=== PATIENT | male | born 1980 | race Caucasian/White ===

== ENCOUNTER 2023-07-12 13:34 | Outpatient (AMB) | payer OTHER, SELFPAY ==
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
== END 2023-07-12 13:59 | disposition home or self-care (01) ==
LOC: HO.HOP 13:34
PROVIDERS: Visit Provider Clinical Nurse Specialist Psychiatric/Mental Health
DX: F32.1 Major depressive disorder, single episode, moderate (principal); F43.12 Post-traumatic stress disorder, chronic; F41.0 Panic disorder [episodic paroxysmal anxiety]
CPT/HCPCS: 99214

== ENCOUNTER → 2023-07-12 13:34 | Outpatient (BNVA) | payer OTHER, SELFPAY | PROVIDERS: Visit Provider Clinical Nurse Specialist Psychiatric/Mental Health | DX: F43.10 Post-traumatic stress disorder, unspecified (principal); F41.0 Panic disorder [episodic paroxysmal anxiety]; F32.9 Major depressive disorder, single episode, unspecified | CPT/HCPCS: 99212 ==

== ENCOUNTER 2023-09-06 11:31 | Outpatient (AMB) | payer OTHER, SELFPAY ==
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
== END 2023-09-06 14:35 | disposition home or self-care (01) ==
LOC: HO.HOP 11:31
PROVIDERS: Visit Provider Clinical Nurse Specialist Psychiatric/Mental Health
DX: F41.0 Panic disorder [episodic paroxysmal anxiety] (principal); F32.9 Major depressive disorder, single episode, unspecified; F43.12 Post-traumatic stress disorder, chronic
CPT/HCPCS: 99214

== ENCOUNTER → 2023-09-06 11:31 | Outpatient (BNVA) | payer OTHER, SELFPAY | PROVIDERS: Visit Provider Clinical Nurse Specialist Psychiatric/Mental Health | DX: F41.0 Panic disorder [episodic paroxysmal anxiety] (principal); F32.9 Major depressive disorder, single episode, unspecified; F43.12 Post-traumatic stress disorder, chronic | CPT/HCPCS: 99212 ==

== ENCOUNTER 2023-12-07 13:40 | Outpatient (AMB) | payer OTHER, SELFPAY ==
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
== END 2023-12-07 14:01 | disposition home or self-care (01) ==
LOC: HO.HOP 13:40
PROVIDERS: PCP Family Medicine; Visit Provider Clinical Nurse Specialist Psychiatric/Mental Health
DX: F43.12 Post-traumatic stress disorder, chronic (principal); F33.1 Major depressive disorder, recurrent, moderate
CPT/HCPCS: 99214

== ENCOUNTER → 2023-12-07 13:40 | Outpatient (BNVA) | payer OTHER, SELFPAY | PROVIDERS: PCP Family Medicine; Visit Provider Clinical Nurse Specialist Psychiatric/Mental Health | DX: F33.1 Major depressive disorder, recurrent, moderate (principal); F43.12 Post-traumatic stress disorder, chronic; Z71.89 Other specified counseling | CPT/HCPCS: 99212 ==

== ENCOUNTER 2024-02-19 13:06 | Outpatient (AMB) | payer OTHER, SELFPAY ==
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
== END 2024-02-19 13:10 | disposition home or self-care (01) ==
LOC: HO.HOP 13:06
PROVIDERS: PCP Family Medicine; Visit Provider Clinical Nurse Specialist Psychiatric/Mental Health
DX: F43.12 Post-traumatic stress disorder, chronic (principal); F33.1 Major depressive disorder, recurrent, moderate
CPT/HCPCS: 99214

== ENCOUNTER → 2024-02-19 13:06 | Outpatient (BNVA) | payer OTHER, SELFPAY | PROVIDERS: PCP Family Medicine; Visit Provider Clinical Nurse Specialist Psychiatric/Mental Health ==

== ENCOUNTER 2024-04-15 11:32 | Outpatient (AMB) | payer OTHER, SELFPAY ==
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
== END 2024-04-15 12:03 | disposition home or self-care (01) ==
LOC: HO.HOP 11:32
PROVIDERS: PCP Family Medicine; Visit Provider Clinical Nurse Specialist Psychiatric/Mental Health
DX: F43.12 Post-traumatic stress disorder, chronic (principal); F33.1 Major depressive disorder, recurrent, moderate; F10.10 Alcohol abuse, uncomplicated
CPT/HCPCS: 99215

== ENCOUNTER → 2024-04-15 11:32 | Outpatient (BNVA) | payer OTHER, SELFPAY | PROVIDERS: PCP Family Medicine; Visit Provider Clinical Nurse Specialist Psychiatric/Mental Health | DX: F43.12 Post-traumatic stress disorder, chronic (principal); F33.1 Major depressive disorder, recurrent, moderate; F10.10 Alcohol abuse, uncomplicated | CPT/HCPCS: 99212 ==

== ENCOUNTER 2024-06-17 11:47 | Outpatient (AMB) | payer OTHER, SELFPAY ==
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
--- OUTSIDE RECORDS SUMMARY | 2024-06-17 12:58 | XMS_ITS | Continuity of Care Document ---
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 lobes, but also present in the lower lobe. Bibasilar atelectasis within the dependent portions of the lungs. Trace right pleural effusion. Mediastinum and carson: No mass or hematoma. No mediastinal or hilar lymphadenopathy. No esophageal abnormality. Normal thyroid. Heart: Heart is normal in size. No pericardial effusion. Mild coronary artery calcification. Aorta: No aortic aneurysm. Pulmonary arteries: Normal caliber. No evidence of pulmonary embolism on this study performed without angiographic technique. Chest wall soft tissues: No acute abnormality. Diaphragm: Intact. Liver: Normal in attenuation and morphology. No suspicious lesion. Gallbladder: No CT evidence of gallbladder pathology. Bile ducts: No biliary ductal dilation. Spleen: Normal in size. Pancreas: No suspicious lesion or ductal dilatation. Adrenal glands: No nodule. Kidneys and ureters: No hydronephrosis, stone, or suspicious lesion. Bladder: Normal. Reproductive organs: Normal prostate and seminal vesicles. Stomach, small bowel, and large bowel: Normal stomach with enteric tube tip in proper position. Normal caliber small bowel without evidence of obstruction. Liquid stool within the descending and sigmoid colon. Appendix: Normal appendix. Peritoneum and retroperitoneum: Trace free fluid in the pelvis. No pneumoperitoneum. No omental or mesenteric lesions. Lymph nodes: No enlarged lymph nodes. Blood vessels: Mild vascular calcifications but no aneurysm. No evidence of venous thrombosis. Abdominal and pelvic wall soft tissues: No acute abnormality. Bones: No acute abnormality. No acute fractures. IMPRESSION: 1. Diffuse groundglass opacities throughout the RIGHT lung. With the presence of minimal mucous/debris in the bronchus intermedius, could represent aspiration pneumonitis. 2. Liquid stool within the descending and sigmoid colon suggestive of diarrheal illness. 3. ET and enteric tubes in good position. 4. Trace free fluid in the pelvis. No free air. I have personally reviewed the images and I agree with this report. WSN: [id number] Ordering Physician: Cici Perea Dictated By: Aubrey Yun DO Dictated Date/Time: 05/24/24 8:26 pm Reviewed By: Azeb Griffin MD Signed By: Azeb Griffin MD Signed Date/Time: 05/24/24 8:31 pm Transcribed By: TOM Transcribed Date/Time: 05/24/24 8:07 pm * Exam Date Time Procedure Performing Provider Status 05/24/24 6:[address] Cervical Spine W/O Contrast Karo Cardona; Snow (Verified) Notes: (CT Cervical Spine W/O Contrast) Reason For Exam: Neck trauma, dangerous injury mechanism;Other: RESULT: CT Cervical Spine W/O Contrast CT Head/Brain W/O Contrast, CT Cervical Spine W/O Contrast INDICATION: Reason: Head trauma, mod-severe; Clinical Question(s): Hematoma TECHNIQUE: Noncontrast head CT using axial technique was reconstructed in axial and coronal planes.Noncontrast spiral CT through the cervical spine was formatted in 3 planes. Automatic tube modulation was used for the cervical spine and iterative dose reconstruction was used for both the head and cervical spine to optimize scan parameters and image quality. CTDIvol Body: 19.80 mGy, DLP Body: 569 mGy*cm. CTDIvol Head: 45.80 mGy, DLP Head: 773 mGy*cm. COMPARISON: This examination was performed emergently using a temporary medical record and no priorimaging or medical history was available for review at the time of this interpretation. FINDINGS: Car Ferrier View Findings, Lines and Tubes: Intubated with c-collar in place. BRAIN AND EXTRA-AXIAL SPACES: No parenchymal hemorrhage, midline shift, or mass effect. Mccann-white matter differentiation is wellpreserved. No acute infarct. Negative insular ribbon and hyperdense vessel signs. Ventricles, sulci, and basilar cisterns are normal. No white matter lesions. No subarachnoid hemorrhage. No subdural or epidural collection. CALVARIUM, SKULL BASE, AND SOFT TISSUES: No fractures or suspicious bony lesions. Mucous retention cyst within the left maxillary sinus. Otherwise the paranasal sinuses and mastoid air cells are clear. Visualized orbits and globes are intact. The extracranial soft tissues are unremarkable. CERVICAL SPINE: No acute fracture. No acute osseous abnormalities. Normal alignment. No locked or perched facet. Intervertebral disc spaces and vertebral body heightsare preserved. OTHER BONES: No acute abnormality. CERVICAL SOFT TISSUES AND LUNG APICES: Normal soft tissues. Scattered small groundglass opacities and tree-in-bud opacities within the included RIGHT lung apex. Normal thyroid. IMPRESSION: No acute abnormality of the head or cervical spine. Groundglass and tree-in-bud opacities in the included RIGHT lung apex. I have personally reviewed the images and I agree with this report. WSN: [id number] Ordering Physician: Cici Perea Dictated By: Aubrey Yun DO Dictated Date/Time: 05/24/24 7:45 pm Reviewed By: Azeb Griffin MD Signed By: Azeb Griffin MD Signed Date/Time: 05/24/24 7:50 pm Transcribed By: TOM Transcribed Date/Time: 05/24/24 7:40 pm Vital Signs Most recent to oldest [Reference Range]: 1 2 3 Weight 117.1 kg (05/27/24 5:31 AM) 116.0 kg (05/24/24 8:52 PM) 116.0 kg (05/24/24 8:49 PM) Oxygen Saturation [94-100 %] 95 % (05/29/24 11:00 AM) 97 % (05/29/24 8:00 AM) 96 % (05/29/24 4:29 AM) Pulse Rate [55-90 bpm] 102 bpm *H* (05/29/24 11:00 AM) 99 bpm *H* (05/29/24 8:00 AM) 87 bpm (05/29/24 4:29 AM) Blood Pressure [90-138/55-84 mm Hg] 128/83mm Hg (05/29/24 11:00 AM) 136/65mm Hg (05/29/24 8:36 AM) 138/84mm Hg (05/29/24 8:00 AM) Respiratory Rate [16-30 br/min] 18 br/min (05/29/24 11:00 AM) 18 br/min (05/29/24 9:36 AM) 18 br/min (05/29/24 4:29 AM) Temperature [96.8-100.4 DegF] 98.3 DegF (05/29/24 11:00 AM) 97.2 DegF (05/29/24 8:00 AM) 98.2 DegF (05/29/24 4:29 AM) Liters per Minute 0 L/min (05/27/24 12:00 PM) 3 L/min (05/27/24 11:00 AM) 3 L/min (05/27/24 10:00 AM) Mode of Delivery (Oxygen) Room air (05/29/24 11:00 AM) Room air (05/29/24 8:00 AM) Room air (05/29/24 4:29 AM) Blood pressure sites Arm, right (05/29/24 11:00 AM) Arm, right (05/29/24 8:00 AM) Arm, right (05/29/24 4:29 AM) Temperature Route Oral (05/29/24 11:00 AM) Oral (05/29/24 8:00 AM) Oral (05/29/24 4:29 AM) Dry Weight 119 kg (05/24/24 8:49 PM) 119 kg (05/24/24 7:50 PM) Weight Obtained Via Bed scale (05/27/24 5:31 AM) Bed scale (05/24/24 8:52 PM) Bed scale (05/24/24 8:49 PM) Social History Social History Type Response Tobacco Use: 4 or less cigar ettes(less than 1/4 pack)/day in last 30 days. Other: Patient 2 cig on patch currently 06/24/2020. Sex Male Sex Representation Male (finding) History and physical note * Cici Perea MD: MODIFY, MODIFY, SIGN, VERIFY, MODIFY, MODIFY, PERFORM, MODIFY Event Display: History and Physical Hospital Authored Date: [id number] Patient: TRAUMA, [id number] Age: 89 years Sex: Male : Associated Diagnoses: None Author: Cici Perea MD Trauma History 43yoM cat1 trauma found down. +LOC, ?EtOH, GCS 9. Per EMS, family heard a thud, found the patient down, tonic movements, small amount of blood in airway. 180/120, bgl 220, HR115, attempted intubationbut he pulled it out, mary mays respirations Upon arrival, primary survey was completed and is as follows: airway patent, breath sounds present equal bilaterally, BP 147/88, pupils 3mm and reactive, GCS 8 (E3 V2 M3). Secondary survey was completed and is documented below. [place] collar was placed in the field for c-spine precaution. IV fluids were administered. 4mg Ativan were given. EFAST was performed and was positive for fluid in the RUQ otherwise negative. He was intubated in the trauma bay due to GCS8 with 20mg etomidate and 100mg rocuronium. OGT was placed with immediate return of dark brown/ sanguineous fluid. Following CXR, the patient was taken to CT for further workup. Past Medical History seizure depression hypertension Past Surgical History unknown Medications unknown Allergies latex, penicillin Family History noncontributory Social History unknown Review of Systems A 14-point review of systems was negative except as documented above Past Medical History Allergies No active allergies have been recorded. Social History Social History No qualifying data available. . Physical Examination Vital Signs: BP 147/88, HR 120, RR52 shallow, SpO2 100% on 15L O2 mask General: no acute distress, alert, awake Head: normocephalic, atraumatic, no hematomas, no abrasions, no wounds, no deformities Face: no ecchymosis, no abrasions, no wounds Eyes: pupils are 3mm, equal, round, and reactive; downward fixed gaze Ears: no hemotympanum, no blood in external auditory canal, no abrasions, no smith's sign Nose: no epistaxis, no deformity Mandible: no deformity, no malocclusion Neck: cervical-collar in place, no hematoma, no ecchymosis, no wounds, trachea midline Chest: symmetric, no deformity, sternum, chest wall, and clavicles are nontender to palpation, no crepitus appreciated Heart: regular rate and rhythm Lungs: clear to auscultation bilaterally Abdomen: soft, nondistended, nontender, no wounds, no ecchymosis, no hematoma Pelvis: stable, nontender Back: no ecchymosis, no abrasions, no hematoma, no wounds Cervical spine: no midline deformities or stepoffs, no tenderness, cervical- collar in place Thoracic spine: no midline deformities or stepoffs, no tenderness Lumbar spine: no midline deformities or stepoffs, no tenderness Extremities: no long bone deformities, no wounds, no abrasions, no ecchymosis, no hematomas, full active range of motion Neurologic: GCS8; 5/5 strength and sensation to light touch intact in the bilateral upper and lowerextremities Vascular: palpable dorsalis pedis and radial pulses bilaterally Results Review Group Detail Date Value w/Units Flags Normal Range Normal Reference Text Comment Ind CHEM GENERAL Glucose, POC 05/25/2024 05:29:00 EST 136 mg/dL H 70-99 CHEM GENERAL Sodium 05/25/2024 03:36:00 EST 139 mmol/L 133-145 CHEM GENERAL Potassium 05/25/2024 03:36:00 EST 4.9 mmol/L 3.6-5.2 CHEM GENERAL Chloride 05/25/2024 03:36:00 EST 99 mmol/L 98-107 CHEM GENERAL Bicarbonate Level 05/25/2024 03:36:00 EST 23 mmol/L 22-29 CHEM GENERAL Anion Gap 05/25/2024 03:36:00 EST 17 mmol/L 4-17 CHEM GENERAL Glucose Level 05/25/2024 03:36:00 EST 171 mg/dL H 70-99 CHEM GENERAL BUN 05/25/2024 03:36:00 EST 16 mg/dL 8-23 CHEM GENERAL Creatinine-Blood 05/25/2024 03:36:00 EST 1.11 mg/dL 0.7-1.2 CHEM GENERAL Estimated GFR Creatinine 05/25/2024 03:36:00 EST 51 ML/MIN/1.73 M2 Y CHEM GENERAL Calcium 05/25/2024 03:36:00 EST 10.3 mg/dL 8.6-10.5 CHEM GENERAL Phosphorus 05/25/2024 03:36:00 EST 2.0 mg/dL L 2.5-4.5 CHEM GENERAL Magnesium 05/25/2024 03:36:00 EST 2.4 mg/dL H 1.6-2.3 CHEM GENERAL Protein, Total 05/25/2024 03:36:00 EST 8.7 Gm/dL H 6.2-8.2 CHEM GENERAL Albumin 05/25/2024 03:36:00 EST 4.6 Gm/dL 3.4-4.8 CHEM GENERAL AG Ratio 05/25/2024 03:36:00 EST 1.1 CHEM GENERAL Alkaline Phosphatase 05/25/2024 03:36:00 EST 100 units/L 40-129 CHEM GENERAL AST (SGOT) 05/25/2024 03:36:00 EST 36 units/L 0-40 CHEM GENERAL ALT (SGPT) 05/25/2024 03:36:00 EST 33 units/L 0-41 CHEM GENERAL Bilirubin, Total 05/25/2024 03:36:00 EST 0.3 mg/dL 0-1.2 BLOOD COUNT & DIFF WBC 05/25/2024 02:28:00 EST 16.0 k/mm3 H 4.0-11.0 BLOOD COUNT & DIFF RBC 05/25/2024 02:28:00 EST 5.44 m/mm3 4.70-6.10 BLOOD COUNT & DIFF Hgb 05/25/2024 02:28:00 EST 16.8 Gm/dL 13.7-17.1 BLOOD COUNT & DIFF Hct 05/25/2024 02:28:00 EST 48.4 % 40.5-50.0 BLOOD COUNT & DIFF MCV 05/25/2024 02:28:00 EST 89.0 femtoliters 80.0-94.0 BLOOD COUNT & DIFF MCH 05/25/2024 02:28:00 EST 30.9 pg 27.0-34.0 BLOOD COUNT & DIFF MCHC 05/25/2024 02:28:00 EST 34.7 Gm/dL 33.0-37.0 BLOOD COUNT & DIFF Platelet Count 05/25/2024 02:28:00 EST 243 k/mm3 150-460 BLOOD COUNT & DIFF RDW-SD 05/25/2024 02:28:00 EST 46.1 femtoliters BLOOD COUNT & DIFF MPV 05/25/2024 02:28:00 EST 11.3 femtoliters 9.4-12.4 BLOOD COUNT & DIFF Nucleated RBC (Automated) 05/25/2024 02:28:00 EST 0.0 #/100 WBC'S BLOOD COUNT & DIFF Abs. NRBC 05/25/2024 02:28:00 EST 0.0 k/mm3 CHEM GENERAL Sodium 05/25/2024 02:28:00 EST HEMOLYZED mmol/L 133-145 Y CHEM GENERAL Potassium 05/25/2024 02:28:00 EST HEMOLYZED mmol/L 3.6-5.2 Y CHEM GENERAL Chloride 05/25/2024 02:28:00 EST HEMOLYZED mmol/L 98-107 Y CHEM GENERAL Bicarbonate Level 05/25/2024 02:28:00 EST HEMOLYZED mmol/L 22-29 Y CHEM GENERAL Anion Gap 05/25/2024 02:28:00 EST Unable to calculate mmol/L 4-17 CHEM GENERAL Glucose Level 05/25/2024 02:28:00 EST HEMOLYZED mg/dL 70-99 Y CHEM GENERAL BUN 05/25/2024 02:28:00 EST HEMOLYZED mg/dL 8-23 Y CHEM GENERAL Creatinine-Blood 05/25/2024 02:28:00 EST HEMOLYZED mg/dL 0.7-1.2 Y CHEM GENERAL Estimated GFR Creatinine 05/25/2024 02:28:00 EST Unable to calculate ML/MIN/1.73 M2 Y CHEM GENERAL Calcium 05/25/2024 02:28:00 EST HEMOLYZED mg/dL 8.6-10.5 Y CHEM GENERAL Phosphorus 05/25/2024 02:28:00 EST HEMOLYZED mg/dL 2.5-4.5 Y CHEM GENERAL Magnesium 05/25/2024 02:28:00 EST HEMOLYZED mg/dL 1.6-2.3 Y CHEM GENERAL Protein, Total 05/25/2024 02:28:00 EST HEMOLYZED Gm/dL 6.2-8.2 Y CHEM GENERAL Albumin 05/25/2024 02:28:00 EST HEMOLYZED Gm/dL 3.4-4.8 Y CHEM GENERAL AG Ratio 05/25/2024 02:28:00 EST Unable to calculate CHEM GENERAL Alkaline Phosphatase 05/25/2024 02:28:00 EST HEMOLYZED units/L 40-129 Y CHEM GENERAL AST (SGOT) 05/25/2024 02:28:00 EST HEMOLYZED units/L 0-40 Y CHEM GENERAL ALT (SGPT) 05/25/2024 02:28:00 EST HEMOLYZED units/L 0-41 Y CHEM GENERAL Bilirubin, Total 05/25/2024 02:28:00 EST HEMOLYZED mg/dL 0-1.2 Y BLOOD GAS pH 05/25/2024 02:16:00 EST 7.40 7.36-7.44 BLOOD GAS pCO2 05/25/2024 02:16:00 EST 39 mm Hg 36-46 BLOOD GAS pO2 05/25/2024 02:16:00 EST 110 mm Hg H 70-96 BLOOD GAS Bicarbonate, Estimated 05/25/2024 02:16:00 EST 24 mmol/L 22-29 BLOOD GAS Specimen Type - Blood Gas 05/25/2024 02:16:00 EST ARTERIAL BLOOD GAS Percent O2 (FIO2) 05/25/2024 02:16:00 EST 40 CHEM GENERAL Glucose, POC 05/24/2024 23:37:00 EST 161 mg/dL H 70-99 CHEM GENERAL Lactate 05/24/2024 22:23:00 EST 3.3 mmol/L H 0.5-2.2 CARDIAC CK, Total 05/24/2024 22:23:00 EST 630 units/L H 0-310 CARDIAC High Sensitivity Troponin (HSTnT) 05/24/2024 22:23:00 EST 56 ng/L C Y MISC. CHEMISTRY Hold Red Top 05/24/2024 22:23:00 EST SPECIMEN DISCARDED AFTER 1 WEEK BLOOD GAS pH (POC) POC Cartridge 05/24/2024 22:10:00 EST 7.36 7.36-7.44 BLOOD GAS pCO2 (POC) POC Cartridge 05/24/2024 22:10:00 EST 41.7 mm Hg 36-46 BLOOD GAS pO2 (POC) POC Cartridge 05/24/2024 22:10:00 EST 212 mm Hg H 70-96 BLOOD GAS Estimated Bicarbonate (POC) POC Cart 05/24/2024 22:10:00 EST 23.3 mmol/L 22-29 BLOOD GAS % O2 Sat Arterial (POC) POC Cartridge 05/24/2024 22:10:00 EST 100 % 96-100 BLOOD GAS FIO2 (POC) POC Cartridge 05/24/2024 22:10:00 EST 70 % BLOOD GAS Base Excess (POC) POC Cartridge 05/24/2024 22:10:00 EST NEGATIVE 2 BLOOD GAS Specimen Type - Blood Gas 05/24/2024 22:10:00 EST ARTERIAL BLOOD COUNT & DIFF Hemoglobin (POC) POC Cartridge 05/24/2024 22:10:00 EST 16.0 Gm/dL 13.7-17.1 BLOOD COUNT & DIFF Hematocrit (POC) POC Cartridge 05/24/2024 22:10:00 EST 47 % 40.5-50.0 CHEM GENERAL Sodium (POC) POC Cartridge 05/24/2024 22:10:00 EST 133 mmol/L 133-145 CHEM GENERAL Potassium (POC) POC Cartridge 05/24/2024 22:10:00 EST 4.3 mmol/L 3.6-5.2 CHEM GENERAL Glucose (POC) POC Cartridge 05/24/2024 22:10:00 EST 180 H 70-99 CHEM GENERAL Ionized Calcium (POC) POC Cartridge 05/24/2024 22:10:00 EST 1.31 mmol/L 1.13-1.32 TOXICOLOGY/TDM Barbiturate Screen, Urine 05/24/2024 20:00:00 EST NONE DETECTED Y TOXICOLOGY/TDM Cannabinoid Screen, Urine 05/24/2024 20:00:00 EST POSITIVE ABN Y TOXICOLOGY/TDM Cocaine Metabolite Screen, Urine 05/24/2024 20:00:00 EST NONE DETECTED Y TOXICOLOGY/TDM Benzodiazepine Screen, Urine 05/24/2024 20:00:00 EST POSITIVE ABN Y TOXICOLOGY/TDM Amphetamine Screen, Urine 05/24/2024 20:00:00 EST NONE DETECTED Y TOXICOLOGY/TDM Opiate Screen, Urine 05/24/2024 20:00:00 EST NONE DETECTED Y BLOOD GAS pH 05/24/2024 19:39:00 EST 7.28 L 7.36-7.44 BLOOD GAS pCO2 05/24/2024 19:39:00 EST 51 mm Hg H 36-46 BLOOD GAS pO2 05/24/2024 19:39:00 EST 110 mm Hg H 70-96 BLOOD GAS Bicarbonate, Estimated 05/24/2024 19:39:00 EST 23 mmol/L 22-29 BLOOD GAS Specimen Type - Blood Gas 05/24/2024 19:39:00 EST ARTERIAL BLOOD GAS Percent O2 (FIO2) 05/24/2024 19:39:00 EST 70 BLOOD COUNT & DIFF WBC 05/24/2024 18:05:00 EST 16.4 k/mm3 H 4.0-11.0 BLOOD COUNT & DIFF RBC 05/24/2024 18:05:00 EST 5.43 m/mm3 4.70-6.10 BLOOD COUNT & DIFF Hgb 05/24/2024 18:05:00 EST 16.4 Gm/dL 13.7-17.1 BLOOD COUNT & DIFF Hct 05/24/2024 18:05:00 EST 49.5 % 40.5-50.0 BLOOD COUNT & DIFF MCV 05/24/2024 18:05:00 EST 91.2 femtoliters 80.0-94.0 BLOOD COUNT & DIFF MCH 05/24/2024 18:05:00 EST 30.2 pg 27.0-34.0 BLOOD COUNT & DIFF MCHC 05/24/2024 18:05:00 EST 33.1 Gm/dL 33.0-37.0 BLOOD COUNT & DIFF Platelet Count 05/24/2024 18:05:00 EST 252 k/mm3 150-460 BLOOD COUNT & DIFF RDW-SD 05/24/2024 18:05:00 EST 46.2 femtoliters BLOOD COUNT & DIFF MPV 05/24/2024 18:05:00 EST 10.0 femtoliters 9.4-12.4 BLOOD COUNT & DIFF Nucleated RBC (Automated) 05/24/2024 18:05:00 EST 0.0 #/100 WBC'S BLOOD COUNT & DIFF Abs. NRBC 05/24/2024 18:05:00 EST 0.0 k/mm3 BLOOD COUNT & DIFF Abs. Neut 05/24/2024 18:05:00 EST 13.2 k/mm3 H 1.3-7.0 BLOOD COUNT & DIFF Abs. Lymph 05/24/2024 18:05:00 EST 2.4 k/mm3 0.8-3.1 BLOOD COUNT & DIFF Abs. [place] 05/24/2024 18:05:00 EST 0.5 k/mm3 0.4-1.3 BLOOD COUNT & DIFF Abs. Eo 05/24/2024 18:05:00 EST 0.1 k/mm3 0.0-0.4 BLOOD COUNT & DIFF Abs. Baso 05/24/2024 18:05:00 EST 0.1 k/mm3 0.0-0.1 BLOOD COUNT & DIFF Neut % 05/24/2024 18:05:00 EST 80.1 % H 44-76 BLOOD COUNT & DIFF Lymph % 05/24/2024 18:05:00 EST 14.8 % L 15-43 BLOOD COUNT & DIFF [place] % 05/24/2024 18:05:00 EST 3.3 % L 4.5-10.5 BLOOD COUNT & DIFF Eos % 05/24/2024 18:05:00 EST 0.5 % 0-6 BLOOD COUNT & DIFF Baso % 05/24/2024 18:05:00 EST 0.4 % 0-2 BLOOD COUNT & DIFF Imm Gran 05/24/2024 18:05:00 EST 0.9 % BLOOD COUNT & DIFF Abs. Imm Gran 05/24/2024 18:05:00 EST 0.2 k/mm3 COAG INR 05/24/2024 18:05:00 EST 1.0 0.9-1.1 COAG Protime (PT) 05/24/2024 18:05:00 EST 10.2 seconds 9.2-11.4 COAG APTT 05/24/2024 18:05:00 EST 25.3 seconds 23.4-33.1 Y CHEM GENERAL Sodium 05/24/2024 18:02:00 EST 140 mmol/L 133-145 CHEM GENERAL Potassium 05/24/2024 18:02:00 EST 3.2 mmol/L L 3.6-5.2 CHEM GENERAL Chloride 05/24/2024 18:02:00 EST 99 mmol/L 98-107 CHEM GENERAL Bicarbonate Level 05/24/2024 18:02:00 EST 24 mmol/L 22-29 CHEM GENERAL Anion Gap 05/24/2024 18:02:00 EST 17 mmol/L 4-17 CHEM GENERAL Glucose Level 05/24/2024 18:02:00 EST 225 mg/dL H 70-99 CHEM GENERAL BUN 05/24/2024 18:02:00 EST 11 mg/dL 8-23 CHEM GENERAL Creatinine-Blood 05/24/2024 18:02:00 EST 0.96 mg/dL 0.7-1.2 CHEM GENERAL Estimated GFR Creatinine 05/24/2024 18:02:00 EST 61 ML/MIN/1.73 M2 Y CHEM GENERAL Calcium 05/24/2024 18:02:00 EST 10.8 mg/dL H 8.6-10.5 CHEM GENERAL Amylase 05/24/2024 18:02:00 EST 230 units/L H 28-100 CHEM GENERAL Lactate 05/24/2024 18:02:00 EST 4.1 mmol/L H 0.5-2.2 TOXICOLOGY/TDM Ethanol, Serum or Plasma 05/24/2024 18:02:00 EST NONE DETECTED mg/dL Y TOXICOLOGY/TDM Salicylate Level 05/24/2024 18:02:00 EST <0.3 mg/dL L 3-10 Y TOXICOLOGY/TDM Acetaminophen Level 05/24/2024 18:02:00 EST <5 mg/L L 15-30 Y MISC. CHEMISTRY Hold Green Top 05/24/2024 18:02:00 EST SPECIMEN DISCARDED AFTER 1 WEEK MISC. CHEMISTRY Hold Gel Top 05/24/2024 18:02:00 EST SPECIMEN DISCARDED AFTER 1 WEEK BLOOD GAS pH Venous (POC) POC Cartridge 05/24/2024 18:00:00 EST 7.35 7.33-7.43 BLOOD GAS pCO2 Venous (POC) POC Cartridge 05/24/2024 18:00:00 EST 45.3 mm Hg 41-51 BLOOD GAS pO2 Venous (POC) POC Cartridge 05/24/2024 18:00:00 EST 23 mm Hg L 35-40 BLOOD GAS Est Bicarbonate (POC) POC Cartridge 05/24/2024 18:00:00 EST 25.2 mmol/L 22-29 BLOOD GAS % O2 Sat Venous (POC) POC Cartridge 05/24/2024 18:00:00 EST 36 BLOOD GAS Base Excess (POC) POC Cartridge 05/24/2024 18:00:00 EST 0 BLOOD GAS Specimen Type - Blood Gas 05/24/2024 18:00:00 EST VENOUS BLOOD COUNT & DIFF Hemoglobin (POC) POC Cartridge 05/24/2024 18:00:00 EST 17.0 Gm/dL 13.7-17.1 BLOOD COUNT & DIFF Hematocrit (POC) POC Cartridge 05/24/2024 18:00:00 EST 50 % 40.5-50.0 CHEM GENERAL Sodium (POC) POC Cartridge 05/24/2024 18:00:00 EST 138 mmol/L 133-145 CHEM GENERAL Potassium (POC) POC Cartridge 05/24/2024 18:00:00 EST 3.2 mmol/L L 3.6-5.2 CHEM GENERAL Glucose (POC) POC Cartridge 05/24/2024 18:00:00 EST 229 H 70-99 CHEM GENERAL Ionized Calcium (POC) POC Cartridge 05/24/2024 18:00:00 EST 1.21 mmol/L 1.13-1.32 VIROLOGY COVID-19 by RT-PCR 05/24/2024 18:00:00 EST NEGATIVE Y BLOOD BANK Blood Type 05/24/2024 17:58:48 EST A Positive BLOOD BANK Antibody Screen 05/24/2024 17:58:48 EST Negative Chest Portable Event Date: 05/24/2024 20:08:49 EST Updated: 05/24/2024 20:24 EST XR Chest Portable This document has an image Reason For Exam Line/Tube Placement;Other: RESULT: Chest Portable Chest Portable Reason: Other:; Line Tube Placement; Clinical Question(s): Other:; Confirm Position, Assess for Complication COMPARISON: X-ray earlier today at 05/24/2024 at 6:12 PM FINDINGS: LINES AND TUBES: Endotracheal tube and enteric tube remain satisfactory. LUNGS AND PLEURA: Low lung volumes. Bibasilar atelectasis. No pleural effusion. No pneumothorax. HEART, MEDIASTINUM AND CARSON: Heart is normal in size. Normal mediastinal and hilar contour. BONES AND SOFT TISSUES: No acute abnormality. IMPRESSION: Endotracheal tube and enteric tube remain satisfactory. Low lung volumes with basilar atelectasis. WSN: [id number] Ordering Physician: Albert Castillo Signature Line Dictated By: Fernando Mcdermott MD Dictated Date/Time: 05/24/24 8:21 pm Reviewed By: Fernando Mcdermott MD Signed By: Fernando Mcdermott MD Signed Date/Time: 05/24/24 8:21 pm Transcribed By: TOM Transcribed Date/Time: 05/24/24 8:[address] Angio Head Event Date: 05/24/2024 18:51:18 EST Updated: 05/24/2024 18:[address] Angio Head This document has an image Reason For Exam Trauma CT Angio Head CT Head/Brain W/O Contrast Event Date: 05/24/2024 18:45:57 EST Updated: 05/24/2024 19:[address] Head/Brain W/O Contrast This document has an image Reason For Exam Head trauma, mod-severe;Other: RESULT: CT Head/Brain W/O Contrast CT Head/Brain W/O Contrast, CT Cervical Spine W/O Contrast INDICATION: Reason: Head trauma, mod-severe; Clinical Question(s): Hematoma TECHNIQUE: Noncontrast head CT using axial technique was reconstructed in axial and coronal planes.Noncontrast spiral CT through the cervical spine was formatted in 3 planes. Automatic tube modulation was used for the cervical spine and iterative dose reconstruction was used for both the head and cervical spine to optimize scan parameters and image quality. CTDIvol Body: 19.80 mGy, DLP Body: 569 mGy*cm. CTDIvol Head: 45.80 mGy, DLP Head: 773 mGy*cm. COMPARISON: This examination was performed emergently using a temporary medical record and no priorimaging or medical history was available for review at the time of this interpretation. FINDINGS: Car Ferrier View Findings, Lines and Tubes: Intubated with c-collar in place. BRAIN AND EXTRA-AXIAL SPACES: No parenchymal hemorrhage, midline shift, or mass effect. Mccann-white matter differentiation is wellpreserved. No acute infarct. Negative insular ribbon and hyperdense vessel signs. Ventricles, sulci, and basilar cisterns are normal. No white matter lesions. No subarachnoid hemorrhage. No subdural or epidural collection. CALVARIUM, SKULL BASE, AND SOFT TISSUES: No fractures or suspicious bony lesions. Mucous retention cyst within the left maxillary sinus. Otherwise the paranasal sinuses and mastoid air cells are clear. Visualized orbits and globes are intact. The extracranial soft tissues are unremarkable. CERVICAL SPINE: No acute fracture. No acute osseous abnormalities. Normal alignment. No locked or perched facet. Intervertebral disc spaces and vertebral body heightsare preserved. OTHER BONES: No acute abnormality. CERVICAL SOFT TISSUES AND LUNG APICES: Normal soft tissues. Scattered small groundglass opacities and tree-in-bud opacities within the included RIGHT lung apex. Normal thyroid. IMPRESSION: No acute abnormality of the head or cervical spine. Groundglass and tree-in-bud opacities in the included RIGHT lung apex. I have personally reviewed the images and I agree with this report. WSN: [id number] Ordering Physician: Cici Perea Signature Line Dictated By: Aubrey Yun DO Date/Time: 05/24/24 7:45 pm Reviewed By: Azeb Griffin MD Signed By: Azeb Griffin MD Signed Date/Time: 05/24/24 7:50 pm Transcribed By: TOM Transcribed Date/Time: 05/24/24 7:[address] Head/Brain W/O Contrast CT Chest W/ Contrast Event Date: 05/24/2024 18:45:57 EST Updated: 05/24/2024 20:[address] Chest W/ Contrast This document has an image Reason For Exam Chest trauma, blunt;Other: RESULT: CT Chest W/ Contrast CT Chest W/ Contrast, CT Abd/Pelvis W/ IV Contrast Only INDICATION: Reason: Chest trauma, blunt; Clinical Question(s): Aortic hilar injury Reason: Other:; Abd trauma, blunt; Clinical Question(s): Other:; solid organ injury, perforation free fluid TECHNIQUE: Helical CT scan of the chest, abdomen, and pelvis with IV contrast, formatted in 3 planes. 100 cc of Isovue 300 was administered intravenously. This study was performed without oral contrast. Weight-based protocol was performed using automatic exposure control. CTDIvol Body: 18.60 mGy, DLP Body: 2204 mGy*cm. COMPARISON: This examination was performed emergently using a temporary medical record and no priorimaging or medical history was available for review at the time of this interpretation. FINDINGS: Car Ferrier view findings, lines and tubes: ET tube approximately 3.5 cm above the allan. Enteric tube with tip in stomach. Minimal debris in the RIGHT bronchus intermedius. Trachea and airways: Patent without evidence of tracheal or endobronchial lesion. Lungs and pleura: Diffuse groundglass opacities throughout the RIGHT lung, most extensive in the RIGHT upper and middle lobes, but also present in the lower lobe. Bibasilar atelectasis within the dependent portions of the lungs. Trace right pleural effusion. Mediastinum and carson: No mass or hematoma. No mediastinal or hilar lymphadenopathy. No esophageal abnormality. Normal thyroid. Heart: Heart is normal in size. No pericardial effusion. Mild coronary artery calcification. Aorta: No aortic aneurysm. Pulmonary arteries: Normal caliber. No evidence of pulmonary embolism on this study performed without angiographic technique. Chest wall soft tissues: No acute abnormality. Diaphragm: Intact. Liver: Normal in attenuation and morphology. No suspicious lesion. Gallbladder: No CT evidence of gallbladder pathology. Bile ducts: No biliary ductal dilation. Spleen: Normal in size. Pancreas: No suspicious lesion or ductal dilatation. Adrenal glands: No nodule. Kidneys and ureters: No hydronephrosis, stone, or suspicious lesion. Bladder: Normal. Reproductive organs: Normal prostate and seminal vesicles. Stomach, small bowel, and large bowel: Normal stomach with enteric tube tip in proper position. Normal caliber small bowel without evidence of obstruction. Liquid stool within the descending and sigmoid colon. Appendix: Normal appendix. Peritoneum and retroperitoneum: Trace free fluid in the pelvis. No pneumoperitoneum. No omental or mesenteric lesions. Lymph nodes: No enlarged lymph nodes. Blood vessels: Mild vascular calcifications but no aneurysm. No evidence of venous thrombosis. Abdominal and pelvic wall soft tissues: No acute abnormality. Bones: No acute abnormality. No acute fractures. IMPRESSION: 1. Diffuse groundglass opacities throughout the RIGHT lung. With the presence of minimal mucous/debris in the bronchus intermedius, could represent aspiration pneumonitis. 2. Liquid stool within the descending and sigmoid colon suggestive of diarrheal illness. 3. ET and enteric tubes in good position. 4. Trace free fluid in the pelvis. No free air. I have personally reviewed the images and I agree with this report. WSN: [id number] Ordering Physician: Cici Perea Signature Line Dictated By: Aubrey Yun DO Dictated Date/Time: 05/24/24 8:26 pm Reviewed By: Azeb Griffin MD Signed By: Azeb Griffin MD Signed Date/Time: 05/24/24 8:31 pm Transcribed By: TOM Transcribed Date/Time: 05/24/24 8:[address] Chest W/ Contrast CT Cervical Spine W/O Contrast Event Date: 05/24/2024 18:45:57 EST Updated: 05/24/2024 19:[address] Cervical Spine W/O Contrast This document has an image Reason For Exam Neck trauma, dangerous injury mechanism;Other: RESULT: CT Cervical Spine W/O Contrast CT Head/Brain W/O Contrast, CT Cervical Spine W/O Contrast INDICATION: Reason: Head trauma, mod-severe; Clinical Question(s): Hematoma TECHNIQUE: Noncontrast head CT using axial technique was reconstructed in axial and coronal planes.Noncontrast spiral CT through the cervical spine was formatted in 3 planes. Automatic tube modulation was used for the cervical spine and iterative dose reconstruction was used for both the head and cervical spine to optimize scan parameters and image quality. CTDIvol Body: 19.80 mGy, DLP Body: 569 mGy*cm. CTDIvol Head: 45.80 mGy, DLP Head: 773 mGy*cm. COMPARISON: This examination was performed emergently using a temporary medical record and no priorimaging or medical history was available for review at the time of this interpretation. FINDINGS: Car Ferrier View Findings, Lines and Tubes: Intubated with c-collar in place. BRAIN AND EXTRA-AXIAL SPACES: No parenchymal hemorrhage, midline shift, or mass effect. Mccann-white matter differentiation is wellpreserved. No acute infarct. Negative insular ribbon and hyperdense vessel signs. Ventricles, sulci, and basilar cisterns are normal. No white matter lesions. No subarachnoid hemorrhage. No subdural or epidural collection. CALVARIUM, SKULL BASE, AND SOFT TISSUES: No fractures or suspicious bony lesions. Mucous retention cyst within the left maxillary sinus. Otherwise the paranasal sinuses and mastoid air cells are clear. Visualized orbits and globes are intact. The extracranial soft tissues are unremarkable. CERVICAL SPINE: No acute fracture. No acute osseous abnormalities. Normal alignment. No locked or perched facet. Intervertebral disc spaces and vertebral body heightsare preserved. OTHER BONES: No acute abnormality. CERVICAL SOFT TISSUES AND LUNG APICES: Normal soft tissues. Scattered small groundglass opacities and tree-in-bud opacities within the included RIGHT lung apex. Normal thyroid. IMPRESSION: No acute abnormality of the head or cervical spine. Groundglass and tree-in-bud opacities in the included RIGHT lung apex. I have personally reviewed the images and I agree with this report. WSN: [id number] Ordering Physician: Cici Perea Signature Line Dictated By: Aubrey Yun DO Dictated Date/Time: 05/24/24 7:45 pm Reviewed By: Azeb Griffin MD Signed By: Azeb Griffin MD Signed Date/Time: 05/24/24 7:50 pm Transcribed By: TOM Transcribed Date/Time: 05/24/24 7:[address] Abd/Pelvis W/ IV Contrast Only Event Date: 05/24/2024 18:45:57 EST Updated: 05/24/2024 20:[address] Abd/Pelvis W/ IV Contrast Only This document has an image Reason For Exam Abd trauma, blunt;Other: RESULT: CT Abd/Pelvis W/ IV Contrast Only CT Chest W/ Contrast, CT Abd/Pelvis W/ IV Contrast Only INDICATION: Reason: Chest trauma, blunt; Clinical Question(s): Aortic hilar injury Reason: Other:; Abd trauma, blunt; Clinical Question(s): Other:; solid organ injury, perforation free fluid TECHNIQUE: Helical CT scan of the chest, abdomen, and pelvis with IV contrast, formatted in 3 planes. 100 cc of Isovue 300 was administered intravenously. This study was performed without oral contrast. Weight-based protocol was performed using automatic exposure control. CTDIvol Body: 18.60 mGy, DLP Body: 2204 mGy*cm. COMPARISON: This examination was performed emergently using a temporary medical record and no priorimaging or medical history was available for review at the time of this interpretation. FINDINGS: Car Ferrier view findings, lines and tubes: ET tube approximately 3.5 cm above the allan. Enteric tube with tip in stomach. Minimal debris in the RIGHT bronchus intermedius. Trachea and airways: Patent without evidence of tracheal or endobronchial lesion. Lungs and pleura: Diffuse groundglass opacities throughout the RIGHT lung, most extensive in the RIGHT upper and middle lobes, but also present in the lower lobe. Bibasilar atelectasis within the dependent portions of the lungs. Trace right pleural effusion. Mediastinum and carson: No mass or hematoma. No mediastinal or hilar lymphadenopathy. No esophageal abnormality. Normal thyroid. Heart: Heart is normal in size. No pericardial effusion. Mild coronary artery calcification. Aorta: No aortic aneurysm. Pulmonary arteries: Normal caliber. No evidence of pulmonary embolism on this study performed without angiographic technique. Chest wall soft tissues: No acute abnormality. Diaphragm: Intact. Liver: Normal in attenuation and morphology. No suspicious lesion. Gallbladder: No CT evidence of gallbladder pathology. Bile ducts: No biliary ductal dilation. Spleen: Normal in size. Pancreas: No suspicious lesion or ductal dilatation. Adrenal glands: No nodule. Kidneys and ureters: No hydronephrosis, stone, or suspicious lesion. Bladder: Normal. Reproductive organs: Normal prostate and seminal vesicles. Stomach, small bowel, and large bowel: Normal stomach with enteric tube tip in proper position. Normal caliber small bowel without evidence of obstruction. Liquid stool within the descending and sigmoid colon. Appendix: Normal appendix. Peritoneum and retroperitoneum: Trace free fluid in the pelvis. No pneumoperitoneum. No omental or mesenteric lesions. Lymph nodes: No enlarged lymph nodes. Blood vessels: Mild vascular calcifications but no aneurysm. No evidence of venous thrombosis. Abdominal and pelvic wall soft tissues: No acute abnormality. Bones: No acute abnormality. No acute fractures. IMPRESSION: 1. Diffuse groundglass opacities throughout the RIGHT lung. With the presence of minimal mucous/debris in the bronchus intermedius, could represent aspiration pneumonitis. 2. Liquid stool within the descending and sigmoid colon suggestive of diarrheal illness. 3. ET and enteric tubes in good position. 4. Trace free fluid in the pelvis. No free air. I have personally reviewed the images and I agree with this report. WSN: [id number] Ordering Physician: Cici Perea Signature Line Dictated By: Aubrey Yun DO Dictated Date/Time: 05/24/24 8:26 pm Reviewed By: Azeb Griffin MD Signed By: Azeb Griffin MD Signed Date/Time: 05/24/24 8:31 pm Transcribed By: TOM Transcribed Date/Time: 05/24/24 8:07 pm Chest Portable Event Date: 05/24/2024 18:16:58 EST Updated: 05/24/2024 18:30 EST XR Chest Portable This document has an image Reason For Exam Other: RESULT: Chest Portable Chest Portable Reason: Other:; Clinical Question(s): Trauma COMPARISON: None. FINDINGS: LINES AND TUBES: Endotracheal tube tip 3.4 cm above the allan. Enteric tube tip and side-port are beneath the left hemidiaphragm within the stomach. LUNGS AND PLEURA: Low lung volumes with mild basilar atelectasis. Lungs are otherwise clear with no consolidation. No pleural effusion. No pneumothorax. HEART, MEDIASTINUM AND CARSON: Heart is normal in size. Normal mediastinal and hilar contour. BONES AND SOFT TISSUES: No acute abnormality. IMPRESSION: Adequately placed lines and tubes. WSN: [id number] Ordering Physician: Cici Perea Signature Line Dictated By: Fernando Mcdermott MD Dictated Date/Time: 05/24/24 6:27 pm Reviewed By: Fernando Mcdermott MD Signed By: Fernando Mcdermott MD Signed Date/Time: 05/24/24 6:27 pm Transcribed By: TOM Transcribed Date/Time: 05/24/24 6:26 pm Chest Portable Impression and Plan 43yoM cat1 trauma found down. +LOC, ?EtOH, GCS 9. Per EMS, family heard a thud, found the patient down, tonic movements, small amount of blood in airway. 180/120, bgl 220, HR115, attempted intubationbut he pulled it out, mary mays respirations Upon arrival, primary survey was completed and is as follows: airway patent, breath sounds present equal bilaterally, BP 147/88, pupils 3mm and reactive, GCS 8 (E3 V2 M3). Secondary survey was completed and is documented below. [place] collar was placed in the field for c-spine precaution. IV fluids were administered. 4mg Ativan were given. EFAST was performed and was positive for fluid in the RUQ otherwise negative. He was intubated in the trauma bay due to GCS8 with 20mg etomidate and 100mg rocuronium. OGT was placed with immediate return of dark brown/ sanguineous fluid. Following CXR, the patient was taken to CT for further workup. No external signs of trauma. No injuries identified on haji scan. Lateral transfer to medicine for seizures. Injuries none Interventions intubation OGT placement Consultants none Plan tertiary in am rest of care per primary team Discussed with Dr. Gloria Please page Trauma Surgery with any questions or concerns [id number]. Admission evaluation note * Codie Mcclelland DO: PERFORM Event Display: Admission Note Authored Date: Patient: ??TRAUMA, [id number] ? Age:??89 Years?Sex:??Male?:???? Chief Complaint/Reason for Consultation fall History of Present Illness 43-year-old male past medical history of ?Seizures, BIBA on 05/24 as a category 1 trauma after a fall, due to low GCS unresponsiveness patient was intubated in the ED, and admitted to the MICU for status epilepticus. ?? Per ,??patient has not been feeling good for couple days. ??States that he has been having systolic BPs in the 220s.?? States that today she heard patient fall from the bed??and she came to bedside to see patient was, found??appear to be on tail end of a seizure .?? She states that patient hasa history of seizures, and notes that patient inconsistently taking medications and did not take any of his antiepileptic medications??the day of admission.?? Also the patient has a history of??alcohol abuse, though has not been drinking significantly in the recent days.?? Denies any recent sick contacts.? In the ED, patient was hemodynamically stable, started on AC/VC with FiO2 70%.?? Labs significant for leukocytosis 16.4 with neutrophilia, hypokalemia 3.2, hyperglycemia 220s, hypercalcemia 10.8 and lactic acidosis, lactate 4 with negative ethanol.?? Chest x-ray with mild bibasilar atelectasis, no obvious signs of consolidation, effusions or pneumothorax.??CT head/cervical spine with no acute abnormalities. ??Patient was loaded with Keppra in the ED. ??Patient was started on propofol drip due to concerns for status epilepticus. Review of Systems pt intubated and sedated?? Objective Measurements?? Weight: 116 kg (05/24/24) Dry Weight: 119 kg (05/24/24) ? Vital Signs?? Temperature: 97.7 DegF (05/24/24 22:00:00) Temperature Route: Core Bladder (05/24/24 22:00:00) Pulse Rate:??118 bpm??High (05/24/24 20:49:00) Heart Rate Monitored:??119 bpm??High (05/24/24 22:19:00) Respiratory Rate:??31 br/min??High (05/24/24 22:00:44) Vented: Yes (05/24/24 22:00:00) Systolic Blood Pressure: 106 mm Hg (05/24/24 22:00:00) Diastolic Blood Pressure: 75 mm Hg (05/24/24 22:00:00) Blood pressure sites: Leg, left (05/24/24 22:00:00) Mean Arterial Pressure: 83 mm Hg (05/24/24 20:49:00) Pulse Pressure: 31 mm Hg (05/24/24 22:00:00) Oxygen Saturation: 94 % (05/24/24 22:19:00) Mode of Delivery (Oxygen): Ventilator (05/24/24 22:00:00) FiO2: 40 % (05/24/24 22:19:00) End Tidal CO2: 27 mm Hg (05/24/24 22:19:00) ? Intake/Output? 05/24 20:11 05/24 07:00 05/23 07:00 05/22 07:00 05/21 07:00 ?? 05/24 23:03 05/24 23:03 05/24 06:59 05/23 06:59 05/22 06:59 Intake ?450.5 ?450.5 ?0 ?0 ?0 Output ?965 ?965 ?0 ?0 ?0 Net Total ? -514.5 ? -514.5 ?0 ?0 ?0 ? Physical Exam Constitutional: intubated and sedated Respiratory: mechanically ventilated, diminished on the right Cardiovascular: S1 S2 regular. No murmurs, rubs or gallops. Gastrointestinal: Abdomen soft, non-tender, non-distended.?? Neurologic: sedated Assessment/Plan 43-year-old male past medical history of seizures, HTN, AUD??who was??BIBA on 05/24 as a category 1 trauma after a fall and concern for a seziure, and was ultimately intubated due to low GCS unresponsiveness, and admitted to the MICU for status epilepticus, currently on propofol and versed ggt ?? Neuro Status epilepticus AUD Presented??after??fall and??per patient was seizing It appears patient was Keppra loaded in the ED??(reported on the paper chart) Likely??seizure secondary to??medication noncompliance??(per patient??is inconsistent with doses and did not take his doses??on day of admission) Will treat status epilepticus with??sedation from propofol??and Versed,??will consult neurology??and keep patient on??EEG Currently low concern for??alcohol withdrawal ( reports hx of alcohol abuse however has not drank significantly in the last couple of days) ?? Plan: - Sedation with??propofol drip at 60??(not to be titrated),??and??Versed??drip at 1 (not to be titrated) - continuous EEG - Neurology consult - Continue home??lamotrigine 100 mg daily?? - Continue??home topiramate 100 mg twice daily (taking to confirm patient is taking topiramate as the patient's other chart does not??show this medication being prescribed) - Hold home??gabapentin,??Latuda,??alprazolam,??prazosin - fent ggt and fentanyl prn??, goal CPOT<2 ?? Cardiovascular ?Hypertensive crisis reports pt with SBP 220s at home last week, and patient stated he had a brief episode of chestpain? Plan: - EKG and troponin - Holding home lisinopril? Pulmonary Intubated for??airway protection Aspiration Pneumonitis Patient was intubated on 05/24 after??presenting with a fall,??due to low GCS and unresponsiveness patient was intubated in the ED Currently on AC/VC??with??70% FiO2 ?? Plan: -Repeat??ABG -Will leave patient on AC/VC given he is currently in status epilepticus? GI No active issues ?? Plan: - Pantoprazole for??GI prophylaxis - If intubated for greater than 48 hours??can??consider starting tube feeds ?? Renal Lactic acidosis 2/2 seizure Hypocalcemia Hypokalemia Likely lactic acidosis 2/2 seizures, will recheck lactate level, if not clearing will give IVF Will check CK level to assess if pt is at risk for developing rhabdomyolysis? Plan: - Check lactate and CK - Replete lytes prn - Consider IVF if concern for rhabdomyolysis or not clearing lactate ?? Endocrine Hyperglycemia ?? Plan: - Insulin sign scale and POC's q6h while NPO?? - Hypoglycemia measures - Maintain euglycemia (BGL 140-180) ?? Infectious Disease SIRS Tachycardia and leukocytosis on admission, however suspect that leukocytosis is reactive in settingof seizure Low suspicion for infection. Per no recent illness. Pt does have right sided aspiration seen on CT, however currently low suscipion for aspiration PNA, will hold off on abx, however if pt beginsto be febrile will begin abx ?? Plan: - Monitor WBC and Temp?? - ET aspirate culture - If febrile, will consider ceftriaxone for coverage of aspiration PNA? Heme/Onc Leukocytosis Likely reactive 2/2 seizure, low suspicion for infectious eitology? Plan: - Monitor WBC daily? Quality Measures: Code Status:??Full (confirmed with on 05/24) Diet:??NPO DVT prophylaxis:??Lovenox Stress prophylaxis:??Pantoprazole?? Family Update:?? Adenike ([phone]) updated on 05/24/24.??Pt name is Christel Arreaga [facility] 1980 ( will come in [facility] to verify) ?? Patient??discussed with attending physician ?? Codie Mcclelland, DO Internal Medicine, PGY-2 Pager [phone] Histories Allergies Allergies ?(Active and Proposed Allergies Only) Latex? (Severity: Unknown severity, Onset: Unknown) penicillin? (Severity: Unknown severity, Onset: Unknown) ? Past Medical History/Problem List No problems documented. ? Past Surgical History No surgery history documented. ? Social History No social history documented. ? Family History No Family History documented. ? Medications Home Medications Alprazolam (ALPRAZolam 1 mg oral tablet)?1?tab(s)?1?Milligram?By Mouth?3 times a day?as needed?for anxiety Gabapentin (gabapentin 100 mg oral capsule)?200?Milligram?2?capsule?By Mouth?2 times a day Lamotrigine (lamotrigine 100 mg oral tablet, disintegrating)?1?tab(s)?100?Milligram?By Mouth?Daily Lisinopril (lisinopril 20 mg oral tablet)?20?Milligram?1?tablet?By Mouth?Daily lurasidone (Latuda 60 mg oral tablet)?1?tab(s)?60?Milligram?By Mouth?Daily Nicotine (Nicotine 2 mg gum)?1?Each?2?Milligram?Chew?Every 2 hours?as needed?as needed for smoking cessation Nicotine (nicotine 14 mg/24 hr transdermal film, extended release)?1?patch(es)?Topically?Daily Prazosin (prazosin 1 mg oral capsule)?1?Milligram?1?capsule?By Mouth?2 times a day Topiramate (topiramate 100 mg oral tablet)?1?tab(s)?100?Milligram?By Mouth?2 times a day ? Inpatient Medications Medications (20) Active SCHEDULED: (6) Enoxaparin 40 mg Inj (Enoxaparin Inj) ??40 mg 0.4 mL, Subcutaneous Injection, Daily Insulin Lispro 100 units/mL Inj (Insulin LISPRO Sliding Scale) ??2-10 units, Subcutaneous Injection, Every 6 hours LamoTRIGINE 100 mg Tablet (lamotrigine 100 mg oral tablet) ??100 mg, By Mouth, Daily Pantoprazole 40 mg EC Tablet (pantoprazole 40 mg oral delayed release tablet) ??40 mg, By Mouth, Daily Potassium Chloride 10 mEq / 100 mL (Potassium Chloride 10 mEq/100 mL IVPB) ??10 mEq 100 mL, IVPB, Every hour Topiramate 100 mg Tablet (Topiramate Tablet) ??100 mg, By Mouth, 2 times a day CONTINUOUS: (3) Fentanyl 1000mcg/100mL NaCL 1,000 mcg (FENTanyl 1000mcg / 100mL NaCl 1,000 mcg) ??1,000 mcg 100 mL,IV Infusion Midazolam 100mg / 100mL NaCL 100 mg (Versed 100mg / 100mL NaCL (Titrate) 100 mg) ??100 mg 100 mL, IV Infusion Propofol 10mg/mL Cont IV (100mL) 1,000 mg (Propofol 1% /100 mL 1,000 mg) ??1,000 mg 100 mL, IV Infusion PRN: (11) Acetaminophen 325 mg Tablet (Tylenol 325 mg oral tablet) ??975 mg, Orogastric Tube, Every 6 hours Bisacodyl 10 mg Suppository (Bisacodyl Supp) ??10 mg 1 supp, Rectally, 2 times a day Dextrose Inj Syringe (Dextrose 50% Inj Syringe (25Gm)) ??12.5 Gm, IV Push Slowly, Every 20 minutes Dextrose Inj Syringe (Dextrose 50% Inj Syringe (25Gm)) ??25 Gm, IV Push Slowly, Every 15 minutes Docusate Sodium 10 mg/mL Liquid UD (Colace Liquid) ??100 mg 10 mL, By Mouth, 2 times a day FENTanyl 50 mcg/mL Inj (2 mL) (FENTanyl Inj) ??25 mcg 0.5 mL, IV Push Slowly, Every 4 hours Glucagon 1 mg Inj (Glucagon Inj) ??1 mg, Intramuscular, Once Glucose 40% Gel (15 Gm) (Glucose Gel) ??15 Gm, By Mouth, Every 20 minutes Glucose 40% Gel (15 Gm) (Glucose Gel) ??30 Gm, By Mouth, Every 20 minutes Magnesium Hydroxide 8% Susp UD (Milk of Magnesia Liquid) ??30 mL, By Mouth, 2 times a day Senna Tablet (Senna 8.6 mg oral tablet) ??8.6 mg 1 tablet, Orogastric Tube, Daily ? Results Recent Labs BLOOD BANK Blood Type A Positive ()?? 05/24/2024 17:58 Antibody Screen Negative ()?? 05/24/2024 17:58 ?? BLOOD COUNT & DIFF WBC 16.4 k/mm3 (High)?? 05/24/2024 18:05 RBC 5.43 m/mm3 ()?? 05/24/2024 18:05 Hgb 16.4 Gm/dL ()?? 05/24/2024 18:05 Hct 49.5 % ()?? 05/24/2024 18:05 MCV 91.2 femtoliters ()?? 05/24/2024 18:05 MCH 30.2 pg ()?? 05/24/2024 18:05 MCHC 33.1 Gm/dL ()?? 05/24/2024 18:05 Platelet Count 252 k/mm3 ()?? 05/24/2024 18:05 RDW-SD 46.2 femtoliters ()?? 05/24/2024 18:05 MPV 10.0 femtoliters ()?? 05/24/2024 18:05 Nucleated RBC (Automated) 0.0 #/100 WBC'S ()?? 05/24/2024 18:05 Abs. NRBC 0.0 k/mm3 ()?? 05/24/2024 18:05 Abs. Neut 13.2 k/mm3 (High)?? 05/24/2024 18:05 Abs. Lymph 2.4 k/mm3 ()?? 05/24/2024 18:05 Abs. [place] 0.5 k/mm3 ()?? 05/24/2024 18:05 Abs. Eo 0.1 k/mm3 ()?? 05/24/2024 18:05 Abs. Baso 0.1 k/mm3 ()?? 05/24/2024 18:05 Neut % 80.1 % (High)?? 05/24/2024 18:05 Lymph % 14.8 % (Low)?? 05/24/2024 18:05 [place] % 3.3 % (Low)?? 05/24/2024 18:05 Eos % 0.5 % ()?? 05/24/2024 18:05 Baso % 0.4 % ()?? 05/24/2024 18:05 Hemoglobin (POC) POC Cartridge 16.0 Gm/dL ()?? 05/24/2024 22:10 Hematocrit (POC) POC Cartridge 47 % ()?? 05/24/2024 22:10 Imm Gran 0.9 % ()?? 05/24/2024 18:05 Abs. Imm Gran 0.2 k/mm3 ()?? 05/24/2024 18:05 ?? BLOOD GAS pH (POC) POC Cartridge 7.36 ()?? 05/24/2024 22:10 pCO2 (POC) POC Cartridge 41.7 mm Hg ()?? 05/24/2024 22:10 pO2 (POC) POC Cartridge 212 mm Hg (High)?? 05/24/2024 22:10 Estimated Bicarbonate (POC) POC Cart 23.3 mmol/L ()?? 05/24/2024 22:10 % O2 Sat Arterial (POC) POC Cartridge 100 % ()?? 05/24/2024 22:10 FIO2 (POC) POC Cartridge 70 % ()?? 05/24/2024 22:10 pH Venous (POC) POC Cartridge 7.35 ()?? 05/24/2024 18:00 pCO2 Venous (POC) POC Cartridge 45.3 mm Hg ()?? 05/24/2024 18:00 pO2 Venous (POC) POC Cartridge 23 mm Hg (Low)?? 05/24/2024 18:00 Est Bicarbonate (POC) POC Cartridge 25.2 mmol/L ()?? 05/24/2024 18:00 % O2 Sat Venous (POC) POC Cartridge 36 ()?? 05/24/2024 18:00 Base Excess (POC) POC Cartridge NEGATIVE 2 ()?? 05/24/2024 22:10 pH 7.28 (Low)?? 05/24/2024 19:39 pCO2 51 mm Hg (High)?? 05/24/2024 19:39 pO2 110 mm Hg (High)?? 05/24/2024 19:39 Bicarbonate, Estimated 23 mmol/L ()?? 05/24/2024 19:39 Specimen Type - Blood Gas ARTERIAL ()?? 05/24/2024 22:10 Percent O2 (FIO2) 70 ()?? 05/24/2024 19:39 ?? CHEM GENERAL Sodium 140 mmol/L ()?? 05/24/2024 18:02 Potassium 3.2 mmol/L (Low)?? 05/24/2024 18:02 Chloride 99 mmol/L ()?? 05/24/2024 18:02 Bicarbonate Level 24 mmol/L ()?? 05/24/2024 18:02 Anion Gap 17 mmol/L ()?? 05/24/2024 18:02 Sodium (POC) POC Cartridge 133 mmol/L ()?? 05/24/2024 22:10 Potassium (POC) POC Cartridge 4.3 mmol/L ()?? 05/24/2024 22:10 Glucose Level 225 mg/dL (High)?? 05/24/2024 18:02 Glucose (POC) POC Cartridge 180 (High)?? 05/24/2024 22:10 BUN 11 mg/dL ()?? 05/24/2024 18:02 Creatinine-Blood 0.96 mg/dL ()?? 05/24/2024 18:02 Estimated GFR Creatinine 61 ML/MIN/1.73 M2 ()?? 05/24/2024 18:02 Calcium 10.8 mg/dL (High)?? 05/24/2024 18:02 Ionized Calcium (POC) POC Cartridge 1.31 mmol/L ()?? 05/24/2024 22:10 Amylase 230 units/L (High)?? 05/24/2024 18:02 Lactate 4.1 mmol/L (High)?? 05/24/2024 18:02 ?? COAG INR 1.0 ()?? 05/24/2024 18:05 Protime (PT) 10.2 seconds ()?? 05/24/2024 18:05 APTT 25.3 seconds ()?? 05/24/2024 18:05 ?? MISC. CHEMISTRY Hold Gel Top SPECIMEN DISCARDED AFTER 1 WEEK ()?? 05/24/2024 18:02 ?? TOXICOLOGY/TDM Ethanol, Serum or Plasma NONE DETECTED mg/dL ()?? 05/24/2024 18:02 Salicylate Level <0.3 mg/dL (Low)?? 05/24/2024 18:02 Barbiturate Screen, Urine NONE DETECTED ()?? 05/24/2024 20:00 Cannabinoid Screen, Urine POSITIVE (Abnormal)?? 05/24/2024 20:00 Cocaine Metabolite Screen, Urine NONE DETECTED ()?? 05/24/2024 20:00 Benzodiazepine Screen, Urine POSITIVE (Abnormal)?? 05/24/2024 20:00 Amphetamine Screen, Urine NONE DETECTED ()?? 05/24/2024 20:00 Opiate Screen, Urine NONE DETECTED ()?? 05/24/2024 20:00 Acetaminophen Level <5 mg/L (Low)?? 05/24/2024 18:02 ?? VIROLOGY COVID-19 by RT-PCR NEGATIVE ()?? 05/24/2024 18:00 ? * Masoud Foster DO: PERFORM Event Display: Admission Note Authored Date: [id number] I have seen and evaluated this patient and they required critical care services due to critical andmedical diagnoses and problems listed below. This critical care service was provided in supervisionof house staff (residents and/or fellows taking care of the patient), and/or [id number] with an advanced practice provider yet independently provided critical care services with additional critical care time as documented below. ?? Impression: 43M with PMH of seizure disorder, alcohol use disorder, and hypertension, who was admitted 05/24/24 for a fall, found to have status epilepticus. His significant other does note this seizure lasted much longer than those she has seen in the past and that he has been severely hypertensive with SBP well into the 200s recently. She feels he has not been taking his medications as prescribed, which maybe the reason his BP is an issue and she is unsure about his AEDs. Course complicated by acute hypoxemic and hypercapnic respiratory failure with probable aspiration as well. Since starting Versed gtt with propofol at 60, he has ceased seizing. ?? Problems: Status epilepticus Acute hypoxemic and hypercapnic respiratory failure Probable aspiration - tree-in-bud caught on CT C-spine at R apex Possible hypertensive crisis Lactic acidosis Hypokalemia Hyperglycemia Fall Alcohol use disorder - Not currently heavy use according to significant other ?? Plan: Neuro: Continue propofol at 60 and Versed at 1. Resume home AEDs. VEEG and Neuro consult. Fentanyl for pain. CV: Currently normotensive -> continue to monitor Pulm: Continue AC settings for now and repeat ABG ID: Observe off abx for now. Obtain ET aspirate. Renal: Repeat lactate GI: PPI for GI ppx. NPO for now -> consider TF in am if no longer significant OGT output. Endo: POCs q6h with ISS Heme: Lovenox for DVT ppx ?? This patient is critically ill due to the problems and diagnoses listed above, with a high probability of life-threatening deterioration or . I personally spent 60 minutes of non-overlapping critical care time evaluating and managing the patient, excluding time spent teaching or performing separately billable procedures. * Codie Mcclelland DO: PERFORM Event Display: Admission Note Authored Date: Patient's ??presented overnight??and confirmed patient's identity. Overnight patient became??febrile and increasing tachycardia, thus started on??ceftriaxone for??aspiration pneumonia. EKG study * Event Display: ECG 12-Lead Authored Date: Please click on pdf link to open report * Event Display: ECG 12-Lead Authored Date: Ventricular Rate: 106 BPM Atrial Rate: 106 BPM P-R Interval: 120 ms QRS Duration: 100 ms Q-T Interval: 346 ms QTC Calculation(Bazett): 459 ms P [place]: 41 degrees R [place]: 82 degrees T [place]: -11 degrees Sinus tachycardia Nonspecific ST and T wave abnormality Abnormal ECG No previous ECGs available Confirmed by FABRICIO NELSON ([id number]) on 05/26/2024 1:53:17 PM Corea: FABRICIO NELSON [facility] Progress note * Yenni Carbajal: PERFORM, SIGN, VERIFY Event Display: Progress Note Hospital Authored Date: Patient: CHRISTEL ARREAGA Age: 43 years Sex: Male : 1980 Associated Diagnoses: None Author: Yenni Carbajal Findings Problem Related to Alteration in Neurological : Alteration in Neurological Function/new 05/29/2024 11:00 EST Alteration in Neuro status Related to Seizure Goals & Outcomes, Neurological Lab studies/diagnostic tests within pt specific limits, Pt is safe with transfers & activities, Pt will be discharged without infection, Pt will be hemodynamically stable, Pt will be Neurologically stable, Pt will become pain free with appropriate intervention, Pt will maintain intact skin integrity, Pt will remain free from injury, Pt will resume/maintain ad equate cardiac output, Pt will state importance of adhering to medication regime, Pt/caregiver willreceive psychosocial support as needed, Pt/caregiver will state understanding of rehab plan, Pt/caregiver will state strategies to reduce risk factors, Pt/caregiver will state understanding aspiration precautions, Pt/caregiver will state understanding dietary modifications, Pt/caregiver will state understanding of disease process, Pt/caregiver will state understanding of plan/goals of care, Pt will be free from complications r/t seizure activity, Pt will be seizure controlled, Pt will remain free from injury post seizure activity, Pt will return to baseline after post ictal phase, Pt/caregiver will state understanding of home management Interventions, Neurological Assess/monitor neurologic status, Assess/monitor VS per unit standards & prn, Call/Report variances in assessments to provider, Collaborate with provider re: medication regime, Document & Monitor O2 Sats; Administer O2 as ordered, Emergency airway equipment at bedside, Identify psychosocial issues related to diagnosis/illness, Keep patient's head & body in good alignment, Maintain patient safety if unsteady gait, Monitor for headaches, nausea, vomiting, Monitor speech fluency, aphasia, word finding difficulty, Physical assessment per unit standards, Provide emotional support to Pt/caregiver, Teach & encourage deep breath & cough exercises, Teach and encourage use of Incentive spirometer, Teach pt/caregiver discharge plan & follow up care, Teach pt/caregiver on plan of care, treatment, s/s & meds, Teach pt/caregiver on use of pain scale, Assess & monitor for seizure activity, Assess for aspiration and status epileptics, Assessseizure Hx, frequency/type/presence of aura, Document length of postictal phase & postictal activity, Document length of seizure and activity during seizure, During seizure activity maintain pt safety & privacy, Initiate & maintain Seizure Precautions, Minimize seizure triggering stimuli (i.e. light, noise, pain, Monitor oxygenation/ventilation during seizure activity, Monitor/maintain airway patency, Teach Pt/caregiver how to respond to seizures, Teach Pt/caregiver maintaining daily seizure log, Teach Pt/caregiver medications & schedule, Teach Pt/caregiver s/s of too much medi cation, Teach Pt/caregiver safe storage of medication at home BH Goals/Interventions, Neurological Yes Neurological, Problem Start 05/24/2023 21:00 Reviewed plan with, Neurological Patient Patient Progression, Neurological Pt progressing according to plan . Nursing Data Neurological Data. : Neurological Data. 05/29/2024 8:00 EST Tongue Disposition Midline Neurological Symptoms Alteration in speech quality, Difficulty swallowing, Headache: persistent, changing or sudden, History of seizures, Unsteady gait/Ataxia, Weakness or loss of muscle strength Level of Consciousness Full Consciousness Orientated to person, place, time Person, Place, Time, Event Hallucinations None Facial Symmetry Intact Pupil description, left Regular Pupil description, right Regular Pupil reaction, left Brisk Pupil reaction, right Brisk Pupil Size, Left 3 mm Pupil Size, Right 3 mm Strength LUE 5-Active movement against gravity & full resistance Strength RUE 5-Active movement against gravity & full resistance Strength LLE 5-Active movement against gravity & full resistance Strength RLE 5-Active movement against gravity & full resistance Tone LUE Normal Tone RUE Normal Tone LLE Normal Tone RLE Normal Sensation LUE Intact Sensation RUE Intact Sensation LLE Intact Sensation RLE Intact Movement LUE Spontaneous Movement RUE Spontaneous Movement LLE Spontaneous Movement RLE Spontaneous Gait Unsteady Response Eye Opening Spontaneously Motor Response-Adult Obeys commands Verbal Response-Adult Oriented and converses [place] Coma Score 15 1 - 10 Pain Scale Score 10 Neuro WNL except Eyes and Movements Conjugate gaze: Move in same direction at same speed Headache Mild Headaches, Characteristic Bilateral Headaches, Duration Constant Memory Intact Swallow - Neuro Gag diminished, Other: Painful to swallow r/t extubation . Narrative/Incidental Please see interactive flowsheets for full assessment details. Pt. is A&O x4 this AM, speech clear, face symmetrical, tongue midline, PERRLA. Denies numbness,tingling, dizziness, and vision changes. C/O mild WILDER and 10/10 tooth and tongue pain. Pt on RA, denies chest pain and SOB. Continent of B&B, ambulating to bathroom with standby assist. Order for discharge placed. Discharge paperwork completed, went over with patient, understood and signed by patient. IV removed catheter intact, pt. wheeled down to lobby with significant other and stationary engineer refrigeration. No questions or concerns about discharge information. Safety maintained throughout the shift, bed in lowest position, wheels are locked, bed alarm on, call morales within reach. Will continue to follow the plan of care and MD orders.. Discharge Information Case Management Discharge Plan : Case Management Discharge Plan Data 05/29/2024 16:30 EST Discharge Level of Care at Discharge Homehealth/VNA Discharge VNA/Hospice/Home Care Center Well 05/29/2024 14:14 EST Discharge Level of Care at Discharge Homehealth/VNA Discharge VNA/Hospice/Home Care Center Well Discharge Transportation Arranged Life Partner Name of Agency #1 [facility] Service Categories #1 Jail, Other: Med Management Name of Person Notified of Transfer Patient Pulmonary Rehab Discharge : Pulmonary Rehab Discharge Status 05/27/2024 8:36 EST PEEP 5 05/27/2024 7:00 EST PEEP 5 05/27/2024 5:00 EST PEEP 5 05/27/2024 4:00 EST PEEP 5 05/27/2024 3:00 EST PEEP 5 05/27/2024 2:25 EST PEEP 5 05/27/2024 1:00 EST PEEP 5 05/27/2024 0:00 EST PEEP 5 05/26/2024 23:00 EST PEEP 5 05/26/2024 22:00 EST PEEP 5 05/26/2024 21:00 EST PEEP 5 05/26/2024 20:31 EST PEEP 5 05/26/2024 19:00 EST PEEP 5 05/26/2024 18:00 EST PEEP 5 05/26/2024 17:00 EST PEEP 5 05/26/2024 16:17 EST PEEP 5 05/26/2024 16:00 EST PEEP 5 05/26/2024 15:00 EST PEEP 5 05/26/2024 14:00 EST PEEP 5 05/26/2024 13:00 EST PEEP 5 05/26/2024 12:55 EST PEEP 5 05/26/2024 12:00 EST PEEP 5 05/26/2024 11:00 EST PEEP 5 05/26/2024 10:45 EST PEEP 5 05/26/2024 10:00 EST PEEP 5 05/26/2024 9:00 EST PEEP 5 05/26/2024 8:00 EST PEEP 5 05/26/2024 7:00 EST PEEP 5 05/26/2024 6:00 EST PEEP 5 05/26/2024 5:00 EST PEEP 5 05/26/2024 4:00 EST PEEP 5 05/26/2024 3:22 EST PEEP 5 05/26/2024 2:00 EST PEEP 5 05/26/2024 1:04 EST PEEP 5 05/26/2024 0:00 EST PEEP 5 05/25/2024 23:00 EST PEEP 5 05/25/2024 22:00 EST PEEP 5 05/25/2024 21:23 EST PEEP 5 05/25/2024 21:00 EST PEEP 5 05/25/2024 20:00 EST PEEP 5 05/25/2024 19:00 EST PEEP 5 05/25/2024 18:00 EST PEEP 5 05/25/2024 17:27 EST PEEP 5 05/25/2024 17:00 EST PEEP 5 05/25/2024 16:00 EST PEEP 5 05/25/2024 15:00 EST PEEP 5 05/25/2024 14:00 EST PEEP 5 05/25/2024 13:00 EST PEEP 5 05/25/2024 12:17 EST PEEP 5 05/25/2024 12:00 EST PEEP 5 05/25/2024 11:00 EST PEEP 5 05/25/2024 10:00 EST PEEP 5 05/25/2024 9:26 EST PEEP 5 05/25/2024 8:00 EST PEEP 5 05/25/2024 7:00 EST PEEP 8 05/25/2024 6:00 EST PEEP 8 05/25/2024 5:00 EST PEEP 8 05/25/2024 4:43 EST PEEP 8 05/25/2024 4:00 EST PEEP 8 05/25/2024 3:00 EST PEEP 8 05/25/2024 2:00 EST PEEP 8 05/25/2024 1:00 EST PEEP 8 05/25/2024 0:00 EST PEEP 8 05/24/2024 23:40 EST PEEP 8 05/24/2024 23:00 EST PEEP 8 05/24/2024 22:19 EST PEEP 8 05/24/2024 22:00 EST PEEP 8 05/24/2024 21:00 EST PEEP 8 05/24/2024 20:36 EST PEEP 8 05/24/2024 20:30 EST PEEP 8 05/24/2024 19:00 EST PEEP 8 05/24/2024 18:54 EST PEEP 8 Rehabilitation Discharge : Rehab Discharge Index 05/28/2024 10:57 EST Comments on treatment indicated MBS needed s/p intubation Full chart review completed Yes Hospital course Hospital course * Rebeca Ogden RN: PERFORM, SIGN, VERIFY Event Display: Progress Note Hospital Authored Date: [id number] Patient: CHRISTEL ARREAGA Age: 43 years Sex: Male : 1980 Associated Diagnoses: None Author: Rebeca Ogden RN Findings Problem Related to Alteration in Neurological : Alteration in Neurological Function/new 05/27/2024 22:00 EST Alteration in Neuro status Related to Seizure Goals & Outcomes, Neurological Lab studies/diagnostic tests within pt specific limits, Pt is safe with transfers & activities, Pt will be discharged without infection, Pt will be hemodynamically stable, Pt will be Neurologically stable, Pt will become pain free with appropriate intervention, Pt will maintain intact skin integrity, Pt will remain free from injury, Pt will resume/maintain ad equate cardiac output, Pt will state importance of adhering to medication regime, Pt/caregiver willreceive psychosocial support as needed, Pt/caregiver will state understanding of rehab plan, Pt/caregiver will state strategies to reduce risk factors, Pt/caregiver will state understanding aspiration precautions, Pt/caregiver will state understanding dietary modifications, Pt/caregiver will state understanding of disease process, Pt/caregiver will state understanding of plan/goals of care, Pt will be free from complications r/t seizure activity, Pt will be seizure controlled, Pt will remain free from injury post seizure activity, Pt will return to baseline after post ictal phase, Pt/caregiver will state understanding of home management Interventions, Neurological Assess/monitor for abnormal posturing, Assess/monitor for gaze pattern/extraocular movements, Assess/monitor for increased Intracranial Pressure, Assess/monitor neurologicstatus, Assess/monitor VS per unit standards & prn, Keep patient's head & body in good alignment, Call/Report variances in assessments to provider, If no bowel movement in 3 days activate bowel regime, [place] alternate means of communication, Maintain HOB at least 30 deg, Maintain normothermia, report temp >101.5 F, Maintain patient safety if unsteady gait, Maintain strict intake & output, Monitor Fluid & Electrolytes, Serum Osmolarity, Monitor for headaches, nausea, vomiting BH Goals/Interventions, Neurological Yes Neurological, Problem Start 05/24/2023 21:00 Reviewed plan with, Neurological Patient Patient Progression, Neurological Pt progressing according to plan . Nursing Data Neurological Data. : Neurological Data. 05/28/2024 20:10 EST Neurological Symptoms History of seizures Level of Consciousness Full Consciousness Orientated to person, place, time Person, Place, Time, Event Facial Symmetry Intact Characteristics of Speech Clear and normal Pupil description, left Regular Pupil description, right Regular Strength LUE 5-Active movement against gravity & full resistance Strength RUE 5-Active movement against gravity & full resistance Strength LLE 5-Active movement against gravity & full resistance Strength RLE 5-Active movement against gravity & full resistance Tone LUE Normal Tone RUE Normal Tone LLE Normal Tone RLE Normal Sensation LUE Intact Sensation RUE Intact Sensation LLE Intact Sensation RLE Intact Movement LUE To command, Spontaneous Movement RUE To command, Spontaneous Movement LLE To command, Spontaneous Movement RLE To command, Spontaneous Gait Steady Neuro WNL except Swallow - Neuro Normal . Evaluation Patient alert and oriented x4. Speech is clear. Calm and cooperative with all nursing cares. Takes pills whole with water with no issues. Face symmetrical. No facial droops or tongue deviation noted.Denies headache/dizziness/double or blurred vision/chest pain or difficulty breathing/numbness or tingling. PERLL. Visual campbell intact. LS clear throughout. No cough/SOB noted. +BS in all 4 quads. Continent for both bowel and bladder. COREA. Hand plywood and veneer repairer equal in both hands. Muscle strength BUE+BLE 5/5. +PP. Ambulate with 1 assist/SB. SZ precautions maintained. No sz activity noted. Bed in lowest position+wheels locked. Bed alarm in place and functioning. Call morales within reach. Will continue to monitor and document any changes. See CIS for full assessment.. * Alberto CAMPOS, Pierre: VERIFY, PERFORM, SIGN Event Display: Progress Note Hospital Authored Date: [id number] Patient: CHRISTEL ARREAGA Age: 43 years Sex: Male : 1980 Associated Diagnoses: None Author: Pierre Dominguez RN Findings Narrative/Incidental Pt feeling well today. Eating, voiding, no BM, using IS, ambulating. Reports tooth pain, but otherwise no pain. . Discharge Information Pulmonary Rehab Discharge : Pulmonary Rehab Discharge Status 05/27/2024 8:36 EST PEEP 5 05/27/2024 7:00 EST PEEP 5 05/27/2024 5:00 EST PEEP 5 05/27/2024 4:00 EST PEEP 5 05/27/2024 3:00 EST PEEP 5 05/27/2024 2:25 EST PEEP 5 05/27/2024 1:00 EST PEEP 5 05/27/2024 0:00 EST PEEP 5 05/26/2024 23:00 EST PEEP 5 05/26/2024 22:00 EST PEEP 5 05/26/2024 21:00 EST PEEP 5 05/26/2024 20:31 EST PEEP 5 05/26/2024 19:00 EST PEEP 5 05/26/2024 18:00 EST PEEP 5 05/26/2024 17:00 EST PEEP 5 05/26/2024 16:17 EST PEEP 5 05/26/2024 16:00 EST PEEP 5 05/26/2024 15:00 EST PEEP 5 05/26/2024 14:00 EST PEEP 5 05/26/2024 13:00 EST PEEP 5 05/26/2024 12:55 EST PEEP 5 05/26/2024 12:00 EST PEEP 5 05/26/2024 11:00 EST PEEP 5 05/26/2024 10:45 EST PEEP 5 05/26/2024 10:00 EST PEEP 5 05/26/2024 9:00 EST PEEP 5 05/26/2024 8:00 EST PEEP 5 05/26/2024 7:00 EST PEEP 5 05/26/2024 6:00 EST PEEP 5 05/26/2024 5:00 EST PEEP 5 05/26/2024 4:00 EST PEEP 5 05/26/2024 3:22 EST PEEP 5 05/26/2024 2:00 EST PEEP 5 05/26/2024 1:04 EST PEEP 5 05/26/2024 0:00 EST PEEP 5 05/25/2024 23:00 EST PEEP 5 05/25/2024 22:00 EST PEEP 5 05/25/2024 21:23 EST PEEP 5 05/25/2024 21:00 EST PEEP 5 05/25/2024 20:00 EST PEEP 5 05/25/2024 19:00 EST PEEP 5 05/25/2024 18:00 EST PEEP 5 05/25/2024 17:27 EST PEEP 5 05/25/2024 17:00 EST PEEP 5 05/25/2024 16:00 EST PEEP 5 05/25/2024 15:00 EST PEEP 5 05/25/2024 14:00 EST PEEP 5 05/25/2024 13:00 EST PEEP 5 05/25/2024 12:17 EST PEEP 5 05/25/2024 12:00 EST PEEP 5 05/25/2024 11:00 EST PEEP 5 05/25/2024 10:00 EST PEEP 5 05/25/2024 9:26 EST PEEP 5 05/25/2024 8:00 EST PEEP 5 05/25/2024 7:00 EST PEEP 8 05/25/2024 6:00 EST PEEP 8 05/25/2024 5:00 EST PEEP 8 05/25/2024 4:43 EST PEEP 8 05/25/2024 4:00 EST PEEP 8 05/25/2024 3:00 EST PEEP 8 05/25/2024 2:00 EST PEEP 8 05/25/2024 1:00 EST PEEP 8 05/25/2024 0:00 EST PEEP 8 05/24/2024 23:40 EST PEEP 8 05/24/2024 23:00 EST PEEP 8 05/24/2024 22:19 EST PEEP 8 05/24/2024 22:00 EST PEEP 8 05/24/2024 21:00 EST PEEP 8 05/24/2024 20:36 EST PEEP 8 05/24/2024 20:30 EST PEEP 8 05/24/2024 19:00 EST PEEP 8 05/24/2024 18:54 EST PEEP 8 Rehabilitation Discharge : Rehab Discharge Index 05/28/2024 10:57 EST Comments on treatment indicated MBS needed s/p intubation Full chart review completed Yes Hospital course Hospital course Consult note * Ernestina TOVAR, Corby L: PERFORM Event Display: Consultation Note Authored Date: [id number] Patient: ??TRAUMA, [id number] ? Age:??89 Years?Sex:??Male?:???? History of Present Illness Patient is a??43-year-old male with history of seizure disorder??followed at the [facility] by ??[facility]la, depression, anxiety, bipolar disorder??(on??lamotrigine), prior??suicide attempts??by overdosing,??alcohol use disorder, tobacco and marijuana use disorder, hypertension??who was admitted??on May 24, 2024??following a fall??and was??noted to be in status epilepticus.? There is concern with regard to medication??compliance??as per the ??as patient had elevated??systolic??blood pressures over 200??recently as well as??more prolonged seizures.?? Patient's does note he did not take any of his??antiepileptic medications on the day of admission.?? When he waslast seen here in??August 2023??he was on lamotrigine 100 mg twice daily for??bipolar and possibly seizures as well.?? While he had??previously been on topiramate??it appears that??he had??stopped this on his own??secondary to side effects.?? Reviewing additional notes it appears he left AMA from thatadmission??and will plan was to restart??lamotrigine??no notation was made of restarting topiramate. ?? Thus far patient underwent CT head??that showed no acute abnormality.?? Toxicology screen came backnegative.?? Labs with leukocytosis, mild??hypermagnesemia,??hypophosphatemia??and mild??hypercalcemia.?? Patient has had low-grade temperatures to 100.5. ?? CT head 05/24/2024??No acute abnormality of the head or cervical spine.?Ground-glass and tree-in-bud opacities in the included RIGHT lung apex. ?? Review of Systems Unable to obtain due to patient factors Physical Exam Vitals & Measurements T:??100.4?F?? HR:??127??(Monitored)?? RR:??35?? BP:??138/104?? SpO2:??92%?? WT:??116.0??kg?? Constitutional: Intubated and sedated ?? Neurologic Examination ?? Mental Status: Intubated and sedated ?? Cranial Nerves: Pupils equal and round. No RAPD.? Motor: No withdrawal to pain ?? Reflexes: trace??at bilateral biceps, triceps, brachioradialis, patella and ankle. Plantar responseflexor bilaterally ?? Sensory:??Intubated and sedated ?? Coordination: Intubated sedated ?? Gait: Deferred ?? Assessment/Plan Assessment:??43-year-old male with history of??seizure disorder??on lamotrigine for??that??as well as bipolar??disorder??who presented after being found by his at home??seizing. ??He was subsequently??brought to the emergency room??where he was loaded with levetiracetam, intubated and started on propofol??secondary to concerns of status epilepticus.? Status epilepticus-while this would appear to be secondary to noncompliance with medications,??alternative explanations??include??medication overdose (this has been an issue in the past)??or??intracranial pathology??related to??uncontrolled??blood pressures??such as posterior reversible??encephalopathy syndrome.??Infection is lower in differential.??Would recommend obtaining a complete list of current medications the patient is on and??performing??levels??when possible on such medications.??I note that a lamotrigine level has been drawn and is pending.??Leukocytosis likely secondary to??seizure??but would continue to trend. ?? Video EEG has been started??and at the time of this note??no epileptiform or seizure activity has been noted on this study.??Diffuse slowing and superimposed fast activity is present consistent with a medication effect.??Following cessation of video-EEG monitoring??I would recommend MRI of the brain with and without contrast??to further evaluate for intracranial pathology. ?? For now would continue on lamotrigine 100 mg twice daily.?? There appears to be no??evidence that he is currently on??topiramate??but not unreasonable to continue??until this can be clarified. ?? Problem List/Past Medical History Ongoing No qualifying data Procedure/Surgical History No qualifying data available. Home Medications Alprazolam: 1 mg = 1 tablet, By Mouth, 3 times a day, PRN (for anxiety) Gabapentin: 200 mg = 2 capsule, By Mouth, 2 times a day Lamotrigine: 100 mg = 1 tablet, By Mouth, Daily Lisinopril: 20 mg = 1 tablet, By Mouth, Daily lurasidone: 60 mg = 1 tablet, By Mouth, Daily Nicotine: 2 mg = 1 each, Chew, Every 2 hours, PRN (as needed for smoking cessation) Nicotine: 1 patch, Topically, Daily Prazosin: 1 mg = 1 capsule, By Mouth, 2 times a day Topiramate: 100 mg = 1 tablet, By Mouth, 2 times a day Allergies Latex penicillin Family History No family history recorded. Lab Results Test Name Test Result Date/Time WBC 16.0 k/mm3 05/25/2024 02:28 EST RBC 5.44 m/mm3 05/25/2024 02:28 EST Hgb 16.8 Gm/dL 05/25/2024 02:28 EST Hct 48.4 % 05/25/2024 02:28 EST MCV 89.0 femtoliters 05/25/2024 02:28 EST MCH 30.9 pg 05/25/2024 02:28 EST MCHC 34.7 Gm/dL 05/25/2024 02:28 EST Platelet Count 243 k/mm3 05/25/2024 02:28 EST RDW-SD 46.1 femtoliters 05/25/2024 02:28 EST MPV 11.3 femtoliters 05/25/2024 02:28 EST Nucleated RBC (Automated) 0.0 #/100 WBC'S 05/25/2024 02:28 EST Abs. NRBC 0.0 k/mm3 05/25/2024 02:28 EST Sodium 139 mmol/L 05/25/2024 03:36 EST Potassium 4.9 mmol/L 05/25/2024 03:36 EST Chloride 99 mmol/L 05/25/2024 03:36 EST Bicarbonate Level 23 mmol/L 05/25/2024 03:36 EST Anion Gap 17 mmol/L 05/25/2024 03:36 EST Glucose Level 171 mg/dL 05/25/2024 03:36 EST BUN 16 mg/dL 05/25/2024 03:36 EST Creatinine-Blood 1.11 mg/dL 05/25/2024 03:36 EST Estimated GFR Creatinine 51 ML/MIN/1.73 M2 05/25/2024 03:36 EST Calcium 10.3 mg/dL 05/25/2024 03:36 EST Phosphorus 2.0 mg/dL 05/25/2024 03:36 EST Magnesium 2.4 mg/dL 05/25/2024 03:36 EST Protein, Total 8.7 Gm/dL 05/25/2024 03:36 EST Albumin 4.6 Gm/dL 05/25/2024 03:36 EST AG Ratio 1.1 05/25/2024 03:36 EST Alkaline Phosphatase 100 units/L 05/25/2024 03:36 EST AST (SGOT) 36 units/L 05/25/2024 03:36 EST ALT (SGPT) 33 units/L 05/25/2024 03:36 EST Bilirubin, Total 0.3 mg/dL 05/25/2024 03:36 EST Note * Yenni Carbajal: PERFORM Event Display: Discharge/Transfer Note Hospital Authored Date: Nursing Discharge Note Entered On: 05/29/2024 19:05 EST Performed On: 05/29/2024 16:30 EST by Yenni Carbajal Nursing Discharge Note 2 Discharge Time : 05/29/2024 16:30 EST Discharge Level of Care at Discharge : Homehealth/VNA Discharge VNA/Hospice/Home Care(v001) : [facility] Patient Left Unit Via : Wheelchair Patient Accompanied Off Unit with : Significant other, Responsible adult DC Instructions Provided & Signed by Pt : Yes Patient Understands D/C Instructions : Yes Patient Instructions Discharge Signed : Yes Discharge Comments : Went over D/C paperwork with pt. and significant other, D/C paperwork understood by pt. signed, addressed all concerns, IV removed, catheter intact. Did Pt have Specialty Bed or Wound Vac : No Yenni Carbajal - 05/29/2024 19:03 EST * Melissa Tam MD: PERFORM Event Display: Discharge/Transfer Note Hospital Authored Date: Patient: ??CHRISTEL ARREAGA ? Age:??43 Years?Sex:??Male?:??1980?? Patient Information Discharge Location: A Primary Care Physician: Not on Staff, PCP Admit Date/Time: 05/24/2024 20:11 Discharge Disposition Discharge Disposition: Home with Home Health Discharge Diagnosis Mood disorder (F39) PTSD (post-traumatic stress disorder) (F43.10) Aspiration pneumonia (J69.0) Acute kidney injury (N17.9) Fall (W19.XXXA) Status epilepticus (G40.901) Seizure (R56.9) _ Discharge Medications Alprazolam (ALPRAZolam 1 mg oral tablet)?1?tab(s)?1?Milligram?By Mouth?3 times a day?as needed?for anxiety Durable Medical Equipment (Ambulatory BP Monitor and Cuff)?See Instructions?Please size to patients arm. Use daily to check BP.ICD10: I10Fax to L+C Folic Acid (folic acid 1 mg oral tablet)?1?Milligram?By Mouth?Daily?for 30?Days Gabapentin (gabapentin 100 mg oral capsule)?200?Milligram?2?capsule?By Mouth?2 times a day Lacosamide (lacosamide 100 mg oral tablet)?1?tab(s)?100?Milligram?By Mouth?2 times a day?for 30?Days Lidocaine Topical (lidocaine 4% mucous membrane solution)?See Instructions?5mlSwish and Spit Every 4 hours Lisinopril (lisinopril 20 mg oral tablet)?20?Milligram?1?tablet?By Mouth?Daily lurasidone (lurasidone 60 mg oral tablet)?TAKE 1 TABLET BY MOUTH DAILY WITH FOOD Methadone (methadone 10 mg/5 mL oral solution)?140?Milligram?By Mouth?Daily?last dosed 05/23/24 @ 9:58 a.m. confirmed with [facility] [employer] Multivitamin (multivitamin Therapeutic Multiple Vitamins oral tablet)?1?tab(s)?Orogastric Tube?Daily?for 30?Days Nicotine (nicotine 21 mg/24 hr transdermal film, extended release)?1?patch(es)?Topically?Daily Nicotine (nicotine 2 mg oral transmucosal lozenge)?1?lozenge(s)?2?Milligram?By Mouth?Every 2 hours Nicotine (Nicotine 2 mg gum)?1?Each?2?Milligram?Chew?Every 2 hours?as needed?as needed for smoking cessation Prazosin (prazosin 1 mg oral capsule)?1?Milligram?1?capsule?TAKE 1 CAPSULE BY MOUTH EVERY MORNING AND 2 CAPSULES EVERY EVENING Thiamine (thiamine 100 mg oral tablet)?100?Milligram?1?tablet?By Mouth?Daily?for 30?Days Topiramate (topiramate 100 mg oral tablet)?1?tab(s)?100?Milligram?By Mouth?2 times a day?for 30?Days Medications Started As per patient instruction Medications Discontinued As per patient instruction Doses Changed As per patient instruction Objective 43 years old male with medical history of HTN, seizures, AUD, prior SI, migraines, PTSD, anxiety,??mood disorder??and bilateral testicular torsion s/p repair BIBA on 1/25 as a category 1 trauma aftera fall from standing height requiring intubation for unresponsiveness and admitted to MICU w/ status epilepticus. Now s/p extubation on 05/27 with course c/b JENNIFER (improving) and hallucinations c/f alcohol withdrawal. Now improved. ? Status epilepticus, resolved AUD, risk of withdrawal PTSD, Mood disorder Presented??w/ seizure per + fall from bed. S/p Keppra load in ED (recus paper chart). Seizure likely 2/2 PRES (per neurology) vs. medication noncompliance/untreated seizures (per and last PCP appt , ONLY taking topiramate for seizures, and misses doses. NOT taking lamotrigine or gabapentin ), vs. intentional overdose,??vs. element of withdrawal (AUD, benzos). Initially on Versed ggt for seizure, but d/c'd as likely suppressing seizure activity on EEG.??Also initially on lamotrigine forseizure, but d/c'd for risk of SJS with need for slow up-titration. vEEG without evidence of seizure. Throughout MICU course, required??prop, precedex, and ketamine??ggts for sedation. Also required scheduled olanzapine Q6H for agitation.?? Now improved. Continue home methadone 140mg daily Continue home topiramate 100mg BID;??Continue Vimpat 100mg BID Continue home alprazolam TID Home prazosin for anxiety and home??Latuda??for bipolar Continue MTV, thiamine, FA. Follow up with PCP as outpatient. Asper [place] law he cannot drive x?? 6 months Outpatient seizure clinic follow up. ?? Hypertensive Emergency, resolved Tachycardia, resolved Hypertriglyceridemia reports pt with SBP 220s at home last week, and patient stated he had??a brief episode of chest pain. Concerning for PRES w/ above sx. However, BPs improved since arrival on prop, versed, precedex??(peak 150s/110s). Initial trop elevated at 56, repeat downtrending to 29. EKG w/o evidence of ischemia. Tachycardia possibly 2/2 some kind of withdrawal, now resolved. Continue home antihypertensive. Follow up with PCP. ? Intubated for airway protection, resolved Patient was intubated due??to unresponsiveness??due to??status epilepticus. R-sided pneumonitis on CT.?? Initial tachypnea to 30s w/ intermittent vent dyssynchrony likely 2/2 under-sedation. No evidence of pneumothorax or new intra-pulm pathology. Extubated successfully on 05/27. Continuous O2 monitor ? SIRS, resolved Aspiration pneumonitis with superimposed PNA Tachycardia, leukocytosis, and fever to 100.5F on admission, however suspect that leukocytosis is reactive in setting of seizure. No obvious source of infx at this time, so fever possibly non-infectious. However, will continue to cover for PNA considering pneumonitis on CXR and possible aspiration event. ET aspirate prelim w/ normal checo. Completed 5 days of Ceftriaxone. F/u??ET aspirate culture F/u 05/25 BCx-- NGTD. ? Diarrhea, stable Resolved now. Regular diet ? Lactic acidosis, resolved Acute kidney injury Likely lactic acidosis 2/2 seizures,??improving s/p seizure. Risk of rhabdomyolysis w/ initial CK 630, but downtrended. JENNIFER unclear cause, possibly prerenal 2/2transient shock overnight on 05/26 requiring few hrs of pressors. Now improved, continue to monitor ? Hyperglycemia, resolved Initially hyperglycemic to mid-200s on admission likely due to??seizure/acute illness, now resolved. A1C 5.5 ? Measurements?? Weight: 117.1 kg (05/27/24) Dry Weight: 119 kg (05/24/24) ? Vital Signs?? Temperature: 98.3 DegF (05/29/24 11:00:00) Temperature Route: Oral (05/29/24 11:00:00) Pulse Rate:??102 bpm??High (05/29/24 11:00:00) Respiratory Rate: 18 br/min (05/29/24 11:00:00) Systolic Blood Pressure: 128 mm Hg (05/29/24 11:00:00) Diastolic Blood Pressure: 83 mm Hg (05/29/24 11:00:00) Blood pressure sites: Arm, right (05/29/24 11:00:00) Mean Arterial Pressure: 95 mm Hg (05/29/24 04:29:00) Pulse Pressure: 61 mm Hg (05/29/24 04:29:00) Oxygen Saturation: 95 % (05/29/24 11:00:00) Mode of Delivery (Oxygen): Room air (05/29/24 11:00:00) Early Warning Score: 3 (05/29/24 12:57:36) ? . Physical Exam Constitutional: Alert, in no acute distress. Mental Status: Oriented to person, place and time. Head: Normocephalic. Eyes: Pupils are equal, round and reactive to light. Extraocular muscles intact. Ear, Nose and Throat: Oropharynx clear, mucous membranes moist. ??Has??small tongue bite in the right bottom of tongue Neck: Supple, Full range of motion. Respiratory: Clear to auscultation and percussion. No wheezing, rales or rhonchi. Cardiovascular: S1 S2 regular. No murmurs, rubs or gallops. Gastrointestinal: Abdomen soft, non-tender, non-distended. Normal bowel sounds. ?? Genitourinary: No costovertebral angle tenderness.?? Neurologic: Cranial nerves II-XII grossly intact. No focal neurological deficits.?? Skin: No rashes or lesions. No petechiae or purpura. Musculoskeletal: No cyanosis or clubbing. No gross deformities. Normal range of motion. _ [facility]ants MICU Trauma Neurology Pending Results XR Modified Barium Swallow W/ Speech RAD ordered on 05/30/2024 Patient Education Titles [employer] Patient Education - Lacosamide?? [employer] Patient Education - Folic Acid?? [employer] Patient Education - Safety During a Seizure?? [employer] Patient Education - Treatment for Aspiration from Dysphagia?? Follow-Up Appointments Added Follow Up ?Time Frame ?Comments Lauren Hobbs MD?2 to 5 weeks Not on Staff, PCP?5 to 7 days Patient Instructions You will go home with the following NEW medications: Lacosamide (lacosamide 100 mg oral tablet)?1?tab(s)?100?Milligram?By Mouth?2 times a day?for 30?Days Lidocaine Topical (lidocaine 4% mucous membrane solution)?See Instructions?5mlSwish and Spit Every 4 hours ?? The following medications were CHANGED : ??None ? The following medications were?? STOPPED: ??Lamotrigine ? Activity changes: Per [place] state law, no driving until 6 months seizure free.?? Avoid any activity that put you or others at risk should you lose consciousness.?? I??have sent prescription for 1 month, please follow up with primary care provider for further refill.?? Please follow up with primary care doctor if your tongue pain persists.?? Please follow up with primary care doctor to arrange modified barium swallow as outpatient.? Who to follow up with after being discharged from the hospital: -??Please follow up at your primary??care doctor's office in 1-2 weeks. Please make appointment with the clinic. - Please follow up with neurologist as outpatient. Please call office to schedule appointment. ?? Reasons to immediately return to the emergency room or call 911: - You pass out or faint. - You develop any acute weakness or numbness in any part of the body. - You develop any acute??speech difficulty, swallowing problem,??vision problem.? - You have any other concerns that you think require emergency management. Post Discharge Care Diet: ??Regular Diet ?? Discharge ?05/29/24 15:23:00 EST ?Order Comment:?? Discharge Prescriptions ?ePrescribed, 05/29/24 15:23:00 EST ?Order Comment:?? Home Health Face to Face *Denotes mandatory campbell ?? *I certify that this patient is under my care and that I or an allowed non- physician working with me had a face to face encounter with the patient on this date:??05/29/2024 15:20 ?? *The encounter with the patient was in whole, or in part, for the following medical condition, which is the primary diagnosis(es) for home health care:??Mood disorder (F39) PTSD (post-traumatic stress disorder) (F43.10) Aspiration pneumonia (J69.0) Acute kidney injury (N17.9) Fall (W19.XXXA) Status epilepticus (G40.901) Seizure (R56.9) ?? *Select the indications for the discipline/s that are being arranged for this patient. Nursing (select all that apply): [_] None [_x] Medication management (reconciliation, teaching)?? [_] Chronic disease management?? [_] Wound care and treatment?? [_] Home safety evaluation [_] Administer SQ/IM/IV medications?? [_] Cath care?? [_] Drain care?? [_] Trach or GT care?? Other _ Occupation Therapy (select all that apply): [_] None [_] ADL Management [_] Fall prevention training [_] Energy conservation [_] Cognitive training Other _ Physical Therapy (select all that apply): [_] None [_] Functional mobility training [_] Home exercise program to strengthen [_] Increase ROM?? [_] Falls prevention training [_] Home maintenance program for chronic disease Other _ Speech Therapy (select all that apply): [_] None [_] Swallow evaluation and training [_] Speech and language training [_] Cognitive training to process, organize, and/or recall information Other _ ? *Homebound due to (select all that apply): [x_] Inability to leave home without assistance/supervision [_x] Inability to ambulate without assistance [_] Pain [_] Decreased strength and endurance [_] Unsteady gait [_] Severe SOB and fatigue [_] Impaired transfers [_] Inability to negotiate stairs [_] Limited weight bearing [_] Mental status change? *Physician Signature:??Melissa Tam MD ?? *By signing this, I certify that I have personally evaluated the patient and agree with the findings and recommendations as documented above. ? Results Discharge Labs BACTERIOLOGY CF Culture Results Preliminary report (Abnormal)?? 05/25/2024 11:40 Blood Culture Results Preliminary report ()?? 05/25/2024 11:54 Blood Culture Specimen Source BLOOD ()?? 05/25/2024 11:54 Blood Culture Isolate 1 Comment ()?? 05/25/2024 11:54 Gram Stain Isolate 1 Comment ()?? 05/25/2024 11:40 Gram Stain Isolate 2 Comment ()?? 05/25/2024 11:40 Gram Stain Isolate 3 Comment ()?? 05/25/2024 11:40 Gram Stain Result Final report ()?? 05/25/2024 11:40 Sputum Culture Specimen Source ENDOTRACHEAL ASPIRATE ()?? 05/25/2024 11:40 CF Culture Source ENDOTRACHEAL ASPIRATE ()?? 05/25/2024 11:40 Lower Respiratory Culture Isolate 1 Valentina dubliniensis (Abnormal)?? 05/25/2024 11:40 Lower Respiratory Culture Isolate 2 Comment ()?? 05/25/2024 11:40 Sputum Cult Epithelial Cells None seen ()?? 05/25/2024 11:40 Gram Stain Evaluation Comment ()?? 05/25/2024 11:40 Sputum Gram Stain Result 1 Comment ()?? 05/25/2024 11:40 Sputum Gram Stain Result 2 Comment ()?? 05/25/2024 11:40 Sputum Culture Isolate 1 Comment ()?? 05/25/2024 11:40 White Blood Cells Many ()?? 05/25/2024 11:40 Blood Cult 2 Results Preliminary report ()?? 05/25/2024 11:54 Blood Culture 2 Specimen Source BLOOD ()?? 05/25/2024 11:54 Blood Culture 2 Isolate 1 Comment ()?? 05/25/2024 11:54 Sputum Culture Status Final report ()?? 05/25/2024 11:40 ?? BLOOD BANK Blood Type A Positive ()?? 05/24/2024 17:58 Antibody Screen Negative ()?? 05/24/2024 17:58 ?? BLOOD COUNT & DIFF WBC 6.2 k/mm3 ()?? 05/29/2024 07:21 RBC 3.66 m/mm3 (Low)?? 05/29/2024 07:21 Hgb 11.1 Gm/dL (Low)?? 05/29/2024 07:21 Hct 32.9 % (Low)?? 05/29/2024 07:21 MCV 89.9 femtoliters ()?? 05/29/2024 07:21 MCH 30.3 pg ()?? 05/29/2024 07:21 MCHC 33.7 Gm/dL ()?? 05/29/2024 07:21 Platelet Count 174 k/mm3 ()?? 05/29/2024 07:21 RDW-SD 45.8 femtoliters ()?? 05/29/2024 07:21 MPV 9.8 femtoliters ()?? 05/29/2024 07:21 Nucleated RBC (Automated) 0.0 #/100 WBC'S ()?? 05/29/2024 07:21 Abs. NRBC 0.0 k/mm3 ()?? 05/29/2024 07:21 Abs. Neut 9.4 k/mm3 (High)?? 05/26/2024 06:00 Abs. Lymph 1.9 k/mm3 ()?? 05/26/2024 06:00 Abs. [place] 1.0 k/mm3 ()?? 05/26/2024 06:00 Abs. Eo 0.4 k/mm3 ()?? 05/26/2024 06:00 Abs. Baso 0.1 k/mm3 ()?? 05/26/2024 06:00 Neut % 73.4 % ()?? 05/26/2024 06:00 Lymph % 15.0 % ()?? 05/26/2024 06:00 [place] % 7.6 % ()?? 05/26/2024 06:00 Eos % 3.0 % ()?? 05/26/2024 06:00 Baso % 0.5 % ()?? 05/26/2024 06:00 Hemoglobin (POC) POC Cartridge 15.0 Gm/dL ()?? 05/26/2024 01:43 Hematocrit (POC) POC Cartridge 44 % ()?? 05/26/2024 01:43 Imm Gran 0.5 % ()?? 05/26/2024 06:00 Abs. Imm Gran 0.1 k/mm3 ()?? 05/26/2024 06:00 ?? BLOOD GAS pH (POC) POC Cartridge 7.46 (High)?? 05/26/2024 01:43 pCO2 (POC) POC Cartridge 36.0 mm Hg ()?? 05/26/2024 01:43 pO2 (POC) POC Cartridge 84 mm Hg ()?? 05/26/2024 01:43 Estimated Bicarbonate (POC) POC Cart 25.4 mmol/L ()?? 05/26/2024 01:43 % O2 Sat Arterial (POC) POC Cartridge 97 % ()?? 05/26/2024 01:43 FIO2 (POC) POC Cartridge 70 % ()?? 05/24/2024 22:10 pH Venous (POC) POC Cartridge 7.35 ()?? 05/24/2024 18:00 pCO2 Venous (POC) POC Cartridge 45.3 mm Hg ()?? 05/24/2024 18:00 pO2 Venous (POC) POC Cartridge 23 mm Hg (Low)?? 05/24/2024 18:00 Est Bicarbonate (POC) POC Cartridge 25.2 mmol/L ()?? 05/24/2024 18:00 % O2 Sat Venous (POC) POC Cartridge 36 ()?? 05/24/2024 18:00 Base Excess (POC) POC Cartridge 1 ()?? 05/26/2024 01:43 pH 7.40 ()?? 05/25/2024 02:16 pCO2 39 mm Hg ()?? 05/25/2024 02:16 pO2 110 mm Hg (High)?? 05/25/2024 02:16 Bicarbonate, Estimated 24 mmol/L ()?? 05/25/2024 02:16 Specimen Type - Blood Gas ARTERIAL ()?? 05/26/2024 01:43 Percent O2 (FIO2) 40 ()?? 05/25/2024 02:16 ?? CARDIAC CK, Total 295 units/L ()?? 05/26/2024 06:00 High Sensitivity Troponin (HSTnT) 29 ng/L (High)?? 05/25/2024 11:54 ?? CHEM GENERAL Sodium 136 mmol/L ()?? 05/29/2024 07:21 Potassium 3.8 mmol/L ()?? 05/29/2024 07:21 Chloride 102 mmol/L ()?? 05/29/2024 07:21 Bicarbonate Level 19 mmol/L (Low)?? 05/29/2024 07:21 Anion Gap 15 mmol/L ()?? 05/29/2024 07:21 Sodium (POC) POC Cartridge 137 mmol/L ()?? 05/26/2024 01:43 Potassium (POC) POC Cartridge 3.9 mmol/L ()?? 05/26/2024 01:43 Glucose Level 104 mg/dL (High)?? 05/29/2024 07:21 Glucose (POC) POC Cartridge 150 (High)?? 05/26/2024 01:43 Glucose, POC 103 mg/dL (High)?? 05/29/2024 11:48 Hemoglobin A1C (Monitoring) 5.5 % ()?? 05/29/2024 07:21 BUN 9 mg/dL ()?? 05/29/2024 07:21 Creatinine-Blood 0.98 mg/dL ()?? 05/29/2024 07:21 Estimated GFR Creatinine 98 ML/MIN/1.73 M2 ()?? 05/29/2024 07:21 Calcium 9.2 mg/dL ()?? 05/29/2024 07:21 Calcium, Ionized pH Corrected 1.26 mmol/L ()?? 05/27/2024 04:06 Ionized Calcium (POC) POC Cartridge 1.13 mmol/L ()?? 05/26/2024 01:43 Phosphorus 3.2 mg/dL ()?? 05/29/2024 07:21 Magnesium 2.2 mg/dL ()?? 05/29/2024 07:21 Protein, Total 7.2 Gm/dL ()?? 05/29/2024 07:21 Albumin 3.6 Gm/dL ()?? 05/29/2024 07:21 AG Ratio 1.0 ()?? 05/29/2024 07:21 Alkaline Phosphatase 132 units/L (High)?? 05/29/2024 07:21 Amylase 230 units/L (High)?? 05/24/2024 18:02 AST (SGOT) 94 units/L (High)?? 05/29/2024 07:21 ALT (SGPT) 104 units/L (High)?? 05/29/2024 07:21 Bilirubin, Total 0.7 mg/dL ()?? 05/29/2024 07:21 Lactate 3.3 mmol/L (High)?? 05/24/2024 22:23 ?? COAG INR 1.0 ()?? 05/24/2024 18:05 Protime (PT) 10.2 seconds ()?? 05/24/2024 18:05 APTT 25.3 seconds ()?? 05/24/2024 18:05 ? HEME OTHER Hold Blue Top SPECIMEN DISCARDED AFTER 4 HOURS. ()?? 05/26/2024 06:00 ? LIPID STUDIES Triglycerides 938 mg/dL (High)?? 05/26/2024 06:00 ? MISC. CHEMISTRY Hold Green Top SPECIMEN DISCARDED AFTER 1 WEEK ()?? 05/26/2024 06:00 Hold Red Top SPECIMEN DISCARDED AFTER 1 WEEK ()?? 05/24/2024 22:23 Hold Gel Top SPECIMEN DISCARDED AFTER 1 WEEK ()?? 05/26/2024 06:00 ? STOOL STUDIES GI PCR, Campylobacter NEGATIVE (N)?? 05/25/2024 11:40 GI PCR, Plesiomonas shigelloides NEGATIVE (N)?? 05/25/2024 11:40 GI PCR, Salmonella NEGATIVE (N)?? 05/25/2024 11:40 GI PCR, Vibrio NEGATIVE (N)?? 05/25/2024 11:40 GI PCR, Vibrio cholerae NEGATIVE (N)?? 05/25/2024 11:40 GI PCR, Yersinia enterocolitica NEGATIVE (N)?? 05/25/2024 11:40 GI PCR, Enteroaggregative E coli NEGATIVE (N)?? 05/25/2024 11:40 GI PCR, Enteropathogenic E coli NEGATIVE (N)?? 05/25/2024 11:40 GI PCR, Enterotoxigenic E coli NEGATIVE (N)?? 05/25/2024 11:40 GI PCR, Ppzns-ezsdm-wdnmoyinp E coli NEGATIVE (N)?? 05/25/2024 11:40 GI PCR, Shigella/Enteroinvasive E coli NEGATIVE (N)?? 05/25/2024 11:40 GI PCR, Cryptosporidium NEGATIVE (N)?? 05/25/2024 11:40 GI PCR, Cyclospora cayetanensis NEGATIVE (N)?? 05/25/2024 11:40 GI PCR, Entamoeba histolytica NEGATIVE (N)?? 05/25/2024 11:40 GI PCR, Giardia lamblia NEGATIVE (N)?? 05/25/2024 11:40 GI PCR, Adenovirus F 40/41 NEGATIVE (N)?? 05/25/2024 11:40 GI PCR, Astrovirus NEGATIVE (N)?? 05/25/2024 11:40 GI PCR, Norovirus GI/GII NEGATIVE (N)?? 05/25/2024 11:40 GI PCR, Rotavirus A NEGATIVE (N)?? 05/25/2024 11:40 GI PCR, Sapovirus NEGATIVE (N)?? 05/25/2024 11:40 ?? TOXICOLOGY/TDM Ethanol, Serum or Plasma NONE DETECTED mg/dL ()?? 05/24/2024 18:02 Salicylate Level <0.3 mg/dL (Low)?? 05/24/2024 18:02 Barbiturate Screen, Urine NONE DETECTED ()?? 05/24/2024 20:00 Cannabinoid Screen, Urine POSITIVE (Abnormal)?? 05/24/2024 20:00 Cocaine Metabolite Screen, Urine NONE DETECTED ()?? 05/24/2024 20:00 Benzodiazepine Screen, Urine POSITIVE (Abnormal)?? 05/24/2024 20:00 Amphetamine Screen, Urine NONE DETECTED ()?? 05/24/2024 20:00 Opiate Screen, Urine NONE DETECTED ()?? 05/24/2024 20:00 Acetaminophen Level <5 mg/L (Low)?? 05/24/2024 18:02 Lamotrigine Level <1.0 (Low)?? 05/24/2024 18:05 Topiramate Level <1.5 (Low)?? 05/24/2024 22:23 ? VIROLOGY COVID-19 by RT-PCR NEGATIVE ()?? 05/24/2024 18:00 ? Microbiology ?? Blood Culture 2 Results?? Completed?? Source: Blood Body Site: ?? Collected Dt/Tm: 05/25/2024 11:54 Last Updated Dt/Tm: 05/26/2024 09:22 ?? Blood Culture Result?? Completed?? Source: Blood Body Site: ?? Collected Dt/Tm: 05/25/2024 11:54 Last Updated Dt/Tm: 05/26/2024 09:22 ?? Gram Smear Result?? Completed?? Source: ETA Body Site: ?? Collected Dt/Tm: 05/25/2024 11:40 Last Updated Dt/Tm: 05/25/2024 21:05 ?? Sputum Culture?? Completed?? Source: ETA Body Site: ?? Collected Dt/Tm: 05/25/2024 11:40 Last Updated Dt/Tm: 05/26/2024 07:06 ?? Lower Resp Culture Result?? Completed?? Source: ETA Body Site: ?? Collected Dt/Tm: 05/25/2024 11:40 Last Updated Dt/Tm: 05/26/2024 07:07 ?? Sputum/Deep Throat Cult (CF pts) w/Gram?? Completed?? Source: Endotracheal Aspirate Body Site: ?? Collected Dt/Tm: 05/25/2024 11:38 Last Updated Dt/Tm: 05/26/2024 07:06 ?? Sputum, Gram Smear w/Culture Rfx?? Completed?? Source: Endotracheal Aspirate Body Site: ?? Collected Dt/Tm: 05/25/2024 11:38 Last Updated Dt/Tm: 05/25/2024 23:05 ?? GI Profile, Stool, PCR?? Completed?? Source: Stool Body Site: ?? Collected Dt/Tm: 05/25/2024 11:38 Last Updated Dt/Tm: 05/25/2024 14:40 ?? Blood Culture #2?? Completed?? Source: Blood Body Site: ?? Collected Dt/Tm: 05/25/2024 06:23 Last Updated Dt/Tm: 05/26/2024 09:22 ?? Blood Culture?? Completed?? Source: Blood Body Site: ?? Collected Dt/Tm: 05/25/2024 06:22 Last Updated Dt/Tm: 05/26/2024 09:22 ?? COVID-19 (Novel Coronavirus), Rapid PCR?? Completed?? Source: Nasal Body Site: Nose Collected Dt/Tm: 05/24/2024 17:43 Last Updated Dt/Tm: 05/24/2024 19:00 ? 45 minutes spent on discharge * Parent Laquita CAMPOS: PERFORM, SIGN, VERIFY Event Display: Case Management Discharge Plan Authored Date: [id number] Patient: CHRISTEL ARREAGA Age: 43 years Sex: Male : 1980 Associated Diagnoses: None Author: Parent RN, Laquita Campbell Discharge Plan Case Management Discharge Plan : Case Management Discharge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 few minutes, or goes away and comes back. It can feel like uncomfortable pressure, squeezing, fullness or pain. Discomfort in upper body: Symptoms can include pain or discomfort in one or both arms, back, neck, jaw or stomach. Shortness of breath: With or without discomfort. Other signs: Breaking out in a cold sweat, nausea, or lightheaded. Remember, MINUTES DO MATTER. If you experience any of these heart attack warning signs, call to get immediate medical attention! ?? Smoking can increase your chances of developing chronic health problems and can cause harmful effects to other family members in your house. If you smoke, you are strongly encouraged to quit. Please call [employer] [facility] at [phone] or [phone] ([phone]) or log in to [email or web address] for referrals to smoking cessation programs. ?? 788 Suicide & Crisis Lifeline is available 20/11 if you or someone you know needs to find a reason to keep living. By calling 988 you'll be connected to a skilled, trained counselor at a crisis center in your area. INPATIENT DISCHARGE INSTRUCTIONS SIGNATURE PAGE CHRISTEL ARREAGA [facility]:[id number] Location:[facility] Registration Date and Time:05/24/2024 20:11 EST Primary Care Physician: Not on Staff, PCP Attending Physician: Anel TOVAR, Melissa, I CHRISTEL ARREAGA, have received the above patient education materials/instructions and have verbalized understanding. If ambulance or transport services are being used I further acknowledge beinggiven a choice of service. ?? If you need to contact me, please call me at this number: . Patient/Car Washer Name: Patient/Car Washer Signature: Relationship to Patient: Witness Name/Signature: Date: * Leann Carney RN: PERFORM Event Display: Patient Education Leaflets Authored Date: [id number] Fall??Prevention ?? 388648am Fall??Prevention Falls often take place due to slipping, tripping, or losing your balance. Millions of people fall every year and injure themselves.??Among older adults in the [place] falls are the most common cause oftraumatic brain injuries. Every 20 minutes, an older adult dies from a fall. Here are ways to reduce your risk of falling again: ??? Think about your fall. Was there anything that caused your fall that can be fixed, removed, or replaced? Make your home safe by keeping walkways clear of objects you may trip over, such as electrical cords. ??? Use nonslip pads under rugs. Don't use area rugs orsmall throw rugs. ??? Use nonslip mats in bathtubs and showers. ??? Hang grab rails by the toilet and inside and outside the shower. ??? Install handrails and lights on staircases. The handrails should be on both sides of the stairs. ??? Use night lights. ??? Don't walk in poorly lit areas. ??? Don't stand on chairs or wobbly ladders. ??? Use care when reaching overhead or looking up.??This position can cause a loss of balance. ??? Be sure your shoes fit well, are in good condition, and have non slip bottoms.? Wear shoes both inside and outside of your home. Don't go barefoot or wear slippers. ??? Be cautious when going up and down stairs, curbs, and when walking on uneven sidewalks. ??? If your balance is poor, consider using a cane or walker. Talk with your healthcare provider abouthaving a balance assessment. ??? If your fall was related to alcohol use, stop or limit alcohol intake.??Ask your provider for help if you think you may overuse alcohol and can't stop. ??? If your fall was related to use of sleeping medicines, talk with your provider about this.??You may need to reduce your dosage at bedtime if you wake up during the night to go to the bathroom.? To reducethe need for nighttime bathroom trips: o Don't drink fluids for several hours before going to bed oEmpty your bladder before going to bed o Men can keep a urinal at the bedside ??? Stay as active asyou can. Balance, flexibility, strength, and endurance all come from exercise. They all play a rolein preventing falls. Ask your provider which types of activity are right for you. Try to do some type of exercise every day. ??? Get your eyes checked once a year or more often if your vision changes??? If you have pets, know where they are before you stand up or walk so you don't trip over them. ??? Go over all your medicines with a pharmacist or other provider. This is to see if any of them could make you more likely to fall. Have this type of medicine review at least once every year. ??? Ifyour provider advises a new medicine, ask if the side effects will affect your balance. ??? Don't move quickly from one position to another. For instance, don't stand up fast from sitting. This can cause dizziness and may lead to a fall. ??? Sit down when putting on pants, socks, and shoes. This will make you less likely to lose your balance and fall. ??? Always let your provider know if you havefallen since your last visit. ??? Contact your provider right away if you're having balance problems or falling more often. Last Reviewed Date: 2021 ?? 2954-8714 [employer]. All rights reserved. This information is not intended as a substitute for professional medical care. Always follow your healthcare professional's instructions. ?? * Leann Carney RN: PERFORM Event Display: Patient Education Leaflets Authored Date: [id number] Recurrent Seizure (Adult) ?? 626601me Recurrent Seizure (Adult) You have had another seizure today. A common cause of seizures that keep happening (recurrent seizures) is missing doses of seizure medicine. But sometimes seizures are hard to control even when you take the medicine correctly. If this is the case for you, your healthcare provider may need to increase your dosage. Or you may need to add or change to another medicine. Home care Follow these tips when caring for yourself at home. ??? Seizures aren???t predictable. So don't do anything that might cause danger to you or other people if you have another seizure. Until the seizures are under good control, take these safety steps:o Don???t drive, ride a motorcycle, or ride a bike. o Don???t operate dangerous equipment such as power tools. o Take showers instead of baths. o Don???t swim or climb ladders, trees, or roofs. ??? Tell your close friends and relatives about your seizure. Teach them what to do for you if it happensagain. ??? If medicine was prescribed to prevent seizures, take it exactly as directed. Missing doses will increase the risk of having another seizure. ??? If you miss a dose, take the missed dose assoon as you remember. If it's almost time for your next dose, skip the missed dose. Restart the medicine at your next scheduled time. Don???t take extra medicine to make up for the missed dose. ??? Wear a Medic-Alert bracelet to let emergency staff know about your condition. ??? Follow a regular sleep schedule so that you get at least 6 to 8 hours of restful sleep every night. This is especially important when you're sick with a cold or flu or another type of infection. ??? Alcohol and illegal drugs can cause you to have more seizures. Ask your provider if you are allowed to drink any alcohol at all. For future seizures, if you're alone: ??? If you feel a seizure coming on, lie down on a bed or on the floor with something soft under your head. This will keep you from falling. Lie on your left side, not on your back. This will let fluid drain out of your mouth and prevent choking. Be sure you are clear of any objects that might injure you during the seizure. Call for help if there is time. For future seizures, if someone is with you: ??? The person should help you get into a safe position and call for help. The person shouldn???t try to force anything in your mouth once the seizure begins. This could harm your teeth or jaw. ?? Follow-up care Follow up with your healthcare provider. Keep a seizure calendar to record how often you have a seizure. If you're being started on anti-seizure medicine, ask your provider if you need additional control. Seizure medicine can affect how well control pills work, and you could become . Some women who take seizure medicine also need certain vitamins. Tell your provider if you plan on getting or if you become . Don't drink alcohol until your provider tells you it???s OK. Each state has different laws that say when someone with seizures is allowed to drive. Some states require that a seizure disorder to be reported to the state. They don't allow you to drive until your seizures are controlled. Talk with your provider to see if this applies to you. ?? Important Don't drive until you've followed up with your healthcare provider and you've been cleared to drive. ?? When to get medical care Call your healthcare provider right away??if any of these occur: ??? Seizures happen more often or last longer than normal ??? A seizure lasts more than 5 minutes ??? You don???t wake up between seizures ??? Confusion that lasts more than 30 minutes after a seizure ??? Injury during a seizure ??? Fever of 100.4??F (38.0??C) or higher, or as advised by your provider ??? Unusual grouchiness, drowsiness, or confusion ??? Stiff or painful neck ??? Headache that gets worse? Last Reviewed Date: 2021 ?? 1839-5589 [employer]. All rights reserved. This information is not intended as a substitute for professional medical care. Always follow your healthcare professional's instructions. ?? * Leann Carney RN: PERFORM Event Display: Patient Education Leaflets Authored Date: [id number] Epilepsy ?? Epilepsy - Video Epilepsy is a seizure disorder that affects thousands of adults and children. A seizure is when thebrain has a burst of abnormal electrical signals over a short period of time. These signals cause the body and brain to react in certain ways.??This video discusses the causes of epilepsy and??what treatments are available. To view the video go to this web address: https://bit.[employer]/3vAYgjU Or, scan this QR code with your smart phone Last Reviewed Date: 2019 ?? 2752-9235 [employer]. All rights reserved. This information is not intended as a substitute for professional medical care. Always follow your healthcare professional's instructions. ?? Patient Care team information Care Team Personnel Name: Argelia Hendrix RN Position: [facility] RN Member Role: Primary Care Nurse Name: Sudheer Bryant RN Position: [facility] RN Member Role: Primary Care Nurse Name: Ehsan Patterson RN Position: [facility] RN Member Role: Primary Care Nurse Name: Pierre Dominguez RN Position: [facility] RN Member Role: Primary Care Nurse Name: Francis Muir RN Position: [facility] RN Member Role: Primary Care Nurse Name: Chantel Pena RN Position: [facility] RN Member Role: Primary Care Nurse Name: Deonte Kitchen RN Position: [facility] RN Member Role: Primary Care Nurse Name: Josefina Renteria RN Position: [facility] RN Member Role: Primary Care Nurse Name: Jackie Benavides RN Position: [facility] RN Member Role: Primary Care Nurse Name: Not on Staff, PCP Position: [facility] Physician (General Medicine) Member Role: PCP Name: Oliver Wise RN Position: [facility] RN Member Role: Primary Care Nurse Name: Heather Ramirez LPN Position: [facility] RN Member Role: Primary Care Nurse Care Team Related Persons Name: ADENIKE GRAHAM Name: ADENIKE MOLINA Insurance Providers Guarantor name: SRINIVAS Health Plan Information #: 1 Payer: [facility]ARE Member Number: [id number] Policy Number: NA Group Number: [employer] [facility] [employer] Health Plan Information #: 2 Payer: [employer]URANCE Member Number: [id number] Policy Number: NA Group Number:
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
--- OUTSIDE RECORDS SUMMARY | 2024-06-17 12:58 | XMS_ITS | Continuity of Care Document ---
Author Organization [facility] Address [address] [place] [address]- Care Team Providers Care Donor Relations Officer Name Role Phone Not on Staff, PCP Primary Care Physician Unavail able [id number] Date[facility]): 04/09/24 - 06/06/[address] [address]- Attending Physician: Not on Staff, Attending MD Referring Physician: Melinda Phillip MD Encounter Type: Pre-OutPatient One Time Allergies, Adverse Reactions, Alerts Substance Criticality Severity Reaction Reaction Severity Status codeine Active penicillin Active Latex Active Contrast Dye Active Immunizations Given and Recorded Vaccine Date [...] 05/29/24 3:19:00 PM EST,Route to Pharmacy Electronically, [facility], Partial fill upon patient request [...] 1:06:00 PM EST, Route to Pharmacy Electronically, [facility], Partial fill upon patient request [...] Refills, Maintenance, 06/04/24 1:06:00 PM EST, Tablet, [facility], Partial fill upon patient request [...] Refills, Maintenance, 05/29/24 3:19:00 PM EST, Solution, [facility], Partial fill upon patient request [...] 4:29:00 AM EST, Route to Pharmacy Electronically, [facility] #[id number], Partial fill upon patient request if the [...] Refills, Maintenance, 05/29/24 3:19:00 PM EST, Tablet, [facility], Partial fill upon patient request [...] 6 Refills, Maintenance, 04/16/24 4:30:00 AM EST, [facility] #[id number], Partial fill upon patient request if the [...] Refills, Maintenance, 04/16/24 4:29:00 AM EST, Patch, [facility] #[id number], Partial fill upon patient request if the [...] Refills, Maintenance, 06/04/24 1:06:00 PM EST, Tablet, [facility], Partial fill upon patient request [...] Team Personnel Name: Argelia Hendrix RN Position: [facility] RN Member Role: Primary Care Nurse Name: Sudheer Bryant RN Position: [facility] RN Member Role: Primary Care Nurse Name: Ehsan Patterson RN Position: [facility] RN Member Role: Primary Care Nurse Name: Pierre Dominguez RN Position: [facility] RN Member Role: Primary Care Nurse Name: Francis Muir RN Position: S RN Member Role: Primary Care Nurse Name: Chantel Pena RN Position: [facility] RN Member Role: Primary Care Nurse Name: Tamela Lange RN Position: [facility] RN Member Role: Primary Care Nurse Name: Deonte Kitchen RN Position: [facility] RN Member Role: Primary Care Nurse Name: Rodolfo Garay RN Position: [facility] RN Member Role: Primary Care Nurse Name: Josefina Renteria RN Position: [facility] RN Member Role: Primary Care Nurse Name: Jackie Benavides RN Position: [facility] RN Member Role: Primary Care Nurse Name: Not on Staff, PCP Position: [facility] Physician (General Medicine) Member Role: PCP Name: Oliver Wise RN Position: [facility] RN Member Role: Primary Care Nurse Name: Heather Ramirez LPN Position: [facility] RN Member Role: Primary Care Nurse Care Team Related Persons Name: STAR GRAHAM Name: STAR MOLINA Insurance Providers Guarantor name: SRINIVAS Health Plan Information #: 1 Payer: [facility] Member Number: [id number] Policy Number: NA Group Number: [facility] Health Plan Information #: 2 Payer: [facility] Member Number: [id number] Policy Number: NA Group Number: NA
--- OUTSIDE RECORDS SUMMARY | 2024-06-17 12:58 | XMS_ITS | Continuity of Care Document ---
Author Organization [facility] Address [address] [place] [id number] Care Team Providers Care Hvac Manager Name Role Phone Not on Staff, PCP Primary Care Physician Unavail able Encounter [facility] [id number] Date(s): 05/07/24 - 06/06/[address] [address] Attending Physician: Keren Armstrong Admitting Physician: Keren [...] 05/29/24 3:19:00 PM EST,Route to Pharmacy Electronically, [facility], Partial fill upon patient request [...] 1:06:00 PM EST, Route to Pharmacy Electronically, [facility], Partial fill upon patient request [...] Refills, Maintenance, 06/04/24 1:06:00 PM EST, Tablet, [facility], Partial fill upon patient request [...] Refills, Maintenance, 05/29/24 3:19:00 PM EST, Solution, [facility], Partial fill upon patient request [...] 4:29:00 AM EST, Route to Pharmacy Electronically, [id number], Partial fill upon patient request if the [...] Refills, Maintenance, 05/29/24 3:19:00 PM EST, Tablet, [facility], Partial fill upon patient request [...] 6 Refills, Maintenance, 04/16/24 4:30:00 AM EST, [id number], Partial fill upon patient request if the [...] Refills, Maintenance, 04/16/24 4:29:00 AM EST, Patch, [facility][id number], Partial fill upon patient request if the [...] Refills, Maintenance, 06/04/24 1:06:00 PM EST, Tablet, [facility], Partial fill upon patient request [...] Team Personnel Name: Argelia Hendrix RN Position: [facility] RN Member Role: Primary Care Nurse Name: Sudheer Bryant RN Position: [facility] RN Member Role: Primary Care Nurse Name: Ehsan Patterson RN Position: S RN Member Role: Primary Care Nurse Name: Pierre Dominguez RN Position: S RN Member Role: Primary Care Nurse Name: Francis uMir RN Position: S RN Member Role: Primary Care Nurse Name: Chantel Pena RN Position: S RN Member Role: Primary Care Nurse Name: Tamela Lange RN Position: S RN Member Role: Primary Care Nurse Name: Deonte Kitchen RN Position: [facility] RN Member Role: Primary Care Nurse Name: Rodolfo Garay RN Position: [facility] RN Member Role: Primary Care Nurse Name: Josefina Renteria RN Position: [facility] RN Member Role: Primary Care Nurse Name: Jackie Benavides RN Position: [facility] RN Member Role: Primary Care Nurse Name: Not on Staff, PCP Position: [facility] Physician (General Medicine) Member Role: PCP Name: Oliver Wise RN Position: [facility] RN Member Role: Primary Care Nurse Name: Heather Ramirez LPN Position: [facility] RN Member Role: Primary Care Nurse Care Team Related Persons Name: STAR GRAHAM Name: STAR MOLINA Insurance Providers Guarantor name: SRINIVAS Health Plan Information #: 1 Payer: [facility] Member Number: NA Policy Number: SRINIVAS Group Number: NA
--- OUTSIDE RECORDS SUMMARY | 2024-06-17 12:58 | XMS_ITS | Continuity of Care Document ---
Author Organization [facility] ter Address [address] [place] [id number]- Care Team Providers Care Digital Strategy Director Name Role Phone Not on Staff, PCP Primary Care Physician Unavail able Encounter [facility] [id number] Date(s): 05/30/24 - 06/04/[address] [address]- Encounter Diagnosis Seizure(Final) - 05/30/24 Pneumonia(Final) - 05/30/24 Acute respiratory failure(Final) - 05/30/24 Discharge Disposition: A-Transfer VNA/Home Health Attending Physician: Erick Osborn MD Admitting Physician: Susan TOVAR, Darrell Campbell Referring Physician: Not on Staff, Referring MD [...] 05/29/24 3:19:00 PM EST,Route to Pharmacy Electronically, [facility], Partial fill upon patient [...] 1:06:00 PM EST, Route to Pharmacy Electronically, [facility], Partial fill upon patient [...] Refills, Maintenance, 06/04/24 1:06:00 PM EST, Tablet, [facility], Partial fill upon patient request if [...] Refills, Maintenance, 05/29/24 3:19:00 PM EST, Solution, [facility], Partial fill upon patient [...] 4:29:00 AM EST, Route to Pharmacy Electronically, [facility][id number], Partial fill upon patient request if the [...] Refills, Maintenance, 05/29/24 3:19:00 PM EST, Tablet, [facility], Partial fill upon patient [...] 6 Refills, Maintenance, 04/16/24 4:30:00 AM EST, [facility] #[id number], Partial fill upon patient request if the [...] Refills, Maintenance, 04/16/24 4:29:00 AM EST, Patch, [facility] #[id number], Partial fill upon patient request if the [...] 3:19:00 PM EST, Route to Pharmacy Electronically, [facility], Partial fill upon patient [...] Refills, Maintenance, 06/04/24 1:06:00 PM EST, Tablet, [facility], Partial fill upon patient [...] use disorder Confirmed Active Results Radiology Reports * Exam Date Time Procedure Performing Provider Status 06/01/24 9:25 AM Chest Portable Jamila Amato; Auth (V erified) Notes: (Chest Portable) Reason For Exam: Tube Placement RESULT: Chest Portable Chest Portable Reason: Tube Placement; Clinical Question(s): Tube Placement COMPARISON: Chest radiograph 05/31/2024 FINDINGS: LINES AND TUBES: Endotracheal tube in place, tip approximately 5.8 cm above the allan. Enteric tube in place, tip and side port below the diaphragm in the stomach. Left subclavian central venous catheter tip projecting at superior cavoatrial junction LUNGS AND PLEURA: Ill-defined patchy contrast passes in both lungs are not significantly changed. No pleural effusion. No pneumothorax. HEART, MEDIASTINUM AND CARSON: Heart is normal in size. Normal mediastinal and hilar contour. BONES AND SOFT TISSUES: No acute abnormality. IMPRESSION: 1. Lines and tubes as above. Slightly high position of the endotracheal tube. Consider advancement for optimal positioning. 2. Similar configuration multifocal airspace opacities bilaterally. WSN: [id number] Ordering Physician: Angelina Nicolas Dictated By: Sudheer Humphreys MD Dictated Date/Time: 06/01/24 10:01 a Reviewed By: Sudheer Humphreys MD Signed By: Sudheer Humphreys MD Signed Date/Time: 06/01/24 10:01 am Transcribed By: TOM Transcribed Date/Time: 06/01/24 9:59 am * Exam Date Time Procedure Performing Provider Status 05/31/24 5:38 AM Chest Portable Sherri Benoit; Auth ( Verified) Notes: (Chest Portable) Reason For Exam: Line Placement RESULT: Chest Portable Chest Portable performed semiupright at 4:53 AM Reason: Line Placement; Clinical Question(s): Line Placement COMPARISON: Multiple prior chest x-rays, the most recent of which is dated 05/31/2024. FINDINGS: LINES AND TUBES: The endotracheal tube tip is seen approximately 5.7 cm above the allan. An enteric tube extends tothe stomach. Interval placement of a left subclavian central venous catheter with tip at the SVC right atrial junction. LUNGS AND PLEURA: Patchy groundglass opacities are seen in both lungs, most pronounced in the mid lung. Lung volumes are lower than on prior examination. No pleural effusion. No pneumothorax. HEART, MEDIASTINUM AND CARSON: Heart is normal in size. Normal mediastinal and hilar contour. BONES AND SOFT TISSUES: No acute abnormality. IMPRESSION: 1. Tubes and lines as above. 2. No evidence of pneumothorax status post placement of the left subclavian central venous catheter. Otherwise no interval change. WSN: [id number] Ordering Physician: Tom Ahumada Dictated By: Neda Caceres MD Dictated Date/Time: 05/31/24 6:04 am Reviewed By: Neda Caceres MD Signed By: Neda Caceres MD Signed Date/Time: 05/31/24 6:04 am Transcribed By: TOM Transcribed Date/Time: 05/31/24 6:03 am * Exam Date Time Procedure Performing Provider Status 05/31/24 12:22 AM Chest Portable Williams Valente (Armando ified) Notes: (Chest Portable) Reason For Exam: Shortness of Breath RESULT: Chest Portable Chest Portable performed upright at 12:10 AM Reason: Shortness of Breath; Clinical Question(s): Pneumothorax COMPARISON: Multiple prior chest x-rays, the most recent of which is dated 05/30/2024. Comparison isalso made with CT angiogram of the chest dated 05/30/2024 FINDINGS: LINES AND TUBES: There is an enteric tube extending to the stomach. Endotracheal tube tip is seen 6.5 cm above the allan. LUNGS AND PLEURA: Patchy ground glass opacities are seen throughout both lungs, most pronounced in the mid to lower lung. No pleural effusion. No pneumothorax. HEART, MEDIASTINUM AND CARSON: Heart is normal in size. Normal mediastinal and hilar contour. BONES AND SOFT TISSUES: No acute abnormality. IMPRESSION: 1. Endotracheal and enteric tubes as above. 2. Patchy groundglass opacities in both lungs, most prominent in the mid to lower aspect, which mayreflect multifocal airspace opacity of an infectious or inflammatory etiology. WSN: [id number] Ordering Physician: Tom Ahumada Dictated By: Neda Caceres MD Dictated Date/Time: 05/31/24 5:40 am Reviewed By: Neda Caceres MD Signed By: Neda Caceres MD Signed Date/Time: 05/31/24 5:40 am Transcribed By: TOM Transcribed Date/Time: 05/31/24 5:37 am * Exam Date Time Procedure Performing Provider Status 05/30/24 5:38 PM Chest Portable Jf Best (Verified) Notes: (Chest Portable) Reason For Exam: Shortness of Breath RESULT: Chest Portable Chest Portable Reason: Shortness of Breath; Clinical Question(s): CHF COMPARISON: None. FINDINGS: LINES AND TUBES: Endotracheal and enteric tubes in good position. LUNGS AND PLEURA: No consolidation or overt pulmonary edema. Mild vascular congestion. HEART, MEDIASTINUM AND CARSON: Heart is normal in size. Normal mediastinal and hilar contour. BONES AND SOFT TISSUES: No acute abnormality. IMPRESSION: No acute abnormality. WSN: [id number] Ordering Physician: Romy Alvarez Dictated By: Tariq Salazar MD Dictated Date/Time: 05/30/24 6:15 pm Reviewed By: Tariq Salazar MD Signed By: Tariq Salazar MD Signed Date/Time: 05/30/24 6:15 pm Transcribed By: TOM Transcribed Date/Time: 05/30/24 6:14 pm * Exam Date Time Procedure Performing Provider Status 05/30/24 4:[address] Abd/Pelvis W/ IV Contrast Only Amaury Shazia Tamera; Auth (Verified) Notes: (CT Abd/Pelvis W/ IV Contrast Only) Reason For Exam: LLQ abdominal pain;Other: RESULT: CT Abd/Pelvis W/ IV Contrast Only CT Abd/Pelvis W/ IV Contrast Only Reason: Other:; LLQ abdominal pain; Clinical Question(s): Other:; Order Comment: Patient unable to tolerate PO contrast. TECHNIQUE: Spiral CT through the abdomen and pelvis with IV contrast formatted in 3 planes. 100 cc of was administered intravenously. This study was performed without oral contrast. Weight-based protocol using automatic tube modulation was used to optimize exposure parameters. CTDIvol Body: 14.55 mGy, DLP Body: 1921 mGy*cm. COMPARISON: None. FINDINGS: Manager Asset Management View Findings, Lines and Tubes: None. Visualized Chest: Lung bases are clear. No pleural effusion. The heart is normal in size. No pericardial effusion. Diaphragm: Normal. Liver: Normal. Gallbladder: No CT evidence of gallbladder pathology. Bile ducts: No biliary ductal dilation. Spleen: Normal. Pancreas: Normal. Adrenal glands: Normal. Kidneys and ureters: No hydronephrosis, stones, or suspicious masses. Bladder: Normal. Reproductive organs: Unremarkable. Stomach, small bowel, and large bowel: Normal. Appendix: Normal. Peritoneum and retroperitoneum: No ascites or pneumoperitoneum. No omental or mesenteric lesions. Lymph nodes: No enlarged lymph nodes. Blood vessels: Normal. No aneurysm. No evidence of venous thrombosis. Abdominal and pelvic wall: Unremarkable. Bones: No acute abnormality. IMPRESSION: Unremarkable CT of the abdomen and pelvis. WSN: [id number] Ordering Physician: Citlaly Santos Dictated By: Stanley Degroot MD Dictated Date/Time: 05/30/24 5:23 pm Reviewed By: Stanley Degroot MD Signed By: Stanley Degroot MD Signed Date/Time: 05/30/24 5:23 pm Transcribed By: TOM Transcribed Date/Time: 05/30/24 5:14 pm * Exam Date Time Procedure Performing Provider Status 05/30/24 4:[address] Angio Chest Shazia Rebolledo; Snow (Verified) Notes: (CT Angio Chest) Reason For Exam: PE suspected, Intermediate prob, positive D-dimer;Other: RESULT: CT Angio Chest EXAMINATION: CT Angio Chest INDICATION: Reason: Other:; PE suspected, Intermediate prob, positive D-dimer; Clinical Question(s): Pulmonary Embolism TECHNIQUE: Spiral CTA of the chest was performed after rapid IV contrast administration without cardiac gating, triggered by an ZEINAB on the main pulmonary artery. Images are formatted in multiple planes using 2-D multiplanar and 3-D maximum intensity projection. 100 cc of Isovue 300 was administered intravenously. Weight-based protocol using automatic tube modulation was used to optimize exposure parameters. CTDIvol Body: 14.55 mGy, DLP Body: 1921 mGy*cm. COMPARISONS: CT chest abdomen and pelvis 05/24/2024. ANGIOGRAPHIC FINDINGS: Evaluation is severely limited by motion artifact given suboptimal contrast opacification of the distal segmental and subsegmental pulmonary arteries. No pulmonary embolism to the proximal segmental level. The distal segmental and subsegmental pulmonary arteries are significantly degraded and not well assessed. Normal caliber pulmonary arteries. No acute aortic abnormality seen on this study performed without cardiac gating. NON-ANGIOGRAPHIC FINDINGS: Manager Asset Management View Findings, Lines and Tubes: None. Trachea and Airways: Patent without evidence of tracheal or endobronchial lesion. Lungs and Pleura: Multifocal patchy opacities with tree-in-bud appearance, likely representing multifocal infectious processes. New area of tree-in-bud opacity in the superior right lower lobe and anterior medial left upper lobe with the remaining areas appearing similar to the prior exam. No effusion or pneumothorax. Mediastinum and carson: No mass or hematoma. No mediastinal or hilar lymphadenopathy. No esophageal abnormality. Partially imaged thyroid is unremarkable. Heart: Heart is normal in size. No pericardial effusion. No coronary arterial calcifications. Chest Wall Soft Tissues: Minimal symmetric gynecomastia. Diaphragm and upper abdomen: No significant abnormality. Bones: No acute abnormality. Old healed right posterior ninth rib. IMPRESSION: No evidence of central or proximal segmental pulmonary embolism. Distal segmental and subsegmental pulmonary arteries are not well assessed due to artifact. Multifocal patchy groundglass opacity throughout both lungs, with tree-in-bud appearance. Slightly increased areas in the right lower lobe and anteromedial left upper lobe. Findings concerning for multifocal pneumonitis/pneumonia. I have personally reviewed the images and I agree with this report. WSN: [id number] Ordering Physician: Citlaly Santos Dictated By: Tracy Dumont DO Dictated Date/Time: 05/30/24 5:28 pm Reviewed By: Sudheer Humphreys MD Signed By: Sudheer Humphreys MD Signed Date/Time: 05/30/24 5:33 pm Transcribed By: TOM Transcribed Date/Time: 05/30/24 5:23 pm * Exam Date Time Procedure Performing Provider Status 05/30/24 4:[address] Head/Brain W/O Contrast Shazia Rebolledo; Snow (Verified) Notes: (CT Head/Brain W/O Contrast) Reason For Exam: Other: RESULT: CT Head/Brain W/O Contrast CT Head/Brain W/O Contrast INDICATION: Reason: Other: seizure; Clinical Question(s): Other: TECHNIQUE: Noncontrast head CT using axial technique and reconstructed in axial and coronal planes.Iterative reconstruction techniques are used to optimize dose and image quality. CTDIvol Head: 47.40 mGy, DLP Head: 773 mGy*cm. COMPARISON: None. FINDINGS: Manager Asset Management view findings, lines and tubes: None. BRAIN AND EXTRA-AXIAL SPACES: No parenchymal hemorrhage, midline shift, or mass effect. Mccann-white matter differentiation is wellpreserved. No acute infarct. Ventricles, sulci, and basilar cisterns are normal. No white matter lesions. No subarachnoid hemorrhage. No subdural or epidural collection. CALVARIUM, SKULL BASE, AND SOFT TISSUES: No fractures or suspicious bony lesions. The paranasal sinuses and mastoid air cells are clear. Visualized orbits and globes are intact. The extracranial soft tissues are unremarkable. IMPRESSION: No acute intracranial pathology. WSN: [id number] Ordering Physician: Citlaly Santos Dictated By: Bindu Mercado MD Dictated Date/Time: 05/30/24 4:30 pm Reviewed By: Bindu Mercado MD Signed By: Bindu Mercado MD Signed Date/Time: 05/30/24 4:30 pm Transcribed By: TOM Transcribed Date/Time: 05/30/24 4:19 pm * Exam Date Time Procedure Performing Provider Status 05/30/24 3:20 PM Chest Portable Nicole Best; Snow (Verified) Notes: (Chest Portable) Reason For Exam: Shortness of Breath RESULT: Chest Portable Examination: Portable chest performed on 05/30/2024. History: Shortness of breath. Findings: A frontal view of the chest is compared to a prior study dated 05/26/2024. Since the prior study, the support apparatus has been removed. The cardiac and mediastinal silhouettes are within normal limits. Low lung volumes are present. There is prominence of the pulmonary vasculature without overt edema. No focal infiltrates are seen. The osseous structures are unremarkable. IMPRESSION: Low lung volumes. Pulmonary vascular congestion. WSN: [id number] Ordering Physician: Citlaly Santos Dictated By: Rebecca Paz MD Dictated Date/Time: 05/30/24 3:38 pm Reviewed By: Rebecca Paz MD Signed By: Rebecca Paz MD Signed Date/Time: 05/30/24 3:38 pm Transcribed By: TOM Transcribed Date/Time: 05/30/24 3:36 pm Vital Signs Most recent to oldest [Reference Range]: 1 2 3 Height 180 cm (06/03/24 11:35 AM) 180 cm (05/30/24 8:06 PM) Weight 113 kg (05/30/24 8:06 PM) 113 kg (05/30/24 5:43 PM) 113 kg (05/30/24 4:45 PM) Oxygen Saturation [94-100 %] 97 % (06/04/24 3:52 PM) 100 % (06/04/24 3:00 PM) 94 % (06/04/24 11:00 AM) Pulse Rate [55-90 bpm] 105 bpm *H* (06/04/24 3:52 PM) 105 bpm *H* (06/04/24 3:00 PM) 95 bpm *H* (06/04/24 11:00 AM) Body Mass Index [18.5-24.99 kg/m2] 34.88 kg/m2 *>HHI* (05/30/24 8:06 PM) Blood Pressure [90-138/55-84 mm Hg] 153/94mm Hg *H* (06/04/24 3:52 PM) 146/92mm Hg *H* (06/04/24 3:00 PM) 149/82mm Hg *H* (06/04/24 11:00 AM) Respiratory Rate [16-30 br/min] 19 br/min (06/04/24 3:52 PM) 18 br/min (06/04/24 3:00 PM) 18 br/min (06/04/24 11:00 AM) Temperature [96.8-100.4 DegF] 98.5 DegF (06/04/24 3:52 PM) 96.7 DegF *L* (06/04/24 3:00 PM) 97.5 DegF (06/04/24 11:00 AM) Liters per Minute 0 L/min (06/02/24 5:00 AM) 3 L/min (06/02/24 4:00 AM) 3 L/min (06/02/24 3:00 AM) Mode of Delivery (Oxygen) Room air (06/04/24 3:52 PM) Room air (06/04/24 3:00 PM) Room air (06/04/24 11:00 AM) Blood pressure sites Arm, right (06/04/24 3:52 PM) Arm, left (06/04/24 3:00 PM) Arm, left (06/04/24 11:00 AM) Temperature Route Oral (06/04/24 3:52 PM) Temporal (06/04/24 3:00 PM) Temporal (06/04/24 11:00 AM) Dry Weight 113 kg (05/30/24 8:06 PM) 113 kg (05/30/24 5:43 PM) 113 kg (05/30/24 4:45 PM) Social History Social History Type Response Tobacco Use: 4 or less cigar ettes(less than 1/4 pack)/day in last 30 days. Other: Patient 2 cig on patch currently 06/24/2020. Sex Male Sex Representation Male (finding) Note * Event Display: Provider Clarification Note Please click on pdf link to open report * Event Display: Provider Clarification Note Please click on pdf link to open report * Liat Pizarro RN: PERFORM Event Display: Discharge/Transfer Note Hospital Authored Date: [id number] Nursing Discharge Note Entered On: 06/04/2024 16:44 EST Performed On: 06/04/2024 16:42 EST by Liat Pizarro RN Nursing Discharge Note 2 Discharge Time : 06/04/2024 16:42 EST Discharge Level of Care at Discharge : Homehealth/VNA Discharge VNA/Hospice/Home Care(v001) : [facility] Patient Left Unit Via : Wheelchair Patient Accompanied Off Unit with : Responsible adult DC Instructions Provided & Signed by Pt : Yes Patient Understands D/C Instructions : Yes Patient Instructions Discharge Signed : Yes Did Pt have Specialty Bed or Wound Vac : No Liat Pizarro RN - 06/04/2024 16:42 EST * Kendell VIRAMONTES, Lashawn: PERFORM Event Display: Discharge/Transfer Note Hospital Authored Date: [id number] Patient: ??CHRISTEL LUGO ? Age:??43 Years?Sex:??Male?:??1980?? 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 Use daily to check BP.ICD10: I10Fax to L+C Folic Acid (folic acid 1 mg oral tablet)??1 Milligram By Mouth Daily for 30 Days Gabapentin (gabapentin 100 mg oral capsule)??200 Milligram 2 capsule By Mouth 2 times a day Lacosamide (lacosamide 100 mg oral tablet)??1 tab(s) 100 Milligram By Mouth 2 times a day for 30 Days Lidocaine Topical (lidocaine 4% mucous membrane solution)??See Instructions 5mlSwish and Spit Every4 hours Lisinopril (lisinopril 20 mg oral tablet)??20 Milligram 1 tablet By Mouth Daily lurasidone (lurasidone 60 mg oral tablet)??TAKE 1 TABLET BY MOUTH DAILY WITH FOOD Methadone (methadone 10 mg/5 mL oral solution)??140 Milligram By Mouth Daily last dose 2.5.25 Multivitamin (multivitamin Therapeutic Multiple Vitamins oral tablet)??1 tab(s) Orogastric Tube Daily for 30 Days Nicotine (Nicotine 2 mg gum)??1 Each 2 Milligram Chew Every 2 hours as needed as needed for smokingcessation Nicotine (nicotine 2 mg oral transmucosal lozenge)??1 lozenge(s) 2 Milligram By Mouth Every 2 hours Nicotine (nicotine 21 mg/24 hr transdermal film, extended release)??1 patch(es) Topically Daily Prazosin (prazosin 1 mg oral capsule)??1 Milligram 1 capsule TAKE 1 CAPSULE BY MOUTH EVERY MORNING AND 2 CAPSULES EVERY EVENING Thiamine (thiamine 100 mg oral tablet)??100 Milligram 1 tablet By Mouth Daily for 30 Days Topiramate (topiramate 100 mg oral tablet)??1 tab(s) 100 Milligram By Mouth 2 times a day for 30 Days ? Quality Measures Tobacco Use Treatment:??smoking cessation and nicotine lozenge ? Medications Started none Medications Discontinued none Doses Changed none Allergies Allergies ?(Active and Proposed Allergies Only) penicillin? (Severity: Unknown severity, Onset: Unknown) Latex? (Severity: Unknown severity, Onset: Unknown) codeine? (Severity: Unknown severity, Onset: Unknown) Contrast Dye? (Severity: Unknown severity, Onset: Unknown) ? PCP Follow-Up/Heads-Up Close monitoring for medication refills, especially for anti epileptic medications. Please follow up with renal function, pneumonia, and smoking cessation. Hospital Course Patient is a 43-year-old male with history of seizure disorder who is followed at [facility] by Dr. Ibrahim, depression, anxiety, bipolar disorder versus schizoaffective disorder, prior suicide attempts by overdosing, alcohol use disorder, hypertension, recently admitted to MICU 05/24/2024 for status epilepticus in the setting of medication noncompliance, hypertensive emergency, acute hypoxemic respiratory failure requiring intubation, aspiration pneumonia status post 5 days of ceftriaxone, he was discharged on 05/29/2024 and re- admitted to MICU for altered mental status with questionable seizure on 05/30/2024.? He was intubated in the ER for airway protection and treated in the ICU for seizure and sepsis.??Now extubated and weaned off of sedation.??Concern for SI after writing a note stating kill me , was followed and cleared by psychiatry. He is tolerating a regular diet, medications by mouth, and ambulating independently. ?? Medically cleared for discharge with close follow??up by neuro and PCP.??PLEASE MAKE SURE, PATIENT HAS ALL??BOTH SEIZURE MEDS ( Lacosamide and??Topamax) in their hands, before discharge. ?? Objective Assessment and Plan Acute metabolic encephalopathy (G93.41) ?Associated with??Seizure disorder (G40.909),??Depression (F32.A),??Anxiety (F41.9),??Unspecified mood [affective] disorder (F39),??Long- term current use of methadone for opiate dependence (F11.20),??Alcohol use disorder (F10.90),??History of suicide attempt (Z91.51) ?Continue: -Prazosin 2 mg daily at bedtime, 1 mg daily -Lamotrigine 25 mg daily -Latuda 60 mg daily at supper was ordered but on my review it appears that he refused it overnight. -Xanax 1 mg 4 times a day -Gabapentin 200 mg 2 times a day -Lacosamide 100 mg 2 times a day -Topiramate 100 mg 2 times a day -Methadone 140 mg daily,??Follow-up on QTc -Overall history is unclear and??no clarity on whether this was a seizure episode or??what else caused encephalopathy.?? - Neurology was consulted on recent admission but not on this admission.?? - PCP can assist with neurology outpatient follow-up pending clinical course ?? Acute respiratory failure (J96.00):? Likely in the setting of seizure. CT with multifocal pneumonitis/pneumonia described as increased areas in right lower lobe and left upper lobe, since he has been treated with prolonged antibiotic course for aspiration pneumonia on last admission, ceftriaxone was discontinued.?? No ongoing fever, cough??to suggest pneumonia. -COVID/RSV/flu negative, afebrile, no leukocytosis - Blood cultures all negative ?? Transaminitis (R74.01):??improving, monitor. ?? Mouth ulcer (K12.1):??Magic mouthwash for now.??Patient needs to follow-up with her PCP and will need further evaluation if persistent ?? VTE Prophylaxis:??DVT prophylaxis with subcutaneous heparin ?VTE Prophylaxis Assessment:??VTE Prophylaxis Ordered ?? Discharge Planning:??home ?? Code Status:??Full resuscitation ? Measurements?? Height: 180 cm (06/03/24) Weight: 113 kg (05/30/24) Dry Weight: 113 kg (05/30/24) Body Mass Index:??34.88 kg/m2??Critical (05/30/24) ? Vital Signs?? Temperature: 97.5 DegF (06/04/24 11:00:00) Temperature Route: Temporal (06/04/24 11:00:00) Pulse Rate:??95 bpm??High (06/04/24 11:00:00) Respiratory Rate: 18 br/min (06/04/24 11:00:00) Systolic Blood Pressure:??149 mm Hg??High (06/04/24 11:00:00) Diastolic Blood Pressure: 82 mm Hg (06/04/24 11:00:00) Blood pressure sites: Arm, left (06/04/24 11:00:00) Mean Arterial Pressure: 91 mm Hg (06/04/24 04:04:00) Pulse Pressure: 67 mm Hg (06/04/24 11:00:00) Oxygen Saturation: 94 % (06/04/24 11:00:00) Mode of Delivery (Oxygen): Room air (06/04/24 11:00:00) Early Warning Score: 4 (06/04/24 11:19:12) ? . Physical Exam Constitutional: Alert, in no acute distress. Head: Normocephalic. Eyes: Pupils are equal and round. Extraocular muscles intact. No pallor or scleral icterus Ear, Nose and Throat: mucous membranes moist. Ears and nose - no obvious deformities. Neck: No JVD or bruits. Respiratory:??Equal bilateral air entry. No wheezing or rhonchi.??No use of accessory muscles. Cardiovascular:??S1 S2 regular. No murmurs, rubs or gallops. Gastrointestinal:??Abdomen soft, non-tender, non-distended. Extremities: No lower extremity pitting edema. Neurologic:??AAOx3, Cranial nerves II-XII grossly intact. Speech normal, no facial droop. No focal neurological deficits. Moves all extremities spontaneously. Musculoskeletal:??No gross deformities on inspection. .?? Psychiatric: Normal mood and affect. Consultants Critical care medicine Pending Results Add On Lab Order ordered on 05/30/2024 Add On Lab Order ordered on 05/31/2024 Basic Metabolic Panel ordered on 06/04/2024 CBC ordered on 06/04/2024 Patient Education Titles Web[employer] Patient Education - Safety During a Seizure?? [employer] Patient Education - Treating Epilepsy: Medicines?? [employer] Patient Education - Discharge Instructions for Epilepsy?? [employer] Patient Education - Epilepsy?? Follow-Up Appointments Added Follow Up ?Time Frame ?Comments Follow up with Neurology Not on Staff, PCP Patient Instructions You were treated for acute seizures and pneumonia which resulted in intubation. We understand it was difficult to obtain your seizure medications and have provided thirty days of medications through the [facility] pharmacy. Please take them as prescribed and follow up with your primary care doctor and neurologist as soon as possible. Post Discharge Care Diet: ??Regular Diet ?? Wound Care: ??none ?? Code Status: ??Full ?? Condition: ??stable ?? Prognosis: ??Good ?? Discharge ?06/04/24 13:12:00 EST ?Order Comment:?? Discharge Prescriptions ?ePrescribed, 06/04/24 13:12:00 EST ?Order Comment:?? Home Health Face to Face *Denotes mandatory campbell ?? *I certify that this patient is under my care and that I or an allowed non- physician working with me had a face to face encounter with the patient on this date:??06/04/2024 13:30 ?? *The encounter with the patient was in whole, or in part, for the following medical condition, which is the primary diagnosis(es) for home health care:??Acute metabolic encephalopathy (G93.41) Seizure disorder (G40.909) Depression (F32.A) Anxiety (F41.9) Unspecified mood [affective] disorder (F39) Long-term current use of methadone for opiate dependence (F11.20) Alcohol use disorder (F10.90) History of suicide attempt (Z91.51) Transaminitis (R74.01) Mouth ulcer (K12.1) General medical ([id number]) Seizure (R56.9) Pneumonia (J18.9) Acute respiratory failure (J96.00) ?? *Select the indications for the discipline/s that are being arranged for this patient. Nursing (select all that apply): [_] None [x_] Medication management (reconciliation, teaching)?? [_] Chronic disease [...] [x_] Inability to leave home without assistance/supervision [_] Inability to ambulate without assistance [_] Pain [_] Decreased strength and endurance [_] Unsteady gait [_] Severe SOB and fatigue [_] Impaired transfers [_] Inability to negotiate stairs [_] Limited weight bearing [_] Mental status change? *Physician Signature: Lashawn Rdz DNP ?? *By signing this, I certify that I have personally evaluated the patient and agree with the findings and recommendations as documented above. ? ealthFTF Results Discharge Labs BACTERIOLOGY MRSA PCR Result Negative, MRSA target DNA not detected. ()?? 05/30/2024 23:41 S Aureus ??PCR Result Negative, SA target DNA not detected. ()?? 05/30/2024 23:41 Blood Culture Results Preliminary report ()?? 05/30/2024 15:26 Blood Culture Specimen Source BLOOD ()?? 05/30/2024 15:26 Blood Culture Isolate 1 Comment ()?? 05/30/2024 15:26 Sputum Culture Specimen Source ENDOTRACHEAL ASPIRATE ()?? 05/31/2024 00:28 Sputum Cult Epithelial Cells Few ()?? 05/31/2024 00:28 Gram Stain Evaluation Comment ()?? 05/31/2024 00:28 Sputum Gram Stain Result 1 Comment ()?? 05/31/2024 00:28 Sputum Gram Stain Result 2 Comment ()?? 05/31/2024 00:28 Sputum Culture Isolate 1 Valentina dubliniensis (Abnormal)?? 05/31/2024 00:28 Sputum Culture Isolate 2 Comment ()?? 05/31/2024 00:28 White Blood Cells Moderate ()?? 05/31/2024 00:28 Blood Cult 2 Results Preliminary report ()?? 05/30/2024 16:26 Blood Culture 2 Specimen Source BLOOD ()?? 05/30/2024 16:26 Blood Culture 2 Isolate 1 Comment ()?? 05/30/2024 16:26 Sputum Culture Status Final report (Abnormal)?? 05/31/2024 00:28 ? BLOOD COUNT & DIFF WBC 7.7 k/mm3 ()?? 06/04/2024 06:38 RBC 3.55 m/mm3 (Low)?? 06/04/2024 06:38 Hgb 10.7 Gm/dL (Low)?? 06/04/2024 06:38 Hct 31.9 % (Low)?? 06/04/2024 06:38 MCV 89.9 femtoliters ()?? 06/04/2024 06:38 MCH 30.1 pg ()?? 06/04/2024 06:38 MCHC 33.5 Gm/dL ()?? 06/04/2024 06:38 Platelet Count 346 k/mm3 ()?? 06/04/2024 06:38 RDW-SD 44.6 femtoliters ()?? 06/04/2024 06:38 MPV 9.6 femtoliters ()?? 06/04/2024 06:38 Nucleated RBC (Automated) 0.0 #/100 WBC'S ()?? 06/04/2024 06:38 Abs. NRBC 0.0 k/mm3 ()?? 06/04/2024 06:38 Abs. Neut 6.3 k/mm3 ()?? 06/01/2024 02:06 Abs. Lymph 3.1 k/mm3 ()?? 06/01/2024 02:06 Abs. Carbon 0.4 k/mm3 ()?? 06/01/2024 02:06 Abs. Eo 0.4 k/mm3 ()?? 06/01/2024 02:06 Abs. Baso 0.2 k/mm3 (High)?? 06/01/2024 02:06 Neut % 61.2 % ()?? 06/01/2024 02:06 Lymph % 26.5 % ()?? 06/01/2024 02:06 Carbon % 3.5 % (Low)?? 06/01/2024 02:06 Eos % 3.5 % ()?? 06/01/2024 02:06 Baso % 1.8 % ()?? 06/01/2024 02:06 Atypical Lymph % 3.5 % ()?? 06/01/2024 02:06 RBC Morphology MODERATE ()?? 06/01/2024 02:06 Platelet Estimate ADEQUATE ()?? 06/01/2024 02:06 Hemoglobin (POC) POC Cartridge 15.3 Gm/dL ()?? 05/30/2024 15:23 Hematocrit (POC) POC Cartridge 45 % ()?? 05/30/2024 15:23 Imm Gran 4.6 % ()?? 05/30/2024 15:26 Abs. Imm Gran 0.5 k/mm3 ()?? 05/30/2024 15:26 ? BLOOD GAS pH Venous (POC) POC Cartridge 7.42 ()?? 05/30/2024 15:23 pCO2 Venous (POC) POC Cartridge 31.3 mm Hg (Low)?? 05/30/2024 15:23 pO2 Venous (POC) POC Cartridge 23 mm Hg (Low)?? 05/30/2024 15:23 Est Bicarbonate (POC) POC Cartridge 20.2 mmol/L (Low)?? 05/30/2024 15:23 % O2 Sat Venous (POC) POC Cartridge 43 ()?? 05/30/2024 15:23 Base Excess (POC) POC Cartridge NEGATIVE 4 ()?? 05/30/2024 15:23 pH 7.44 ()?? 05/31/2024 23:41 pCO2 30 mm Hg (Low)?? 05/31/2024 23:41 pO2 80 mm Hg ()?? 05/31/2024 23:41 Bicarbonate, Estimated 20 mmol/L (Low)?? 05/31/2024 23:41 Specimen Type - Blood Gas ARTERIAL ()?? 05/31/2024 23:41 pH, Venous 7.36 ()?? 05/31/2024 15:45 pCO2, Venous 39 mm Hg (Low)?? 05/31/2024 15:45 pO2, Venous 40 mm Hg ()?? 05/31/2024 15:45 Bicarbonate, Estimated(Venous) 21 mmol/L (Low)?? 05/31/2024 15:45 Percent O2 (FIO2) 40 ()?? 05/31/2024 23:41 ?? CHEM GENERAL Sodium 137 mmol/L ()?? 06/04/2024 06:38 Potassium 3.4 mmol/L (Low)?? 06/04/2024 06:38 Chloride 104 mmol/L ()?? 06/04/2024 06:38 Bicarbonate Level 21 mmol/L (Low)?? 06/04/2024 06:38 Anion Gap 12 mmol/L ()?? 06/04/2024 06:38 Sodium (POC) POC Cartridge 141 mmol/L ()?? 05/30/2024 15:23 Potassium (POC) POC Cartridge 3.9 mmol/L ()?? 05/30/2024 15:23 Glucose Level 101 mg/dL (High)?? 06/04/2024 06:38 Glucose (POC) POC Cartridge 150 (High)?? 05/30/2024 15:23 Glucose, POC 109 mg/dL (High)?? 06/04/2024 11:06 BUN 11 mg/dL ()?? 06/04/2024 06:38 Creatinine-Blood 0.94 mg/dL ()?? 06/04/2024 06:38 Estimated GFR Creatinine 103 ML/MIN/1.73 M2 ()?? 06/04/2024 06:38 Calcium 9.0 mg/dL ()?? 06/04/2024 06:38 Ionized Calcium (POC) POC Cartridge 1.25 mmol/L ()?? 05/30/2024 15:23 Phosphorus 2.4 mg/dL (Low)?? 06/01/2024 02:07 Magnesium 2.8 mg/dL (High)?? 06/01/2024 02:07 Protein, Total 6.9 Gm/dL ()?? 06/04/2024 06:38 Albumin 3.5 Gm/dL ()?? 06/04/2024 06:38 AG Ratio 1.0 ()?? 06/04/2024 06:38 Alkaline Phosphatase 168 units/L (High)?? 06/04/2024 06:38 AST (SGOT) 68 units/L (High)?? 06/04/2024 06:38 ALT (SGPT) 108 units/L (High)?? 06/04/2024 06:38 Bilirubin, Total 0.4 mg/dL ()?? 06/04/2024 06:38 Lactate 2.0 mmol/L ()?? 05/30/2024 15:26 ? ENDOCRINE/TUMOR MARKER TSH 1.14 uIU/mL ()?? 05/30/2024 15:26 ? HEME OTHER Hold Lavender Top SPECIMEN DISCARDED AFTER 24 HOURS. ()?? 06/04/2024 06:38 ? LIPID STUDIES Triglycerides 385 mg/dL (High)?? 05/31/2024 04:40 ? TOXICOLOGY/TDM Ethanol, Serum or Plasma NONE DETECTED mg/dL ()?? 05/30/2024 15:26 Salicylate Level <0.3 mg/dL (Low)?? 05/30/2024 15:26 Barbiturate Screen, Urine NONE DETECTED ()?? 05/30/2024 16:56 Cannabinoid Screen, Urine POSITIVE (Abnormal)?? 05/30/2024 16:56 Cocaine Metabolite Screen, Urine NONE DETECTED ()?? 05/30/2024 16:56 Benzodiazepine Screen, Urine POSITIVE (Abnormal)?? 05/30/2024 16:56 Amphetamine Screen, Urine NONE DETECTED ()?? 05/30/2024 16:56 Opiate Screen, Urine NONE DETECTED ()?? 05/30/2024 16:56 Acetaminophen Level <5 mg/L (Low)?? 05/30/2024 15:26 ? UA/URINALYSIS Appear/Color, Urine YELLOW ()?? 05/30/2024 16:56 Specific [place], Urine 1.011 ()?? 05/30/2024 16:56 pH, Urine 7.0 ()?? 05/30/2024 16:56 Albumin, Urine 1+ (Abnormal)?? 05/30/2024 16:56 Glucose, Urine NEGATIVE ()?? 05/30/2024 16:56 Ketones, Urine TRACE (Abnormal)?? 05/30/2024 16:56 Bilirubin, Urine NEGATIVE ()?? 05/30/2024 16:56 Hemoglobin, Urine NEGATIVE ()?? 05/30/2024 16:56 Nitrite, Urine NEGATIVE ()?? 05/30/2024 16:56 Leukocyte, Urine NEGATIVE ()?? 05/30/2024 16:56 Urobilinogen NORMAL mg/dL ()?? 05/30/2024 16:56 WBC's, Urine 3 /HPF ()?? 05/30/2024 16:56 RBC's, Urine 2 /HPF ()?? 05/30/2024 16:56 Mucus SLIGHT /LPF ()?? 05/30/2024 16:56 Hold Urine Culture Testing available 48 hours from time of collection. ()?? 05/30/2024 16:56 ? URINE OTHER Est Creatinine Clearance 106.37 mL/min ()?? 06/04/2024 08:45 ? VIROLOGY Influenza A PCR NEGATIVE ()?? 05/30/2024 15:30 Influenza B PCR NEGATIVE ()?? 05/30/2024 15:30 RSV PCR NEGATIVE ()?? 05/30/2024 15:30 COVID-19 PCR Specimen Source NASAL ()?? 05/30/2024 15:30 COVID-19 PCR Result NEGATIVE ()?? 05/30/2024 15:30 ? 35_ minutes spent on discharge * Erick Osborn MD: PERFORM Event Display: Discharge/Transfer Note Hospital Authored Date: Attending Attestation: I have reviewed the patient???s medical history, findings on examination, diagnosis and treatment.?? I have discussed the case and its management with the??[employer] and agree with the findings and plan as documented in the [employer]???s note. * Erick Osborn MD: PERFORM Event Display: Discharge/Transfer Note Hospital Authored Date: Updated MED list: ?? Alprazolam (ALPRAZolam 1 mg oral tablet)??1 tab(s) 1 Milligram By Mouth 3 times a day as needed foranxiety Durable Medical Equipment (Ambulatory BP Monitor and Cuff)??See Instructions Please size to patients arm. Use daily to check BP.ICD10: I10Fax to L+C Folic Acid (folic acid 1 mg oral tablet)??1 Milligram By Mouth Daily for 30 Days Gabapentin (gabapentin 100 mg oral capsule)??200 Milligram 2 capsule By Mouth 2 times a day Lacosamide (lacosamide 100 mg oral tablet)??1 tab(s) 100 Milligram By Mouth 2 times a day for 30 Days Lidocaine Topical (lidocaine 4% mucous membrane solution)??See Instructions 5mlSwish and Spit Every4 hours Lisinopril (lisinopril 20 mg oral tablet)??20 Milligram 1 tablet By Mouth Daily lurasidone (lurasidone 60 mg oral tablet)??TAKE 1 TABLET BY MOUTH DAILY WITH FOOD Methadone (methadone 10 mg/5 mL oral solution)??140 Milligram By Mouth Daily last dosed 05/23/24 @ 9:58 a.m. confirmed with [facility] Multivitamin (multivitamin Therapeutic Multiple Vitamins oral tablet)??1 tab(s) By Mouth Daily for 30 Days Nicotine (Nicotine 2 mg gum)??1 Each 2 Milligram Chew Every 2 hours as needed as needed for smokingcessation Nicotine (nicotine 2 mg oral transmucosal lozenge)??1 lozenge(s) 2 Milligram By Mouth Every 2 hours Nicotine (nicotine 21 mg/24 hr transdermal film, extended release)??1 patch(es) Topically Daily Prazosin (prazosin 1 mg oral capsule)??1 Milligram 1 capsule TAKE 1 CAPSULE BY MOUTH EVERY MORNING AND 2 CAPSULES EVERY EVENING Thiamine (thiamine 100 mg oral tablet)??100 Milligram 1 tablet By Mouth Daily for 30 Days Topiramate (topiramate 100 mg oral tablet)??1 tab(s) 100 Milligram By Mouth 2 times a day for 30 Days ?? No Lamotrigine. ? Disclaimer: This dictation was accomplished with use of [employer] voice recognition software, prone tomedical word misidentifications and grammatical errors. The physician does strive to identify and correct these, but some could still be present. Please do not hesitate to contact physician for clarifications.? * Parent Laquita CAMPOS: PERFORM, SIGN, VERIFY Event Display: Case Management Discharge Plan Authored Date: Patient: CHRISTEL LUGO Age: 43 years Sex: Male : 1980 Associated Diagnoses: None Author: Parent RN, Laquita Campbell Discharge Plan Case Management Discharge Plan : Case Management Discharge Plan Data 06/04/2024 10:49 EST Discharge Level of Care at Discharge Homehealth/VNA Discharge VNA/Hospice/Home Care Center [facility] Discharge Transportation Arranged Name of Agency #1 [facility] Service Categories #1 [facility] Service Comments #1 for Med Management * Moira CAMPOS, Liat: PERFORM Event Display: Patient Education/Instruction Authored Date: [id number] Inpatient Adult Discharge Instructions. [address] [address] Name: CHRISTEL LUGO : 1980?? Visit: 05/30/2024 19:26?? Current Date: 06/04/2024 15:04 ?? Account: [id number]?? Inpatient Adult Discharge Instructions We would like [...] and their families. Surveys are administered by [employer] ?? If further treatment with your primary care physician or another doctor is recommended, it is important for you to keep the appointment. Call your primary care physician or return to the Emergency Department immediately if your condition worsens, fails to improve, or new symptoms develop. If you need to find a doctor, you can call [facility] for a referral at [phone] or toll free at [phone] or log in to [email or web address].. ?? [facility], in keeping with [facility] guidance, no longer requires face masks [...] a health care keyanna of your choosing. [employer] is a website that allows you to securely view your medical information including your hospital discharge summary, office visit summaries, medications and follow-up visits. You can also request appointments, renew medications, and request access to your medical information using a health care keyanna of your choosing, or just ask a question. You can enroll at [email or web address] or register during your next office visit. You have been discharged from [facility], Patient Care Unit: D5A??. If you have any questions regarding these instructions, including results of studies pending, afteryou leave, please call us and we will be happy to assist you 20/11. [facility] Your Care Team Attending Physician Erick Obsorn MD?? Consulting Providers Erick Osborn MD?? Discharging Providers Kendell VIRAMONTES, Lashawn Reason for Your Visit EMS called by family S/P Ryne post ictal and laura on EMS arrival answering some questions appropriately. En route patient became unresponsive, tachypneic, gurgling resps, ST on monitor?? Your Diagnosis Acute metabolic encephalopathy Seizure disorder Depression Anxiety Unspecified mood [affective] disorder Long-term current use of methadone for opiate dependence Alcohol use disorder History of suicide attempt Transaminitis Mouth ulcer General medical Tests Performed Below is a partial list of the tests performed during your hospitalization. You may have had other tests and procedures not included in this list. Please discuss all test results with your provider. ABG Acetaminophen Level Alcohol Level Amphetamine Urine Screen Aspirin Level Barbiturate Urine Screen BASE EXCESS POC CARTRIDGE Basic Metabolic Panel?-- Results Pending -- Benzodiazepine Urine Screen Blood Culture Blood Culture #2 Blood Culture 2 Results Blood Culture Result CALCIUM IONIZED POC CART Cannabinoid Urine Screen CBC?-- Results Pending -- CBC w/ Differential Cocaine Urine Screen Comprehensive Metabolic Panel COVID-19, RSV, and Flu A/B, Rapid PCR GLUCOSE POC GLUCOSE POC CARTRIDGE HEMATOCRIT POC CARTRIDGE HEMOGLOBIN POC CARTRIDGE HOLD LAVENDER TUBE Lactate Level Magnesium Level MRSA/MSSA PCR Nasal Swab Opiate Screen Urine Phosphorus Level POTASSIUM POC CARTRIDGE SODIUM POC CARTRIDGE Sputum Culture Sputum, Gram Smear w/Culture Rfx TRIGLYCERIDE TSH with T4 Reflex (Adults Only) Urinalysis w/hold for Urine Culture VBG VBG POC CARTRIDGE CT Abd/Pelvis W/ IV Contrast Only CT Angio Chest CT Head/Brain W/O Contrast CXR Portable PCXR XR Chest Portable Acetaminophen Level?? Add On Lab Order?? Amphetamine Urine Screen?? Barbiturate Urine Screen?? Base Excess (Lab) POC Cartridge (BASE EXCESS POC CARTRIDGE)?? Basic Metabolic Panel?? Benzodiazepine Urine Screen?? Blood Culture?? Blood Culture #2?? Blood Culture 2 Results?? Blood Culture Result?? Blood Gas Arterial (ABG)?? Blood Gas Venous (VBG)?? CBC (COMPLETE BLOOD COUNT)?? CBC w/ Differential?? COVID-19, RSV, and Flu A/B, Rapid PCR?? CT Abd/Pelvis W/ IV Contrast Only?? CT Angio Chest?? CT Head/Brain W/O Contrast?? Cannabinoid Urine Screen?? Cocaine Urine Screen?? Comprehensive Metabolic Panel?? Ethanol Level (Alcohol Level)?? Glucose (Lab) POC Cartridge (GLUCOSE POC CARTRIDGE)?? Glucose POC?? Hematocrit (Lab) POC Cartridge (HEMATOCRIT POC CARTRIDGE)?? Hemoglobin (Lab) POC Cartridge (HEMOGLOBIN POC CARTRIDGE)?? Hold Lavender Top Tube (HOLD LAVENDER TUBE)?? Ionized Calcium(POC) POC Cartridge (CALCIUM IONIZED POC CART)?? Lactic Acid Level (Lactate Level)?? MRSA/MSSA PCR Nasal Swab?? Magnesium Level?? Opiate Screen Urine?? Phosphorus Level?? Potassium (Lab) POC Cartridge (POTASSIUM POC CARTRIDGE)?? Salicylate Level (Aspirin Level)?? Sodium (Lab) POC Cartridge (SODIUM POC CARTRIDGE)?? Sputum Culture?? Sputum, Gram Smear w/Culture Rfx?? TSH with T4 Reflex (Adults Only)?? Triglycerides (TRIGLYCERIDE)?? Urinalysis w/hold for Urine Culture?? VBG (Lab) POC Cartridge (VBG POC CARTRIDGE)?? Chest Portable (CXR Portable)?? Primary Care Provider Not on Staff, PCP?? Advance Directive Health Care Proxy on File Yes - Health Care Proxy Discharge Vitals Temperature: 97.5 DegF Height: 180 cm Pulse Rate:??95 bpm??High Weight: 113 kg Respiratory Rate: 18 br/min Body Mass Index:??34.88 kg/m2??Critical Systolic Blood Pressure:??149 mm Hg??High Body surface area: 2.38 Diastolic Blood Pressure: 82 mm Hg ?? Oxygen Saturation: 94 % ?? Studies Pending All studies ordered during this hospital stay have been completed unless listed below. Please discuss all pending results with your provider listed above in these instructions. ?? Add On Lab Order?? Basic Metabolic Panel?? CBC?? What to do next Instructions From Your Doctor You were treated for acute seizures and pneumonia which resulted in intubation. We understand it was difficult to obtain your seizure medications and have provided thirty days of medications through the [facility] pharmacy. Please take them as prescribed and follow up with your primary care doctor and neurologist as soon as possible. ?? Orders??:Regular Diet Care:none Status:Full :stable :Good? 06/04/24 13:12:00 EST?? Prescriptions??, ??06/04/24 13:12:00 EST?? You Need to Schedule the Following Appointments Follow Up with??Follow up with Neurology Follow Up with??Not on Staff, PCP Discharge Medications CHRISTEL LUGO :1980 Visit Date:05/30/2024 Medications: Please continue your medications until treatment is completed or stopped by your provider. Medications not listed below should be discontinued. Discuss any questions related to medications with your provider. What How Much When Instructions Next Dose Changed Multivitamin (multivitamin Therapeutic Multiple Vitamins oral tablet) 1 tab(s) Oral Daily Duration: 30 Days tomorrow Unchanged Alprazolam (ALPRAZolam 1 mg oral tablet) 1 tab(s) Oral 3 times a day as needed for for anxiety as needed Unchanged Durable Medical Equipment (Ambulatory BP Monitor and Cuff) See instructions Please size to patients arm. Use daily to check BP. ICD10: I10 Fax to L+C ?? as per instruction Unchanged Folic Acid (folic acid 1 mg oral tablet) 1 Milligram Oral Daily Duration: 30 Days tomorrow Unchanged Gabapentin (gabapentin 100 mg oral capsule) 2 capsule Oral Twice a day Pickup at [facility] 3 tonight Unchanged Lacosamide (lacosamide 100 mg oral tablet) 1 tab(s) Oral Twice a day Duration: 30 Days Pickup at [place] [address] tonight Unchanged Lidocaine Topical (lidocaine 4% mucous membrane solution) See instructions 5mlSwish and Spit Every 4 hours ?? at 5p Unchanged Lisinopril (lisinopril 20 mg oral tablet) 1 tab(s) Oral Daily tomorrow Unchanged lurasidone (lurasidone 60 mg oral tablet) TAKE 1 TABLET BY MOUTH DAILY WITH FOOD ?? tonight Unchanged Methadone (methadone 10 mg/ 5 mL oral solution) 140 Milligram Oral Daily last dosed @ 9:58 a.m. confirmed with [facility] ?? tomorrow at 8am Unchanged Nicotine (Nicotine 2 mg gum) 1 Each Chew Every 2 hours as needed for as needed for smoking cessation as needed Unchanged Nicotine (nicotine 2 mg oral transmucosal lozenge) 1 lozenge(s) Oral Every 2 hours as needed Unchanged Nicotine (nicotine 21 mg/ 24 hr transdermal film, extended release) 1 patch(es) Topically Daily tomorrow Unchanged Prazosin (prazosin 1 mg oral capsule) 1 capsule TAKE 1 CAPSULE BY MOUTH EVERY MORNING AND 2 CAPSULES EVERY EVENING ?? tonight Unchanged Thiamine (thiamine 100 mg oral tablet) 1 tab(s) Oral Daily Duration: 30 Days tomorrow Unchanged Topiramate (topiramate 100 mg oral tablet) 1 tab(s) Oral Twice a day Duration: 30 Days Pickup at [place] [address] tonight Pharmacy Information [facility] 3: [address] [place] [address] [phone] Prescription Given During Visit Gabapentin (gabapentin 100 mg oral capsule) - 2 capsule = 200 mg, By Mouth, 2 times a day, # 120 capsule, 0 Refills, [facility] [address], [address] [place] [phone]?? Lacosamide (lacosamide 100 mg oral tablet) - 1 tablet = 100 mg, By Mouth, 2 times a day, # 60 tablet, 0 Refills, [facility] 3, [address] [place] [address] [phone]?? Topiramate (topiramate 100 mg oral tablet) - 1 tablet = 100 mg, By Mouth, 2 times a day, # 60 tablet, 0 Refills, [facility], [address] [place] [address] [phone]?? Laboratory Results Below is a partial list of the most recent Laboratory test results done prior to this discharge. You may have had other tests and procedures not included in this list. Please discuss all test resultswith your provider. Est Creatinine Clearance - 106.37 mL/min (06/04/2024) ABG (05/31/2024) ???pH - 7.44???pCO2 - 30 mm Hg???pO2 - 80 mm Hg???Bicarbonate, Estimated - 20 mmol/L???Specimen Type - Blood Gas - ARTERIAL???Percent O2 (FIO2) - 40 Acetaminophen Level (05/30/2024) ? ?Acetaminophen Level - <5 mg/L Alcohol Level (05/30/2024) ???Ethanol, Serum or Plasma - NONE DETECTED Amphetamine Urine Screen (05/30/2024) ???Amphetamine Screen, Urine - NONE DETECTED Aspirin Level (05/30/2024) ? ?Salicylate Level - <0.3 mg/dL Barbiturate Urine Screen (05/30/2024) ???Barbiturate Screen, Urine - NONE DETECTED BASE EXCESS POC CARTRIDGE (05/30/2024) ???Base Excess (POC) POC Cartridge - NEGATIVE 4 Benzodiazepine Urine Screen (05/30/2024) ???Benzodiazepine Screen, Urine - POSITIVE Blood Culture (05/30/2024) ???Blood Culture Results - Preliminary report???Blood Culture Specimen Source - BLOOD Blood Culture #2 (05/30/2024) ???Blood Cult 2 Results - Preliminary report???Blood Culture 2 Specimen Source - BLOOD Blood Culture 2 Results (05/30/2024) ???Blood Culture 2 Isolate 1 - Comment Blood Culture Result (05/30/2024) ???Blood Culture Isolate 1 - Comment CALCIUM IONIZED POC CART (05/30/2024) ???Ionized Calcium (POC) POC Cartridge - 1.25 mmol/L Cannabinoid Urine Screen (05/30/2024) ???Cannabinoid Screen, Urine - POSITIVE CBC w/ Differential (06/01/2024) ???WBC - 10.4 k/mm3???RBC - 3.61 m/mm3???Hgb - 11.0 Gm/dL???Hct - 33.5 %???MCV - 92.8 femtoliters???MCH - 30.5 pg???MCHC - 32.8 Gm/dL???Platelet Count - 282 k/mm3???RDW-SD - 50.4 femtoliters???MPV - 9.7 femtoliters???Nucleated RBC (Automated) - 0.0 #/100 WBC'S???Abs. NRBC - 0.0 k/mm3???Abs. Neut - 6.3 k/mm3???Abs. Lymph - 3.1 k/mm3???Abs. Carbon - 0.4 k/mm3???Abs. Eo - 0.4 k/mm3???Abs. Baso - 0.2 k/mm3???Neut % - 61.2 %???Lymph % - 26.5 %???Carbon % - 3.5 %???Eos % - 3.5 %???Baso % - 1.8 %???Atypical Lymph % - 3.5 %???RBC Morphology - MODERATE???Platelet Estimate - ADEQUATE Cocaine Urine Screen (05/30/2024) ???Cocaine Metabolite Screen, Urine - NONE DETECTED Comprehensive Metabolic Panel (06/04/2024) ???Sodium - 137 mmol/L???Potassium - 3.4 mmol/L???Chloride - 104 mmol/L???Bicarbonate Level - 21 mmol/L???Anion Gap - 12 mmol/L???Glucose Level - 101 mg/dL???BUN - 11 mg/dL???Creatinine-Blood - 0.94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 Tablet ??1 tablet, Orogastric Tube, Daily Pantoprazole 40 mg Inj (Pantoprazole Inj) ??40 mg, IV Push Slowly, Every 12 hours Thiamine 100 mg Tablet (thiamine 100 mg oral tablet) ??100 mg, Orogastric Tube, Daily Topiramate 100 mg Tablet (Topamax Tablet) ??100 mg, Orogastric Tube, 2 times a day Vancomycin 1500 mg/250 mL NaCl 0.9% (Vancomycin IVPB) ??1,500 mg 250 mL, IVPB, Every 12 hours CONTINUOUS: (4) Dexmedetomidine 400 mcg / 100 mL NaCl 400 mcg (Precedex 400 mcg / 100 mL NaCl (Titrate) 400 mcg) ??400 mcg 100 mL, IV Infusion Fentanyl 1000mcg/100mL NaCL 1,000 mcg (FENTanyl 1000mcg / 100mL NaCl 1,000 mcg) ??1,000 mcg 100 mL,IV Infusion Ketamine 1000 mg in 100 mL Cont IV 1,000 mg + NaCL 0.9% (100 mL) Cont IV 100 mL (Ketamine Cont IV 1,000 mg + NaCL 0.9% for Titration 100 mL) ??100 mL, IV Infusion Propofol 10mg/mL Cont IV (100mL) 1,000 mg (Propofol 1% /100 mL 1,000 mg) ??1,000 mg 100 mL, IV Infusion PRN: (11) Acetaminophen 325 mg Tablet (Tylenol 325 mg oral tablet) ??650 mg, Orogastric Tube, Every 6 hours Albuterol/Ipratropium Inhalation Elaine 3mL (Duoneb Inhalation Solution) ??1 vials, BAND Nebulizer, 4 times a day Albuterol/Ipratropium Inhalation Elaine 3mL (Duoneb Inhalation Solution) ??1 vials, BAND Nebulizer, 4 times a day Dextrose Inj Syringe (Dextrose 50% Inj Syringe (25Gm)) ??12.5 Gm, IV Push Slowly, Every 20 minutes Dextrose Inj Syringe (Dextrose 50% Inj Syringe (25Gm)) ??25 Gm, IV Push Slowly, Every 15 minutes FENTanyl 50 mcg/mL Inj (2 mL) (FENTanyl Inj) ??25 mcg 0.5 mL, IV Push Slowly, Every 2 hours Glucagon 1 mg Inj (Glucagon Inj) ??1 mg, Intramuscular, Once Glucose 40% Gel (15 Gm) (Glucose Gel) ??15 Gm, By Mouth, Every 20 minutes Glucose 40% Gel (15 Gm) (Glucose Gel) ??30 Gm, By Mouth, Every 20 minutes Midazolam 2 mg Inj (Versed Inj) ??2 mg 2 mL, IV Push, Every 6 hours Polyethylene Glycol 17 Gm Powder (MiraLax Powder) ??17 Gm 1 pack/packet, By Mouth, Daily ? Results Recent Labs BACTERIOLOGY CF Culture Results Final report (Abnormal)?? 05/25/2024 11:40 ?? BLOOD COUNT & DIFF WBC 10.8 k/mm3 ()?? 05/30/2024 15:26 RBC 4.77 m/mm3 ()?? 05/30/2024 15:26 Hgb 14.6 Gm/dL ()?? 05/30/2024 15:26 Hct 42.5 % ()?? 05/30/2024 15:26 MCV 89.1 femtoliters ()?? 05/30/2024 15:26 MCH 30.6 pg ()?? 05/30/2024 15:26 MCHC 34.4 Gm/dL ()?? 05/30/2024 15:26 Platelet Count 309 k/mm3 ()?? 05/30/2024 15:26 RDW-SD 44.6 femtoliters ()?? 05/30/2024 15:26 MPV 9.7 femtoliters ()?? 05/30/2024 15:26 Nucleated RBC (Automated) 0.0 #/100 WBC'S ()?? 05/30/2024 15:26 Abs. NRBC 0.0 k/mm3 ()?? 05/30/2024 15:26 Abs. Neut 8.4 k/mm3 (High)?? 05/30/2024 15:26 Abs. Lymph 1.2 k/mm3 ()?? 05/30/2024 15:26 Abs. Carbon 0.5 k/mm3 ()?? 05/30/2024 15:26 Abs. Eo 0.1 k/mm3 ()?? 05/30/2024 15:26 Abs. Baso 0.1 k/mm3 ()?? 05/30/2024 15:26 Neut % 78.5 % (High)?? 05/30/2024 15:26 Lymph % 10.8 % (Low)?? 05/30/2024 15:26 Carbon % 4.5 % ()?? 05/30/2024 15:26 Eos % 0.8 % ()?? 05/30/2024 15:26 Baso % 0.8 % ()?? 05/30/2024 15:26 Hemoglobin (POC) POC Cartridge 15.3 Gm/dL ()?? 05/30/2024 15:23 Hematocrit (POC) POC Cartridge 45 % ()?? 05/30/2024 15:23 Imm Gran 4.6 % ()?? 05/30/2024 15:26 Abs. Imm Gran 0.5 k/mm3 ()?? 05/30/2024 15:26 ?? BLOOD GAS pH Venous (POC) POC Cartridge 7.42 ()?? 05/30/2024 15:23 pCO2 Venous (POC) POC Cartridge 31.3 mm Hg (Low)?? 05/30/2024 15:23 pO2 Venous (POC) POC Cartridge 23 mm Hg (Low)?? 05/30/2024 15:23 Est Bicarbonate (POC) POC Cartridge 20.2 mmol/L (Low)?? 05/30/2024 15:23 % O2 Sat Venous (POC) POC Cartridge 43 ()?? 05/30/2024 15:23 Base Excess (POC) POC Cartridge NEGATIVE 4 ()?? 05/30/2024 15:23 pH 7.34 (Low)?? 05/30/2024 21:30 pCO2 32 mm Hg (Low)?? 05/30/2024 21:30 pO2 205 mm Hg (High)?? 05/30/2024 21:30 Bicarbonate, Estimated 17 mmol/L (Low)?? 05/30/2024 21:30 Specimen Type - Blood Gas ARTERIAL ()?? 05/30/2024 21:30 Percent O2 (FIO2) 60 ()?? 05/30/2024 21:30 ?? CHEM GENERAL Sodium 141 mmol/L ()?? 05/30/2024 21:58 Potassium 3.8 mmol/L ()?? 05/30/2024 21:58 Chloride 106 mmol/L ()?? 05/30/2024 21:58 Bicarbonate Level 17 mmol/L (Low)?? 05/30/2024 21:58 Anion Gap 18 mmol/L (High)?? 05/30/2024 21:58 Sodium (POC) POC Cartridge 141 mmol/L ()?? 05/30/2024 15:23 Potassium (POC) POC Cartridge 3.9 mmol/L ()?? 05/30/2024 15:23 Glucose Level 146 mg/dL (High)?? 05/30/2024 21:58 Glucose (POC) POC Cartridge 150 (High)?? 05/30/2024 15:23 BUN 18 mg/dL ()?? 05/30/2024 21:58 Creatinine-Blood 1.34 mg/dL (High)?? 05/30/2024 21:58 Estimated GFR Creatinine 67 ML/MIN/1.73 M2 ()?? 05/30/2024 21:58 Calcium 10.7 mg/dL (High)?? 05/30/2024 21:58 Ionized Calcium (POC) POC Cartridge 1.25 mmol/L ()?? 05/30/2024 15:23 Magnesium 2.5 mg/dL (High)?? 05/30/2024 15:26 Protein, Total 8.5 Gm/dL (High)?? 05/30/2024 21:58 Albumin 4.5 Gm/dL ()?? 05/30/2024 21:58 AG Ratio 1.1 ()?? 05/30/2024 21:58 Alkaline Phosphatase 193 units/L (High)?? 05/30/2024 21:58 AST (SGOT) 79 units/L (High)?? 05/30/2024 21:58 ALT (SGPT) 142 units/L (High)?? 05/30/2024 21:58 Bilirubin, Total 0.9 mg/dL ()?? 05/30/2024 21:58 Lactate 2.0 mmol/L ()?? 05/30/2024 15:26 ?? ENDOCRINE/TUMOR MARKER TSH 1.14 uIU/mL ()?? 05/30/2024 15:26 ?? TOXICOLOGY/TDM Ethanol, Serum or Plasma NONE DETECTED mg/dL ()?? 05/30/2024 15:26 Salicylate Level <0.3 mg/dL (Low)?? 05/30/2024 15:26 Barbiturate Screen, Urine NONE DETECTED ()?? 05/30/2024 16:56 Cannabinoid Screen, Urine POSITIVE (Abnormal)?? 05/30/2024 16:56 Cocaine Metabolite Screen, Urine NONE DETECTED ()?? 05/30/2024 16:56 Benzodiazepine Screen, Urine POSITIVE (Abnormal)?? 05/30/2024 16:56 Amphetamine Screen, Urine NONE DETECTED ()?? 05/30/2024 16:56 Opiate Screen, Urine NONE DETECTED ()?? 05/30/2024 16:56 Acetaminophen Level <5 mg/L (Low)?? 05/30/2024 15:26 ?? UA/URINALYSIS Appear/Color, Urine YELLOW ()?? 05/30/2024 16:56 Specific [place], Urine 1.011 ()?? 05/30/2024 16:56 pH, Urine 7.0 ()?? 05/30/2024 16:56 Albumin, Urine 1+ (Abnormal)?? 05/30/2024 16:56 Glucose, Urine NEGATIVE ()?? 05/30/2024 16:56 Ketones, Urine TRACE (Abnormal)?? 05/30/2024 16:56 Bilirubin, Urine NEGATIVE ()?? 05/30/2024 16:56 Hemoglobin, Urine NEGATIVE ()?? 05/30/2024 16:56 Nitrite, Urine NEGATIVE ()?? 05/30/2024 16:56 Leukocyte, Urine NEGATIVE ()?? 05/30/2024 16:56 Urobilinogen NORMAL mg/dL ()?? 05/30/2024 16:56 WBC's, Urine 3 /HPF ()?? 05/30/2024 16:56 RBC's, Urine 2 /HPF ()?? 05/30/2024 16:56 Mucus SLIGHT /LPF ()?? 05/30/2024 16:56 ?? URINE OTHER Est Creatinine Clearance 74.62 mL/min ()?? 05/30/2024 23:56 ?? VIROLOGY Influenza A PCR NEGATIVE ()?? 05/30/2024 15:30 Influenza B PCR NEGATIVE ()?? 05/30/2024 15:30 RSV PCR NEGATIVE ()?? 05/30/2024 15:30 COVID-19 PCR Result NEGATIVE ()?? 05/30/2024 15:30 ? * Susan TOVAR, Darrell S: PERFORM Event Display: Admission Note Authored Date: [id number] ?? (Patient) was seen and examined on (date of service)__05/31/2024___.?Findings confirmed.?Case discussed with the resident/ICU fellow.?Assessment and plan formulated together as indicated above.? Condition of the patient:??Critically Ill Diagnoses being actively treated:?AHRF, Acute pneumonitis, bilateral pneumonia, aspiration Critical care interventions/treatments:??Possibly new seizure but suggestion for aspiration??pneumonitis. On van and Cefepime. Doubt propofol infusion syndrome based on lab results. No??evidence yet for??ARDS given p/f ratio>300. Needs aggressive sedation ??given pt- ventilator dysynchrony. ?? Critical Care Time:??50 mins Susan TOVAR ? * Jenny TOVAR, Bradford Martinez: PERFORM Event Display: Admission Note Authored Date: Versed gtt also started along with above medications for sedation. Later this morning Levophed gtt also started. Vancomycin dc'd after negative MRSA swab. EKG study * Event Display: EKG Authored Date: * Event Display: ECG 12-Lead Authored Date: Please click on pdf link to open report * Event Display: ECG 12-Lead Authored Date: Ventricular Rate: 76 BPM Atrial Rate: 76 BPM P-R Interval: 120 ms QRS Duration: 106 ms Q-T Interval: 402 ms QTC Calculation(Bazett): [address] [place]: [address] [place]: [address] [place]: 51 degrees Normal sinus rhythm Normal ECG When compared with ECG of 30-May-2024 15:26, Vent. rate has decreased by [address] no longer depressed in Inferior leads Confirmed by EDWIGE HENLEY MD ([id number]) on 06/01/2024 5:18:11 PM [place]: EDWIGE HENLEY MD * Event Display: ECG 12-Lead Authored Date: Please click on pdf link to open report * Event Display: ECG 12-Lead Authored Date: Ventricular Rate: 131 BPM Atrial Rate: 131 BPM P-R Interval: 116 ms QRS Duration: 88 ms Q-T Interval: 336 ms QTC Calculation(Bazett): [address] [place]: [address] [place]: [address] [place]: 34 degrees Sinus tachycardia Nonspecific ST abnormality Abnormal ECG When compared with ECG of 26-May-2024 13:05, T wave inversion less evident in Inferior leads Nonspecific T wave abnormality no longer evident in Anterolateral leads Confirmed by Rodolfo Yanez ([id number]) on 05/30/2024 4:06:59 PM [place]: Rodolfo Yanez [facility] Progress note * Tamela Lange RN: PERFORM, SIGN, VERIFY Event Display: Progress Note Hospital Authored Date: Patient: CHRISTEL LUGO Age: 43 years Sex: Male : 1980 Associated Diagnoses: None Author: Tamela Lange RN Findings Problem Related to Alteration in Neurological : Alteration in Neurological Function/new 06/04/2024 15:00 EST Alteration in Neuro status Related to Seizure Goals & Outcomes, Neurological Pt is safe with transfers & activities, Pt will be Neurologically stable, Pt will become pain free with appropriate intervention, Pt will maintain intact skin integrity, Pt will remain free from injury, Pt will resume/maintain adequate cardiac output, Pt will state importance of adhering to medication regime, Pt will be free from complications r/t seizure activity, Pt will be seizure controlled, Pt will remain free from injury post seizure activity Interventions, Neurological Assess/monitor neurologic status, Assess/monitor VS per unit standards & prn Goals/Interventions, Neurological Yes Neurological, Problem Start 06/01/2024 9:35 Reviewed plan with, Neurological Patient Patient Progression, Neurological Pt progressing according to plan . Nursing Data Neurological Data. : Neurological Data. 06/04/2024 8:00 EST Neurological Symptoms Unsteady gait/Ataxia Level of Consciousness Full Consciousness Orientated to person, place, time Person, Place, Time, Event Pupil description, left Regular Pupil description, right Regular Pupil reaction, left Brisk Pupil reaction, right Brisk Strength LUE 5-Active movement against gravity & full resistance Strength RUE 5-Active movement against gravity & full resistance Strength LLE 5-Active movement against gravity & full resistance Strength RLE 5-Active movement against gravity & full resistance Tone LUE Normal Tone RUE Normal Tone LLE Normal Tone RLE Normal Sensation LUE Intact Sensation RUE Intact Sensation LLE Intact Sensation RLE Intact Movement LUE Spontaneous, To command Movement RUE Spontaneous, To command Movement LLE Spontaneous, To command Movement RLE Spontaneous, To command Neuro WNL except Eyes and Movements Conjugate gaze: Move in same direction at same speed . Evaluation Pt A/Ox3. x1 assist oob. deneis n/t, headache, dizzness, n/v. 5/5 strength. On ra. pt cont lbm today. magic mouth natalie for tounge lesion. PIV kinked, iv team paged and placed R FA IV. patent and flushing. denies pain. Sz prec. 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 * Benita Rosas RN: PERFORM, SIGN, VERIFY Event Display: Progress Note Hospital Authored Date: Patient: CHRISTEL LUGO Age: 43 years Sex: Male : 1980 Associated Diagnoses: None Author: Benita Rosas RN Findings Problem Related to Alteration in Neurological : Alteration in Neurological Function/new 06/03/2024 20:00 EST Alteration in Neuro status Related to Seizure Goals & Outcomes, Neurological Pt is safe with transfers & activities, Pt will be Neurologically stable, Pt will become pain free with appropriate intervention, Pt will maintain intact skin integrity, Pt will remain free from injury, Pt will resume/maintain adequate cardiac output, Pt will state importance of adhering to medication regime, Pt will be free from complications r/t seizure activity, Pt will be seizure controlled, Pt will remain free from injury post seizure activity Interventions, Neurological 5 day Video EEG monitoring protocol, Assess & monitor for seizure activity, Assess for aspiration and status epileptics, Assess seizure Hx, frequency/type/presence ofaura, Document length of postictal phase & postictal activity, Document length of seizure and activity during seizure, During seizure activity maintain pt safety & privacy, Initiate & main tain Seizure Precautions, Minimize seizure triggering stimuli (i.e. light, noise, pain, Monitor fortherapeutic levels of anti-seizure meds, Monitor oxygenation/ventilation during seizure activity, Monitor/maintain airway patency, Obtain post seizure labs as ordered, Post seizure: assess pt for inju ry/vital signs/neuro's, Provide explanation of disorder, causes & treatment, Teach Pt/caregiverEEG Video protocol, Teach Pt/caregiver how to respond to seizures, Teach Pt/caregiver maintaining daily seizure log, Teach Pt/caregiver medications & schedule, Teach Pt/caregiver s/s of too much medication, Teach Pt/caregiver safe storage of medication at home Goals/Interventions, Neurological Yes Neurological, Problem Start 06/01/2024 9:35 Reviewed plan with, Neurological Patient Patient Progression, Neurological Pt progressing according to plan . Nursing Data Neurological Data. : Neurological Data. 06/03/2024 20:00 EST Tongue Disposition Midline Neurological Symptoms History of seizures Level of Consciousness Full Consciousness Orientated to person, place, time Person, Place, Time, Event Hallucinations None Facial Symmetry Intact Characteristics of Speech Clear and normal Swallowing Difficulty None Pupil description, left Regular Pupil description, right Regular Pupil reaction, left Brisk Pupil reaction, right Brisk Strength LUE 5-Active movement against gravity & [...] Obeys commands Verbal Response-Adult Oriented and converses [place] Coma Score 15 Stimulation None needed Stimulation None needed Pain Intensity 0 Pain Intensity 3 1 - 10 Pain Scale Score 5 Pain relief acceptable Yes Neuro WNL except Corneal/Blink Reflex Intact right, Intact left Eyes and Movements Conjugate gaze: Move in same direction at same speed Headache Mild Headaches, Characteristic Bilateral Headaches, Duration Constant Memory Intact Swallow - Neuro Normal . Evaluation Patient alert and oriented x4. No seizure activity noted. OOB to chair. Patient had complete bath and states he feel's so much better . Neuros intact. Compliant and dedicated patient. Taking in goodamounts of PO, using and incentive spirometer and production clean sputum. Eating better with addition of lidocaine mouth wash and very hungry. Slept well. Medicatied for 5/10 headache with tylenol and good results. See CIS for biophysical assessment. All safety measures in place. . Discharge Information Case Management Discharge Plan : Case Management Discharge Plan Data 05/29/2024 16:30 EST Discharge Level of Care at Discharge Homehealth/VNA Discharge VNA/Hospice/Home Care Center Well 05/29/2024 14:14 EST Discharge Level of Care at Discharge Homehealth/VNA Discharge VNA/Hospice/Home Care [facility] Discharge Transportation Arranged Life Partner Name of Agency #1 [facility] Service Categories #1 [facility], Other: Med Management Name of Person Notified of Transfer Patient Pulmonary Rehab Discharge : Pulmonary Rehab Discharge Status 06/01/2024 16:00 EST PEEP 5 06/01/2024 15:00 EST PEEP 5 06/01/2024 14:18 EST PEEP 5 06/01/2024 14:00 EST PEEP 5 06/01/2024 13:00 EST PEEP 5 06/01/2024 12:00 EST PEEP 5 06/01/2024 11:00 EST PEEP 5 06/01/2024 10:39 EST PEEP 5 06/01/2024 10:00 EST PEEP 5 06/01/2024 9:00 EST PEEP 5 06/01/2024 8:00 EST PEEP 5 06/01/2024 7:15 EST PEEP 5 06/01/2024 7:00 EST PEEP 5 06/01/2024 6:00 EST PEEP 5 06/01/2024 5:00 EST PEEP 5 06/01/2024 4:00 EST PEEP 5 06/01/2024 3:00 EST PEEP 5 06/01/2024 2:12 EST PEEP 5 06/01/2024 2:00 EST PEEP 5 06/01/2024 1:00 EST PEEP 5 06/01/2024 0:00 EST PEEP 5 05/31/2024 23:00 EST PEEP 5 05/31/2024 22:00 EST PEEP 5 05/31/2024 21:00 EST PEEP 5 05/31/2024 20:54 EST PEEP 5 05/31/2024 20:00 EST PEEP 5 05/31/2024 19:00 EST PEEP 5 05/31/2024 18:00 EST PEEP 5 05/31/2024 17:00 EST PEEP 5 05/31/2024 16:00 EST PEEP 5 05/31/2024 15:42 EST PEEP 5 05/31/2024 14:00 EST PEEP 5 05/31/2024 13:00 EST PEEP 5 05/31/2024 12:09 EST PEEP 5 05/31/2024 12:00 EST PEEP 5 05/31/2024 11:00 EST PEEP 5 05/31/2024 10:00 EST PEEP 5 05/31/2024 9:00 EST PEEP 5 05/31/2024 8:52 EST PEEP 5 05/31/2024 8:00 EST PEEP 5 05/31/2024 7:00 EST PEEP 5 05/31/2024 6:00 EST PEEP 5 05/31/2024 5:00 EST PEEP 5 05/31/2024 4:49 EST PEEP 5 05/31/2024 4:00 EST PEEP 5 05/31/2024 3:00 EST PEEP 5 05/31/2024 2:00 EST PEEP 5 05/31/2024 1:00 EST PEEP 5 05/31/2024 0:41 EST PEEP 5 05/31/2024 0:00 EST PEEP 5 05/30/2024 23:00 EST PEEP 5 05/30/2024 22:00 EST PEEP 5 05/30/2024 21:00 EST PEEP 5 05/30/2024 20:00 EST PEEP 5 05/30/2024 19:38 EST PEEP 5 05/30/2024 15:26 EST CPAP/BiPAP Mask Type Full CPAP/BiPAP Mask Size Medium * Leann Carney RN: PERFORM, SIGN, VERIFY Event Display: Progress Note Hospital Authored Date: [id number] Patient: CHRISTEL LUGO Age: 43 years Sex: Male : 1980 Associated Diagnoses: None Author: Leann Carney RN Findings Problem Related to Alteration in Neurological : Alteration in Neurological Function/new 06/03/2024 11:00 EST Alteration in Neuro status Related to Seizure Goals & Outcomes, Neurological Pt is safe with transfers & activities, Pt will be Neurologically stable, Pt will become pain free with appropriate intervention, Pt will maintain intact skin integrity, Pt will remain free from injury, Pt will resume/maintain adequate cardiac output, Pt will state importance of adhering to medication regime, Pt will be free from complications r/t seizure activity, Pt will be seizure controlled, Pt will remain free from injury post seizure activity Interventions, Neurological Assess/monitor neurologic status, Assess/monitor VS per unit standards & prn, Call/Report variances in assessments to provider, Maintain HOB at least 30 deg, Maintain patient safety if unsteady gait, Monitor for headaches, nausea, vomiting, Monitor speech fluency, aphasia, word finding difficulty, Physical assessment per unit standards, Provide emotional support to Pt/caregiver, Teach pt/caregiver discharge plan & follow up care, Teach pt/caregiver on plan ofcare, treatment, s/s & meds Goals/Interventions, Neurological Yes Neurological, Problem Start 06/01/2024 9:35 Reviewed plan with, Neurological Patient Patient Progression, Neurological Pt progressing according to plan . Nursing Data Neurological Data. : Neurological Data. 06/03/2024 16:05 EST Tongue Disposition Midline Level of Consciousness Full Consciousness Orientated to person, place, time Person, Place, Time, Event Hallucinations None Facial Symmetry Intact Characteristics of Speech Clear and normal Swallowing Difficulty Solids Pupil description, left Regular Pupil description, right [...] Movement LLE Spontaneous Movement RLE Spontaneous Gait Steady Tremors None Response Eye Opening Spontaneously Motor Response-Adult Obeys commands Verbal Response-Adult Oriented and converses [place] Coma Score 15 1 - 10 Pain Scale Score 8 Pain Interventions Non-pharmacological, Pharmacological Pain relief acceptable Yes Neuro WNL except Corneal/Blink Reflex Intact right, Intact left Eyes and Movements Conjugate gaze: Move in same direction at same speed Headache Moderate Headaches, Associated with Photophobia Headaches, Characteristic Pulsating Headaches, Duration Intermittent Headaches, Exacerbating Factors Bright lights Memory Intact Swallow - Neuro Normal . Evaluation pt AOx4 speech clear, follows simple commands. Face symmetrical tongue midline, PERRL pt reports 8/10 WILDER,PRN Tylenol given along with ice packs as needed for pain, denies dizziness and vision changes. COREA=strong, reports Numbness to right outer thigh and lip. pt ambulates with one assist, gait unsteady, PT eval pending. Lung sounds occasional rhonchi noted, self suctions at bedside with Yankauer.pt denies SOB and chest pain. Abdomen round, distended, +BSx4 last BM 2/3 pt reporting gas, simethicone given with good effect. Last BM 2/3 voiding with no complaints. good p.o. intake, pills whole. POC 132, 95, 109. Seizure precautions in place, no seizure activity noted, EEG ordered and completed. family at bedside, Dr. Tam in to see pt and family, all questions and concerns addressed. Bed in low position, call morales with in reach, bed alarm on for safety, hourly rounding, safety maintained. Patient Care team information Care Team Personnel Name: Argelia Hendrix RN Position: [facility] RN Member Role: Primary Care Nurse Name: Sudheer Bryant RN Position: [facility] RN Member Role: Primary Care Nurse Name: Ehsan aPtterson RN Position: S RN Member Role: Primary Care Nurse Name: Pierre Dominguez RN Position: S RN Member Role: Primary Care Nurse Name: Francis Muir RN Position: S RN Member Role: Primary Care Nurse Name: Chantel Pena RN Position: [facility] RN Member Role: Primary Care Nurse Name: Tamela Lange RN Position: S RN Member Role: Primary Care Nurse Name: Deonte Kitchen RN Position: [facility] RN Member Role: Primary Care Nurse Name: Rodolfo Garay RN Position: S RN Member Role: Primary Care Nurse Name: Josefina Renteria RN Position: S RN Member Role: Primary Care Nurse Name: Jackie Benavides RN Position: S RN Member Role: Primary Care Nurse Name: Not on Staff, PCP Position: [facility] Physician (General Medicine) Member Role: PCP Name: Oliver Wise RN Position: S RN Member Role: Primary Care Nurse Name: Heather Ramirez LPN Position: [facility] RN Member Role: Primary Care Nurse Care Team Related Persons Name: ADENIKE GRAHAM Name: ADENIKE KHAN Insurance Providers Guarantor name: SRINIVAS Health Plan Information #: 1 Payer: [employer] Member Number: [id number] Policy Number: NA Group Number: [facility] Health Plan Information #: 2 Payer: [employer] Member Number: [id number] Policy Number: NA Group Number: NA
== END 2024-06-17 12:30 | disposition home or self-care (01) ==
LOC: HO.HOP 11:47
PROVIDERS: PCP Family Medicine; Visit Provider Clinical Nurse Specialist Psychiatric/Mental Health
DX: F31.32 Bipolar disorder, current episode depressed, moderate (principal); F43.12 Post-traumatic stress disorder, chronic; F10.11 Alcohol abuse, in remission
CPT/HCPCS: 99215

== ENCOUNTER → 2024-06-17 11:47 | Outpatient (BNVA) | payer OTHER, SELFPAY | PROVIDERS: PCP Family Medicine; Visit Provider Clinical Nurse Specialist Psychiatric/Mental Health | DX: F43.12 Post-traumatic stress disorder, chronic (principal); F10.11 Alcohol abuse, in remission; F31.32 Bipolar disorder, current episode depressed, moderate; Z71.89 Other specified counseling | CPT/HCPCS: 99212 ==

== ENCOUNTER 2024-09-16 11:14 | Outpatient (AMB) | payer OTHER, SELFPAY ==
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
== END 2024-09-16 11:59 | disposition home or self-care (01) ==
LOC: HO.HOP 11:14
PROVIDERS: PCP Family Medicine; Visit Provider Clinical Nurse Specialist Psychiatric/Mental Health
DX: F31.32 Bipolar disorder, current episode depressed, moderate (principal); F10.11 Alcohol abuse, in remission; F43.12 Post-traumatic stress disorder, chronic
CPT/HCPCS: 99214

== ENCOUNTER → 2024-09-16 11:14 | Outpatient (BNVA) | payer OTHER, SELFPAY | PROVIDERS: PCP Family Medicine; Visit Provider Clinical Nurse Specialist Psychiatric/Mental Health | DX: F31.32 Bipolar disorder, current episode depressed, moderate (principal); F10.11 Alcohol abuse, in remission; F43.12 Post-traumatic stress disorder, chronic; Z71.89 Other specified counseling | CPT/HCPCS: 99212 ==

== ENCOUNTER 2024-12-09 11:33 | Outpatient (AMB) | payer OTHER, SELFPAY ==
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
== END 2024-12-09 12:01 | disposition home or self-care (01) ==
LOC: HO.HOP 11:33
PROVIDERS: PCP Family Medicine; Visit Provider Clinical Nurse Specialist Psychiatric/Mental Health
DX: F31.32 Bipolar disorder, current episode depressed, moderate (principal); F10.11 Alcohol abuse, in remission; F43.12 Post-traumatic stress disorder, chronic
CPT/HCPCS: 99214

== ENCOUNTER → 2024-12-09 11:33 | Outpatient (BNVA) | payer OTHER, SELFPAY | PROVIDERS: PCP Family Medicine; Visit Provider Clinical Nurse Specialist Psychiatric/Mental Health | DX: F31.32 Bipolar disorder, current episode depressed, moderate (principal); F10.11 Alcohol abuse, in remission; F43.12 Post-traumatic stress disorder, chronic; Z79.899 Other long term (current) drug therapy | CPT/HCPCS: 99212 ==

== ENCOUNTER 2025-03-16 14:09 | Outpatient (AMB) | payer OTHER, SELFPAY ==
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
== END 2025-03-16 14:38 | disposition home or self-care (01) ==
LOC: HO.HOP 14:09
PROVIDERS: PCP Family Medicine; Visit Provider Clinical Nurse Specialist Psychiatric/Mental Health
DX: F31.32 Bipolar disorder, current episode depressed, moderate (principal); F10.11 Alcohol abuse, in remission; F43.12 Post-traumatic stress disorder, chronic
CPT/HCPCS: 99214

== ENCOUNTER → 2025-03-16 14:09 | Outpatient (BNVA) | payer OTHER, SELFPAY | PROVIDERS: PCP Family Medicine; Visit Provider Clinical Nurse Specialist Psychiatric/Mental Health | DX: F31.32 Bipolar disorder, current episode depressed, moderate (principal); F10.11 Alcohol abuse, in remission; F43.12 Post-traumatic stress disorder, chronic | CPT/HCPCS: 99212 ==